=== PATIENT | female | born 1955 | race Caucasian/White ===

== ENCOUNTER 2018-01-16 14:45 | Inpatient (IN) | payer MEDICAID ==
[~2018-01-16] VITALS: Ht 165.1 cm; Wt 48.0 kg
[~2018-01-16 14:45] MED LIST: AMOX-580 PO; DIAZ10TA4 PO; DOCU100C40 PO; KEP500T PO; METH-603 PO
[2018-01-16] MEDS ORDERED: LORazepam 1 MG tablet PO ONE (15:10)
[2018-01-16] MEDS ORDERED: normal saline 1000ML IV soln IVB ONE (15:10)
[2018-01-16] MEDS ORDERED: ondansetron/PF 4mg/2ml inj IV ONE (15:10)
[2018-01-16 15:36] LABS: BASOPHILS % (AUTO) 0.1 % (0-1); EOSINOPHILS % (AUTO) 0 % (0-6); HEMATOCRIT 46.8 % (35.0-45.0); LYMPHOCYTES # (AUTO) 0.9 X10'3 (1.1-4.8); LYMPHOCYTES % (AUTO) 5.9 % (21-51); MEAN CORPUSCULAR HGB CONC 34.3 % (33.0-36.5); MEAN CORPUSCULAR VOLUME 84.5 FL (78-98); MEAN PLATELET VOLUME 8.8 FL (7.4-10.4); MONOCYTES # (AUTO) 0.5 X10'3 (0-0.9); MONOCYTES % (AUTO) 3.6 % (2-12); NEUTROPHILS # (AUTO) 13.8 X10'3 (1.8-7.7); NEUTROPHILS % (AUTO) 90.4 % (42-75); PLATELET COUNT 197 X10'3 (140-440); RED BLOOD COUNT 5.54 X10'6 (4.20-5.60); RED CELL DISTRIBUTION WIDTH 14.7 % (11.5-14.5); WHITE BLOOD COUNT 15.3 X10'3 (4.5-11.0)
[2018-01-16 15:52] LABS: ALANINE AMINOTRANSFERASE 31 U/L (12-78); ALBUMIN 3.9 G/DL (3.4-5.0); ALBUMIN/GLOBULIN RATIO 1.3 (1.1-1.5); ALKALINE PHOSPHATASE 96 IU/L (46-116); ANION GAP 14 (8-16); ASPARTATE AMINO TRANSFERASE 29 U/L (10-37); BILIRUBIN,TOTAL 0.3 MG/DL (0.1-1.0); BLOOD UREA NITROGEN 17 MG/DL (7-18); BUN/CREATININE RATIO 18.1 (6.6-38.0); CALCIUM 9.2 MG/DL (8.5-10.1); CHLORIDE 108 MMOL/L (99-107); CREATININE 0.94 MG/DL (0.40-0.90); ETHANOL < 0.010 GM/DL (0.0-0.010); MAGNESIUM 2.3 MG/DL (1.5-2.4); SODIUM 145 MMOL/L (135-145); TOTAL CARBON DIOXIDE 23.4 MMOL/L (24-32); TOTAL PROTEIN 6.8 G/DL (6.4-8.2); eGFR 61 ML/MIN
[2018-01-16 15:56] LABS: GLUCOSE 48 MG/DL (70-104)
[2018-01-16] MEDS ORDERED: proCHLORperazine 10 MG/2 ml inj IV ONE (16:15)
[2018-01-16] MEDS ORDERED: potassium Cl 20 mEq SR tablet PO ONE (16:15)
[2018-01-16 16:26] LABS: CLARITY,URINE CLEAR (Clear); COLOR,URINE YELLOW (Yellow); GLUCOSE, URINE NEGATIVE (Neg); KETONES,URINE NEGATIVE (Neg); LEUKOCYTE ESTERASE ,URINE NEGATIVE (Neg); NITRITES, URINE NEGATIVE (Neg); OCCULT BLOOD,URINE NEGATIVE (Neg); PH,URINE 5.5 (4.8-8.0); PROTEIN,URINE NEGATIVE (Neg); UROBILINOGEN,URINE 0.2 E.U/dL (0.2-1.0)
[2018-01-16 16:31] LABS: UA COLLECTION TYPE STRAIGHT CATH; URINE AMPHETAMINE SCREEN NEGATIVE (Neg); URINE BARBITUATE SCREEN NEGATIVE (Neg); URINE BENZODIAZEPINES SCREEN NEGATIVE (Neg); URINE CANNABINOID SCREEN NEGATIVE (Neg); URINE COCAINE SCREEN NEGATIVE (Neg); URINE METHADONE SCREEN NEGATIVE (Neg); URINE OPIATE SCREEN NEGATIVE (Neg); URINE PHENCYCLIDINE SCREEN NEGATIVE (Neg)
[2018-01-16] MEDS ORDERED: Dextrose 10%-water IV solution 1,000 ML IV ONE (16:48)
[2018-01-16] MEDS ORDERED: dextrose 50%-water 50ml dispensing syringe IV ONE (16:50)
[2018-01-16] MEDS ORDERED: diazepam 5mg tablet PO PRN (17:35)
[2018-01-16] MEDS ORDERED: MESSAGE TO PHARMACY PO ONE (17:40)
[2018-01-16] MEDS ORDERED: magnesium hydroxide 30ml (MOM) UD suspension PO PRN (17:40)
[2018-01-16] MEDS ORDERED: morphine 4 MG/ML inj SYRINge IV PRN (17:40)
[2018-01-16] MEDS ORDERED: insulin Lispro (HumaLOG) vial - multi-dose SQ SCH (17:40)
[2018-01-16] MEDS ORDERED: mag hydrox/Alum hydrox/simeth 30ml oral suspension PO PRN (17:40)
[2018-01-16] MEDS ORDERED: glucagon, human recombinant 1mg kit SUBCUT PRN (17:40)
[2018-01-16] MEDS ORDERED: dextrose ORAL solution 15 GM/59 ML bottle PO PRN ×2 (17:40)
[2018-01-16] MEDS ORDERED: dextrose 50%-water 50ml dispensing syringe IV PRN (17:40)
[2018-01-16] MEDS ORDERED: ondansetron/PF 4mg/2ml inj IV PRN (17:40)
[2018-01-16] MEDS ORDERED: acetaminophen 325mg tablet PO PRN (17:40)
[2018-01-16] MEDS ORDERED: ipratropium/albuterol 3ml nebule NEB PRN (18:00)
[2018-01-16 18:20] LABS: HEMOGLOBIN A1C 5.1 % (4.5-6.2)
[2018-01-16] MEDS: normal saline 1000ml 1,000 ML IV SCH ×2 (20:04→20:15)
[2018-01-16] MEDS: levetiracetam 250mg tablet PO SCH (20:04)
[2018-01-16] MEDS: dextrose 50%-water 50ml dispensing syringe IV PRN ×2 (20:13→20:14)
[2018-01-16] MEDS: insulin glargine (Lantus) pen - multi-dose SQ SCH (21:00)
[2018-01-16 21:10] VITALS: BP 142/85
[2018-01-16] MEDS: morphine 4 MG/ML inj SYRINge IV PRN (22:10)
[2018-01-17] VITALS: BP 158/83
[2018-01-17 00:57] LABS: BASOPHILS # (AUTO) 0.1 X10'3 (0-0.2); BASOPHILS % (AUTO) 0.8 % (0-1); EOSINOPHILS # (AUTO) 0.2 X10'3 (0-0.9); EOSINOPHILS % (AUTO) 1.3 % (0-6); HEMOGLOBIN 14.1 g/dl (12.0-16.0); LYMPHOCYTES # (AUTO) 1.7 X10'3 (1.1-4.8); LYMPHOCYTES % (AUTO) 13.9 % (21-51); MEAN CORPUSCULAR HEMOGLOBIN 28.7 PG (27.0-31.0); MEAN CORPUSCULAR HGB CONC 33.6 % (33.0-36.5); MEAN CORPUSCULAR VOLUME 85.5 FL (78-98); MEAN PLATELET VOLUME 8.9 FL (7.4-10.4); MONOCYTES # (AUTO) 0.6 X10'3 (0-0.9); MONOCYTES % (AUTO) 5.2 % (2-12); NEUTROPHILS # (AUTO) 9.8 X10'3 (1.8-7.7); NEUTROPHILS % (AUTO) 78.8 % (42-75); PLATELET COUNT 171 X10'3 (140-440); RED BLOOD COUNT 4.92 X10'6 (4.20-5.60); RED CELL DISTRIBUTION WIDTH 15.2 % (11.5-14.5); WHITE BLOOD COUNT 12.4 X10'3 (4.5-11.0)
[2018-01-17 01:08] LABS: ALANINE AMINOTRANSFERASE 27 U/L (12-78); ALBUMIN 3.2 G/DL (3.4-5.0); ALBUMIN/GLOBULIN RATIO 1.4 (1.1-1.5); ALKALINE PHOSPHATASE 82 IU/L (46-116); ANION GAP 10 (8-16); ASPARTATE AMINO TRANSFERASE 28 U/L (10-37); BILIRUBIN,TOTAL 0.4 MG/DL (0.1-1.0); BLOOD UREA NITROGEN 14 MG/DL (7-18); BUN/CREATININE RATIO 16.7 (6.6-38.0); CALCIUM 8.3 MG/DL (8.5-10.1); CHLORIDE 108 MMOL/L (99-107); CREATININE 0.84 MG/DL (0.40-0.90); GLUCOSE 199 MG/DL (70-104); POTASSIUM 4.1 MMOL/L (3.5-5.1); SODIUM 143 MMOL/L (135-145); TOTAL CARBON DIOXIDE 25.1 MMOL/L (24-32); TOTAL PROTEIN 5.5 G/DL (6.4-8.2); eGFR 69 ML/MIN
[2018-01-17] MEDS: morphine 4 MG/ML inj SYRINge IV PRN ×4 (02:08→18:49)
[2018-01-17] MEDS: normal saline 1000ml 1,000 ML IV SCH ×2 (06:09→23:36)
[2018-01-17] MEDS: LORazepam 2 mg/ml vial IV PRN ×2 (06:55→21:18)
[2018-01-17 07:00] VITALS: BP 99/58
[2018-01-17 08:00] VITALS: BP_SYST 135; BP_SYST 148; BP_SYST 149; BP_DIAS 93; BP_DIAS 94; BP_DIAS 97
[2018-01-17] MEDS: levetiracetam 250mg tablet PO SCH ×2 (09:21→21:19)
[2018-01-17] MEDS: docusate sod 100mg capsule PO SCH (09:21)
[2018-01-17 11:00] VITALS: BP 148/94
[2018-01-17] MEDS: enoxaparin 40mg/0.4ml syringe SQ SCH (13:54)
[2018-01-17] MEDS ORDERED: enoxaparin 30mg/0.3ml syringe SQ SCH (14:00)
[2018-01-17 20:00] VITALS: BP_SYST 138; BP_SYST 144; BP_SYST 147; BP_DIAS 89; BP_DIAS 92; BP_DIAS 93
[2018-01-17] MEDS: insulin glargine (Lantus) pen - multi-dose SQ SCH (21:00)
[2018-01-18] VITALS: BP 149/93
[2018-01-18] MEDS: morphine 4 MG/ML inj SYRINge IV PRN ×4 (03:05→23:55)
[2018-01-18 07:04] VITALS: BP 178/104
[2018-01-18 07:14] LABS: BASOPHILS % (AUTO) 0.9 % (0-1); HEMATOCRIT 36.9 % (35.0-45.0); HEMOGLOBIN 12.4 g/dl (12.0-16.0); LYMPHOCYTES # (AUTO) 1.4 X10'3 (1.1-4.8); LYMPHOCYTES % (AUTO) 30.2 % (21-51); MEAN CORPUSCULAR HGB CONC 33.5 % (33.0-36.5); MEAN CORPUSCULAR VOLUME 86.6 FL (78-98); MEAN PLATELET VOLUME 9.4 FL (7.4-10.4); MONOCYTES # (AUTO) 0.2 X10'3 (0-0.9); MONOCYTES % (AUTO) 5.2 % (2-12); NEUTROPHILS % (AUTO) 62.7 % (42-75); PLATELET COUNT 139 X10'3 (140-440); RED BLOOD COUNT 4.27 X10'6 (4.20-5.60); WHITE BLOOD COUNT 4.8 X10'3 (4.5-11.0)
[2018-01-18 07:29] LABS: ALANINE AMINOTRANSFERASE 26 U/L (12-78); ALBUMIN 3.1 G/DL (3.4-5.0); ALBUMIN/GLOBULIN RATIO 1.3 (1.1-1.5); ALKALINE PHOSPHATASE 70 IU/L (46-116); ANION GAP 9 (8-16); ASPARTATE AMINO TRANSFERASE 22 U/L (10-37); BILIRUBIN,TOTAL 0.6 MG/DL (0.1-1.0); BLOOD UREA NITROGEN 12 MG/DL (7-18); BUN/CREATININE RATIO 15.8 (6.6-38.0); CALCIUM 8.6 MG/DL (8.5-10.1); CHLORIDE 113 MMOL/L (99-107); CREATININE 0.76 MG/DL (0.40-0.90); GLUCOSE 100 MG/DL (70-104); POTASSIUM 3.9 MMOL/L (3.5-5.1); SODIUM 146 MMOL/L (135-145); TOTAL CARBON DIOXIDE 24.1 MMOL/L (24-32); TOTAL PROTEIN 5.5 G/DL (6.4-8.2); eGFR 77 ML/MIN
[2018-01-18 08:00] VITALS: BP_SYST 141; BP_SYST 142; BP_SYST 152; BP_DIAS 100; BP_DIAS 94; BP_DIAS 95
[2018-01-18] MEDS: enoxaparin 40mg/0.4ml syringe SQ SCH (08:00)
[2018-01-18] MEDS ORDERED: enoxaparin 30mg/0.3ml syringe SUBCUT SCH (08:00)
[2018-01-18] MEDS: docusate sod 100mg capsule PO SCH (08:00)
[2018-01-18] MEDS: levetiracetam 250mg tablet PO SCH (09:33)
[2018-01-18 11:00] VITALS: BP 148/103
[2018-01-18] MEDS: normal saline 1000ml 1,000 ML IV SCH ×2 (17:00→19:36)
[2018-01-18 20:00] VITALS: BP_SYST 137; BP_SYST 145; BP_SYST 153; BP_DIAS 104; BP_DIAS 88; BP_DIAS 95; BP_DIAS 96
[2018-01-18] MEDS: insulin glargine (Lantus) pen - multi-dose SQ SCH (21:00)
[2018-01-18] MEDS: LORazepam 2 mg/ml vial IV PRN (21:05)
[2018-01-19] VITALS: BP 162/98
[2018-01-19] MEDS: LORazepam 2 mg/ml vial IV PRN ×2 (03:06→13:41)
[2018-01-19 05:30] LABS: BASOPHILS # (AUTO) 0.1 X10'3 (0-0.2); BASOPHILS % (AUTO) 1.1 % (0-1); EOSINOPHILS # (AUTO) 0.1 X10'3 (0-0.9); EOSINOPHILS % (AUTO) 1.7 % (0-6); HEMATOCRIT 38.1 % (35.0-45.0); HEMOGLOBIN 13.1 g/dl (12.0-16.0); LYMPHOCYTES # (AUTO) 1.2 X10'3 (1.1-4.8); LYMPHOCYTES % (AUTO) 22.9 % (21-51); MEAN CORPUSCULAR HEMOGLOBIN 29.3 PG (27.0-31.0); MEAN CORPUSCULAR HGB CONC 34.3 % (33.0-36.5); MEAN CORPUSCULAR VOLUME 85.4 FL (78-98); MEAN PLATELET VOLUME 9.4 FL (7.4-10.4); MONOCYTES # (AUTO) 0.4 X10'3 (0-0.9); MONOCYTES % (AUTO) 7.1 % (2-12); NEUTROPHILS # (AUTO) 3.6 X10'3 (1.8-7.7); NEUTROPHILS % (AUTO) 67.2 % (42-75); PLATELET COUNT 123 X10'3 (140-440); RED BLOOD COUNT 4.46 X10'6 (4.20-5.60); RED CELL DISTRIBUTION WIDTH 15.5 % (11.5-14.5); WHITE BLOOD COUNT 5.4 X10'3 (4.5-11.0)
[2018-01-19] MEDS: normal saline 1000ml 1,000 ML IV SCH ×2 (05:36→15:36)
[2018-01-19] MEDS: morphine 4 MG/ML inj SYRINge IV PRN (05:48)
[2018-01-19 06:21] LABS: ALANINE AMINOTRANSFERASE 28 U/L (12-78); ALBUMIN 3.1 G/DL (3.4-5.0); ALBUMIN/GLOBULIN RATIO 1.3 (1.1-1.5); ALKALINE PHOSPHATASE 71 IU/L (46-116); ANION GAP 9 (8-16); ASPARTATE AMINO TRANSFERASE 23 U/L (10-37); BILIRUBIN,TOTAL 0.5 MG/DL (0.1-1.0); BLOOD UREA NITROGEN 12 MG/DL (7-18); BUN/CREATININE RATIO 15.8 (6.6-38.0); CALCIUM 8.5 MG/DL (8.5-10.1); CHLORIDE 113 MMOL/L (99-107); CREATININE 0.76 MG/DL (0.40-0.90); GLUCOSE 100 MG/DL (70-104); POTASSIUM 3.6 MMOL/L (3.5-5.1); SODIUM 147 MMOL/L (135-145); TOTAL CARBON DIOXIDE 24.6 MMOL/L (24-32); TOTAL PROTEIN 5.5 G/DL (6.4-8.2); eGFR 77 ML/MIN
[2018-01-19] MEDS: docusate sod 100mg capsule PO SCH (08:00)
[2018-01-19 08:22] VITALS: BP 161/104
[2018-01-19] MEDS ORDERED: iohexol 300mg/ml 100ml inj. ONE (09:31)
[2018-01-19] MEDS: enoxaparin 40mg/0.4ml syringe SQ SCH (11:29)
[2018-01-19 12:06] VITALS: BP 153/100
[2018-01-19 15:35] VITALS: BP_SYST 137; BP_SYST 144; BP_SYST 162; BP_DIAS 98
[2018-01-19] MEDS ORDERED: LORazepam 2 mg/ml vial IV PRN (15:50)
[2018-01-19 20:00] VITALS: BP_SYST 132; BP_SYST 134; BP_SYST 142; BP_DIAS 101; BP_DIAS 95; BP_DIAS 98
[2018-01-20] VITALS: BP 138/104
[2018-01-20 05:43] LABS: BASOPHILS # (AUTO) 0.1 X10'3 (0-0.2); EOSINOPHILS # (AUTO) 0.2 X10'3 (0-0.9); EOSINOPHILS % (AUTO) 2.5 % (0-6); HEMATOCRIT 39.5 % (35.0-45.0); HEMOGLOBIN 13.8 g/dl (12.0-16.0); LYMPHOCYTES # (AUTO) 1.3 X10'3 (1.1-4.8); LYMPHOCYTES % (AUTO) 21.1 % (21-51); MEAN CORPUSCULAR HEMOGLOBIN 29.4 PG (27.0-31.0); MEAN CORPUSCULAR VOLUME 83.9 FL (78-98); MEAN PLATELET VOLUME 9.1 FL (7.4-10.4); MONOCYTES # (AUTO) 0.4 X10'3 (0-0.9); MONOCYTES % (AUTO) 7.1 % (2-12); NEUTROPHILS # (AUTO) 4.2 X10'3 (1.8-7.7); NEUTROPHILS % (AUTO) 68.3 % (42-75); PLATELET COUNT 126 X10'3 (140-440); WHITE BLOOD COUNT 6.2 X10'3 (4.5-11.0)
[2018-01-20 05:57] LABS: ALANINE AMINOTRANSFERASE 41 U/L (12-78); ALBUMIN 3.4 G/DL (3.4-5.0); ALBUMIN/GLOBULIN RATIO 1.3 (1.1-1.5); ALKALINE PHOSPHATASE 81 IU/L (46-116); ANION GAP 10 (8-16); ASPARTATE AMINO TRANSFERASE 32 U/L (10-37); BILIRUBIN,TOTAL 0.6 MG/DL (0.1-1.0); BLOOD UREA NITROGEN 14 MG/DL (7-18); BUN/CREATININE RATIO 18.9 (6.6-38.0); CALCIUM 9.1 MG/DL (8.5-10.1); CHLORIDE 110 MMOL/L (99-107); CREATININE 0.74 MG/DL (0.40-0.90); GLUCOSE 95 MG/DL (70-104); POTASSIUM 3.9 MMOL/L (3.5-5.1); SODIUM 145 MMOL/L (135-145); TOTAL CARBON DIOXIDE 24.9 MMOL/L (24-32); eGFR 80 ML/MIN
[2018-01-20] MEDS: docusate sod 100mg capsule PO SCH (07:23)
[2018-01-20] MEDS: enoxaparin 40mg/0.4ml syringe SQ SCH (07:24)
[2018-01-20 08:00] VITALS: BP_SYST 127; BP_SYST 131; BP_SYST 134; BP_DIAS 110; BP_DIAS 89; BP_DIAS 96; BP_DIAS 98
[2018-01-20 12:36] VITALS: BP 145/95
[2018-01-20 13:28] LABS: C-PEPTIDE, SERUM 0.3 ng/mL (1.1-4.4); INSULIN 6.4 uIU/mL (2.6-24.9)
[2018-01-20] MEDS ORDERED: DIAZ10TA4 PO (16:48)
== END 2018-01-20 15:35 | DRG 53 ==
LOC: ER 14:45 → ED HOLD 17:36 → EDBEDREQ 20:16 → SUR 3N 21:00
PROVIDERS: ADMIT Family Medicine; ATTEND Internal Medicine
PROC: 4A10X4Z Monitoring of Central Nervous Electrical Activity, External Approach (ICD-10-PCS; principal; 2018-01-18)
PROC: BW211ZZ Computerized Tomography (CT Scan) of Abdomen and Pelvis using Low Osmolar Contrast (ICD-10-PCS; 2018-01-19)
DX: G40.909 Epilepsy, unspecified, not intractable, without status epilepticus (principal); F20.9 Schizophrenia, unspecified; I10 Essential (primary) hypertension; E16.2 Hypoglycemia, unspecified; E87.6 Hypokalemia; F31.9 Bipolar disorder, unspecified; M81.0 Age-related osteoporosis without current pathological fracture; B19.20 Unspecified viral hepatitis C without hepatic coma; F12.90 Cannabis use, unspecified, uncomplicated; G89.29 Other chronic pain; M54.9 Dorsalgia, unspecified; F17.210 Nicotine dependence, cigarettes, uncomplicated; Z85.118 Personal history of other malignant neoplasm of bronchus and lung; Z59.9 Problem related to housing and economic circumstances, unspecified; Z83.3 Family history of diabetes mellitus; Z68.1 Body mass index [BMI] 19.9 or less, adult; Z79.899 Other long term (current) drug therapy
CPT/HCPCS: 36415; 70551; 71046; 74018; 74177; 80053; 80305; 80320; 81003; 82948; 83036; 83525; 83605; 83735; 84681; 85025; 87040; 87070; 93005; 94760; 95816; 96374; 96375; 99285; A6258; J0780; J1650; J1815; J2060; J2270; J2405; J7030; Q9967

== ENCOUNTER 2018-01-20 15:44 | Emergency (ER) | payer MEDICAID ==
[~2018-01-20] VITALS: Ht 162.6 cm; Wt 48.0 kg
[2018-01-20] MEDS ORDERED: DIAZ10TA4 PO (16:48)
[2018-01-20] MEDS ORDERED: diazepam 5mg tablet PO PRN (17:05)
[2018-01-20 17:36] VITALS: BP 148/102
== END 2018-01-20 19:42 | disposition home or self-care (01) ==
LOC: ER 15:45
DX: G40.909 Epilepsy, unspecified, not intractable, without status epilepticus (principal); I10 Essential (primary) hypertension; G89.29 Other chronic pain; F12.90 Cannabis use, unspecified, uncomplicated; M81.0 Age-related osteoporosis without current pathological fracture; F11.10 Opioid abuse, uncomplicated; Z98.890 Other specified postprocedural states; Z56.0 Unemployment, unspecified
CPT/HCPCS: 99283

== ENCOUNTER 2018-04-16 16:21 | Emergency (ER) | payer MEDICAID ==
[~2018-04-16] VITALS: Ht 157.5 cm; Wt 60.0 kg
[~2018-04-16 16:21] MED LIST changes: -AMOX-580 PO; -DOCU100C40 PO; -KEP500T PO; -METH-603 PO; +sodium bicarbonate (8.4%) 1 mEq/ml syringe ONE
[2018-04-16] MEDS ORDERED: dextrose 50%-water 50ml dispensing syringe IV ONE ×2 (16:40→17:50)
[2018-04-16] MEDS ORDERED: dextrose 5%-normal saline 1,000 ML IV ONE (16:50)
[2018-04-16] MEDS ORDERED: normal saline 1000ML IV soln IVB ONE (17:35)
[2018-04-16] MEDS ORDERED: HYDROcodone/acetaminophen 5mg/325mg tablet PO ONE (19:15)
[2018-04-16 20:24] LABS: BASOPHILS % (AUTO) 0 % (0-1); EOSINOPHILS % (AUTO) 0.1 % (0-6); HEMOGLOBIN 14.3 g/dl (12.0-16.0); LYMPHOCYTES % (AUTO) 7.4 % (21-51); MEAN CORPUSCULAR HEMOGLOBIN 29.4 PG (27.0-31.0); MEAN CORPUSCULAR HGB CONC 34.1 % (33.0-36.5); MEAN CORPUSCULAR VOLUME 86.4 FL (78-98); MEAN PLATELET VOLUME 9.1 FL (7.4-10.4); MONOCYTES # (AUTO) 0.2 X10'3 (0-0.9); MONOCYTES % (AUTO) 1.2 % (2-12); NEUTROPHILS # (AUTO) 12.3 X10'3 (1.8-7.7); NEUTROPHILS % (AUTO) 91.3 % (42-75); PLATELET COUNT 197 X10'3 (140-440); RED BLOOD COUNT 4.86 X10'6 (4.20-5.60); RED CELL DISTRIBUTION WIDTH 14.7 % (11.5-14.5); WHITE BLOOD COUNT 13.5 X10'3 (4.5-11.0)
[2018-04-16 20:38] LABS: CLARITY,URINE CLEAR (Clear); COLOR,URINE YELLOW (Yellow); GLUCOSE, URINE 250 mg/dl (Neg); KETONES,URINE NEGATIVE (Neg); LEUKOCYTE ESTERASE ,URINE NEGATIVE (Neg); NITRITES, URINE NEGATIVE (Neg); OCCULT BLOOD,URINE NEGATIVE (Neg); PH,URINE 5.5 (4.8-8.0); PROTEIN,URINE NEGATIVE (Neg); UROBILINOGEN,URINE 0.2 E.U/dL (0.2-1.0)
[2018-04-16 20:38] LABS: ALANINE AMINOTRANSFERASE 22 U/L (12-78); ALBUMIN 3.3 G/DL (3.4-5.0); ALBUMIN/GLOBULIN RATIO 1.1 (1.1-1.5); ALKALINE PHOSPHATASE 131 IU/L (46-116); ANION GAP 9 (8-16); ASPARTATE AMINO TRANSFERASE 21 U/L (10-37); BILIRUBIN,TOTAL 0.2 MG/DL (0.1-1.0); BLOOD UREA NITROGEN 22 MG/DL (7-18); BUN/CREATININE RATIO 23.7 (6.6-38.0); CALCIUM 8.3 MG/DL (8.5-10.1); CHLORIDE 107 MMOL/L (99-107); CREATININE 0.93 MG/DL (0.40-0.90); GLUCOSE 165 MG/DL (70-104); POTASSIUM 3.7 MMOL/L (3.5-5.1); SODIUM 139 MMOL/L (135-145); TOTAL PROTEIN 6.2 G/DL (6.4-8.2); eGFR 61 ML/MIN
[2018-04-16 20:42] LABS: ETHANOL < 0.010 GM/DL (0.0-0.010); TROPONIN I < 0.04 NG/ML (0.0-0.05)
[2018-04-16 20:46] LABS: UA COLLECTION TYPE CLN CATCH MIDSTREAM
[2018-04-16 20:47] LABS: URINE AMPHETAMINE SCREEN NEGATIVE (Neg); URINE BARBITUATE SCREEN NEGATIVE (Neg); URINE BENZODIAZEPINES SCREEN NEGATIVE (Neg); URINE CANNABINOID SCREEN NEGATIVE (Neg); URINE COCAINE SCREEN NEGATIVE (Neg); URINE METHADONE SCREEN POSITIVE (Neg); URINE OPIATE SCREEN NEGATIVE (Neg); URINE PHENCYCLIDINE SCREEN NEGATIVE (Neg)
[2018-04-17] MEDS: HYDROcodone/acetaminophen 5mg/325mg tablet PO PRN ×2 (04:51→11:15)
[2018-04-17 06:20] VITALS: BP 147/99
[2018-04-17] MEDS ORDERED: KEP500T PO (10:29)
[2018-04-18 13:26] LABS: C-PEPTIDE, SERUM 1.9 ng/mL (1.1-4.4); INSULIN 12.9 uIU/mL (2.6-24.9)
== END 2018-04-17 12:45 | disposition home or self-care (01) ==
LOC: ER 16:22
DX: E16.2 Hypoglycemia, unspecified (principal); I10 Essential (primary) hypertension; G89.29 Other chronic pain; M81.0 Age-related osteoporosis without current pathological fracture; F12.90 Cannabis use, unspecified, uncomplicated; F11.90 Opioid use, unspecified, uncomplicated; Z85.118 Personal history of other malignant neoplasm of bronchus and lung; Z90.89 Acquired absence of other organs; Z56.0 Unemployment, unspecified; Z98.890 Other specified postprocedural states
CPT/HCPCS: 36415; 71045; 80053; 80305; 80320; 81003; 82948; 83525; 84443; 84484; 84681; 85025; 93005; 96374; 96376; 99285; J7030; J7042

== ENCOUNTER 2018-08-03 16:29 | Emergency (ER) | payer MEDICAID ==
[~2018-08-03] VITALS: Ht 162.6 cm; Wt 47.7 kg
[~2018-08-03 16:29] MED LIST changes: -DIAZ10TA4 PO; +KEP500T PO; -sodium bicarbonate (8.4%) 1 mEq/ml syringe ONE
[2018-08-03] MEDS ORDERED: LORazepam 2 mg/ml vial IV ONE (16:50)
[2018-08-03] MEDS ORDERED: normal saline 1000ML IV soln IVB ONE (16:50)
[2018-08-03] MEDS: magnesium 1gm/100ml D5W IVPB 100 ML IV SCH ×2 (17:54→18:43)
[2018-08-03 17:58] LABS: BASOPHILS % (AUTO) 0.7 % (0-1); EOSINOPHILS % (AUTO) 0.6 % (0-6); HEMATOCRIT 44.9 % (35.0-45.0); HEMOGLOBIN 15.1 g/dl (12.0-16.0); LYMPHOCYTES # (AUTO) 0.7 X10'3 (1.1-4.8); LYMPHOCYTES % (AUTO) 12.5 % (21-51); MEAN CORPUSCULAR HGB CONC 33.8 % (33.0-36.5); MEAN PLATELET VOLUME 9.9 FL (7.4-10.4); MONOCYTES # (AUTO) 0.2 X10'3 (0-0.9); MONOCYTES % (AUTO) 2.9 % (2-12); NEUTROPHILS # (AUTO) 4.9 X10'3 (1.8-7.7); NEUTROPHILS % (AUTO) 83.3 % (42-75); PLATELET COUNT 118 X10'3 (140-440); RED BLOOD COUNT 5.22 X10'6 (4.20-5.60); RED CELL DISTRIBUTION WIDTH 14.2 % (11.5-14.5); WHITE BLOOD COUNT 5.9 X10'3 (4.5-11.0)
[2018-08-03 18:14] LABS: ALANINE AMINOTRANSFERASE 46 U/L (12-78); ALBUMIN 3.9 G/DL (3.4-5.0); ALBUMIN/GLOBULIN RATIO 1.3 (1.1-1.5); ALKALINE PHOSPHATASE 128 IU/L (46-116); ANION GAP 9 (8-16); ASPARTATE AMINO TRANSFERASE 37 U/L (10-37); BILIRUBIN,TOTAL 0.4 MG/DL (0.1-1.0); BLOOD UREA NITROGEN 15 MG/DL (7-18); CALCIUM 9.1 MG/DL (8.5-10.1); CHLORIDE 102 MMOL/L (99-107); CREATINE KINASE 47 U/L (26-192); CREATININE 0.94 MG/DL (0.40-0.90); ETHANOL < 0.010 GM/DL (0.0-0.010); GLUCOSE 93 MG/DL (70-104); POTASSIUM 4.3 MMOL/L (3.5-5.1); SODIUM 140 MMOL/L (135-145); TOTAL CARBON DIOXIDE 28.9 MMOL/L (24-32); TOTAL PROTEIN 6.9 G/DL (6.4-8.2); eGFR 61 ML/MIN
[2018-08-03 19:20] VITALS: BP 169/103
[2018-08-03 20:01] LABS: CLARITY,URINE CLEAR (Clear); COLOR,URINE STRAW (Yellow); GLUCOSE, URINE NEGATIVE (Neg); KETONES,URINE NEGATIVE (Neg); LEUKOCYTE ESTERASE ,URINE NEGATIVE (Neg); NITRITES, URINE NEGATIVE (Neg); OCCULT BLOOD,URINE NEGATIVE (Neg); PROTEIN,URINE NEGATIVE (Neg); UROBILINOGEN,URINE 0.2 E.U/dL (0.2-1.0)
[2018-08-03 20:02] LABS: URINE AMPHETAMINE SCREEN NEGATIVE (Neg); URINE BARBITUATE SCREEN NEGATIVE (Neg); URINE BENZODIAZEPINES SCREEN NEGATIVE (Neg); URINE CANNABINOID SCREEN NEGATIVE (Neg); URINE COCAINE SCREEN NEGATIVE (Neg); URINE METHADONE SCREEN POSITIVE (Neg); URINE OPIATE SCREEN NEGATIVE (Neg); URINE PHENCYCLIDINE SCREEN NEGATIVE (Neg)
[2018-08-03 20:07] LABS: UA COLLECTION TYPE CLN CATCH MIDSTREAM
== END 2018-08-03 19:25 | disposition home or self-care (01) ==
LOC: ER 16:30
DX: G40.909 Epilepsy, unspecified, not intractable, without status epilepticus (principal); I10 Essential (primary) hypertension; G89.29 Other chronic pain; M81.0 Age-related osteoporosis without current pathological fracture; F12.90 Cannabis use, unspecified, uncomplicated; F11.90 Opioid use, unspecified, uncomplicated; Z56.0 Unemployment, unspecified; Z90.89 Acquired absence of other organs; Z98.890 Other specified postprocedural states; Z85.118 Personal history of other malignant neoplasm of bronchus and lung
CPT/HCPCS: 36415; 80053; 80305; 80320; 81003; 82550; 85025; 93005; 96365; 96366; 96375; 99285; J2060; J7030

== ENCOUNTER 2018-10-03 12:24 | Emergency (ER) | payer MEDICAID, OTHER ==
[~2018-10-03] VITALS: Ht 162.6 cm; Wt 50.0 kg
--- NOTE | 2018-10-03 13:21 | NUR ---
ASSUMED CARE OF PT FROM JAMSHID GARCIA, PT IS RESTING QUIETLY ON GURNEY, RESP EVEN AND UNLABORED
--- NOTE | 2018-10-03 13:37 | NUR ---
PT IS 63YO FEMALE C/O HEADACHE AFTER HAVING SZ, PT HAS NO PMD, NO NEUROLOGIST, "MY SON GIVES ME MY MEDS", PT IS NONCOMPLIANT WITH TAKING MEDS PRESCRIBED, PT IS GCS 15, ALERT, RESP EVEN AND UNLABORED, SKIN P/W/D, WAITING TO GO TO CT
[2018-10-03] MEDS ORDERED: ketorolac trometh. 30mg/ml inj. IM ONE (14:30)
--- NOTE | 2018-10-03 14:59 | NUR ---
PT SAID SHE CAN TAKE CAB HOME WHERE SHE LIVES WITH HER SON, HAS MONEY TO PAY FOR IT, GAVE PT SOCKS,
[2018-10-03 15:00] VITALS: BP 154/91
== END 2018-10-03 15:01 | disposition home or self-care (01) ==
LOC: ER 12:24
DX: G40.909 Epilepsy, unspecified, not intractable, without status epilepticus (principal); I10 Essential (primary) hypertension; G89.29 Other chronic pain; F11.10 Opioid abuse, uncomplicated; M81.0 Age-related osteoporosis without current pathological fracture; F12.10 Cannabis abuse, uncomplicated; Z85.118 Personal history of other malignant neoplasm of bronchus and lung; Z86.19 Personal history of other infectious and parasitic diseases; Z90.89 Acquired absence of other organs; Z79.899 Other long term (current) drug therapy; Z56.0 Unemployment, unspecified
CPT/HCPCS: 70450; 96372; 99284; J1885

== ENCOUNTER 2020-07-15 12:33 | Emergency (ER) | payer OTHER ==
[~2020-07-15] VITALS: Ht 162.6 cm; Wt 47.7 kg
--- NOTE | 2020-07-15 14:06 | NUR ---
pt out to ct via vishnu with global sales director
[2020-07-15 14:19] LABS: BASOPHILS % (AUTO) 0.4 % (0-1); EOSINOPHILS # (AUTO) 0.1 X10'3 (0-0.9); HEMATOCRIT 44.4 % (35.0-45.0); HEMOGLOBIN 14.9 g/dl (12.0-16.0); LYMPHOCYTES # (AUTO) 1.1 X10'3 (1.1-4.8); LYMPHOCYTES % (AUTO) 14.9 % (21-51); MEAN CORPUSCULAR HEMOGLOBIN 28.8 PG (27.0-31.0); MEAN CORPUSCULAR HGB CONC 33.5 g/dL (33.0-36.5); MEAN CORPUSCULAR VOLUME 86.1 FL (78-98); MEAN PLATELET VOLUME 10.1 FL (7.4-10.4); MONOCYTES # (AUTO) 0.4 X10'3 (0-0.9); MONOCYTES % (AUTO) 5.4 % (2-12); NEUTROPHILS # (AUTO) 5.8 X10'3 (1.8-7.7); NEUTROPHILS % (AUTO) 78.3 % (42-75); PLATELET COUNT 154 X10'3 (140-440); RED BLOOD COUNT 5.16 X10'6 (4.20-5.60); RED CELL DISTRIBUTION WIDTH 14.6 % (11.5-14.5); WHITE BLOOD COUNT 7.5 X10'3 (4.5-11.0)
[2020-07-15 14:31] LABS: ALANINE AMINOTRANSFERASE 30 U/L (12-78); ALBUMIN 3.9 G/DL (3.4-5.0); ALBUMIN/GLOBULIN RATIO 1.3 (1.1-1.5); ALKALINE PHOSPHATASE 84 IU/L (46-116); ANION GAP 7 (8-16); ASPARTATE AMINO TRANSFERASE 26 U/L (10-37); BILIRUBIN,TOTAL 0.7 MG/DL (0.1-1.0); BLOOD UREA NITROGEN 14 MG/DL (7-18); BUN/CREATININE RATIO 15.1 (6.6-38.0); CALCIUM 9.3 MG/DL (8.5-10.1); CHLORIDE 105 MMOL/L (99-107); CREATININE 0.93 MG/DL (0.40-0.90); GLUCOSE 101 MG/DL (70-104); POTASSIUM 4.3 MMOL/L (3.5-5.1); SODIUM 142 MMOL/L (135-145); TOTAL CARBON DIOXIDE 29.9 MMOL/L (24-32); TOTAL PROTEIN 6.9 G/DL (6.4-8.2); eGFR 61 ML/MIN
[2020-07-15] MEDS ORDERED: Levetiracetam-NS 500mg/100ml 100 ML IV ONE (15:26)
--- NOTE | 2020-07-15 15:26 | NUR ---
PT HOME PHONE NUMBER: [phone]
[2020-07-15 16:56] VITALS: BP 164/98
[2020-07-15] MEDS ORDERED: Levetiracetam-NS 500mg/100ml 100 ML IV SCH (20:00)
== END 2020-07-15 16:58 | disposition home or self-care (01) ==
LOC: ER 12:33
DX: G40.909 Epilepsy, unspecified, not intractable, without status epilepticus (principal); I12.9 Hypertensive chronic kidney disease with stage 1 through stage 4 chronic kidney disease, or unspecified chronic kidney disease; N18.9 Chronic kidney disease, unspecified; G89.29 Other chronic pain; F12.90 Cannabis use, unspecified, uncomplicated; Z86.69 Personal history of other diseases of the nervous system and sense organs; Z86.19 Personal history of other infectious and parasitic diseases; Z87.440 Personal history of urinary (tract) infections; Z86.14 Personal history of Methicillin resistant Staphylococcus aureus infection; Z85.118 Personal history of other malignant neoplasm of bronchus and lung; Z90.89 Acquired absence of other organs; Z98.890 Other specified postprocedural states; Z56.0 Unemployment, unspecified; Z79.899 Other long term (current) drug therapy
CPT/HCPCS: 36415; 70450; 80053; 82948; 85025; 96365; 99284; J1953; 96374

== ENCOUNTER 2022-01-12 00:55 | Emergency (ER) | payer MEDICAID ==
[~2022-01-12] VITALS: Ht 162.6 cm; Wt 56.4 kg
[~2022-01-12 00:55] MED LIST changes: -KEP500T PO; +NO HOME MEDS
[2022-01-12 02:20] LABS: BASOPHILS % (AUTO) 0.7 % (0-1); EOSINOPHILS % (AUTO) 0.2 % (0-6); HEMATOCRIT 38.3 % (35.0-45.0); HEMOGLOBIN 12.3 g/dl (12.0-16.0); LYMPHOCYTES # (AUTO) 0.5 X10'3 (1.1-4.8); LYMPHOCYTES % (AUTO) 6.3 % (21-51); MEAN CORPUSCULAR HEMOGLOBIN 26.1 PG (27.0-31.0); MEAN CORPUSCULAR HGB CONC 32.2 g/dL (33.0-36.5); MEAN CORPUSCULAR VOLUME 81.2 FL (78-98); MONOCYTES # (AUTO) 0.4 X10'3 (0-0.9); MONOCYTES % (AUTO) 5.8 % (2-12); NEUTROPHILS # (AUTO) 6.3 X10'3 (1.8-7.7); PLATELET COUNT 189 X10'3 (140-440); RED BLOOD COUNT 4.71 X10'6 (4.20-5.60); RED CELL DISTRIBUTION WIDTH 14.8 % (11.5-14.5); WHITE BLOOD COUNT 7.3 X10'3 (4.5-11.0)
[2022-01-12 02:34] LABS: ALANINE AMINOTRANSFERASE 42 U/L (12-78); ALBUMIN 3.1 G/DL (3.4-5.0); ALBUMIN/GLOBULIN RATIO 0.9 (1.1-1.5); ALKALINE PHOSPHATASE 129 IU/L (46-116); ANION GAP 10 (8-16); ASPARTATE AMINO TRANSFERASE 34 U/L (10-37); BILIRUBIN,TOTAL 0.4 MG/DL (0.1-1.0); BLOOD UREA NITROGEN 34 MG/DL (7-18); BUN/CREATININE RATIO 53.1 (6.6-38.0); CALCIUM 8.8 MG/DL (8.5-10.1); CHLORIDE 101 MMOL/L (99-107); CREATININE 0.64 MG/DL (0.40-0.90); GLUCOSE 114 MG/DL (70-104); POTASSIUM 4.3 MMOL/L (3.5-5.1); SODIUM 138 MMOL/L (135-145); TOTAL CARBON DIOXIDE 26.9 MMOL/L (24-32); TOTAL PROTEIN 6.7 G/DL (6.4-8.2); eGFR > 90 ML/MIN
[2022-01-12 02:44] LABS: ETHANOL < 0.010 GM/DL (0.0-0.010)
[2022-01-12 04:06] LABS: URINE AMPHETAMINE SCREEN NEGATIVE (Neg); URINE BARBITUATE SCREEN NEGATIVE (Neg); URINE BENZODIAZEPINES SCREEN NEGATIVE (Neg); URINE CANNABINOID SCREEN NEGATIVE (Neg); URINE COCAINE SCREEN NEGATIVE (Neg); URINE METHADONE SCREEN NEGATIVE (Neg); URINE OPIATE SCREEN POSITIVE (Neg); URINE PHENCYCLIDINE SCREEN NEGATIVE (Neg)
--- NOTE | 2022-01-12 05:19 | NUR ---
Received pt from main ER via wheelchair, pt cooperative and is resting.
--- NOTE | 2022-01-12 06:44 | NUR ---
Received report from RADHA John. Pt. sleeping on her right side, noted rise and fall of chest. No distress noted.
--- NOTE | 2022-01-12 07:49 | NUR ---
Pt. sleeping on her right side, noted rise and fall of chest. No distress noted.
[2022-01-12] MEDS ORDERED: LISI-643 PO (08:08)
[2022-01-12] MEDS ORDERED: PANT40TA54 PO (08:08)
[2022-01-12] MEDS ORDERED: FURO-150 PO (08:08)
[2022-01-12] MEDS ORDERED: MONT-40 PO (08:08)
[2022-01-12] MEDS ORDERED: CLON-527 PO (08:08)
--- NOTE | 2022-01-12 08:29 | NUR ---
Assisted patient to restroom, pt is legally blind and needs one person assist to guide her. Pt. eating breakfast at bedside now.
[2022-01-12] MEDS: pantoprazole 40mg Tablet.DR PO SCH (09:01)
[2022-01-12] MEDS: lisinopril 10 MG tablet PO SCH (09:01)
[2022-01-12] MEDS: montelukast 10mg tablet PO SCH (09:01)
[2022-01-12] MEDS: furosemide 20MG tablet PO SCH (09:01)
--- NOTE | 2022-01-12 09:49 | NUR ---
1:1 done at bedside. Pt. cooperative. Requesting pain medication and klonopin.
[2022-01-12] MEDS: clonazePAM 1mg tablet PO PRN ×2 (10:09→20:04)
[2022-01-12] MEDS ORDERED: ibuprofen tablet 400 MG TABLET PO ONE (10:25)
[2022-01-12] MEDS ORDERED: ibuprofen 200mg tablet PO ONE (10:30)
--- NOTE | 2022-01-12 10:45 | NUR ---
Pt. assisted to restroom. Pt. lying in bed now, noted rise and fall of chest.
--- NOTE | 2022-01-12 11:45 | NUR ---
Pt. resting in bed, rise and fall of chest noted.
--- NOTE | 2022-01-12 12:43 | NUR ---
Pt. sleeping on her back, noted rise and fall of chest.
--- NOTE | 2022-01-12 13:27 | NUR ---
Pt. sleeping on her back, noted rise and fall of her chest.
--- NOTE | 2022-01-12 14:30 | NUR ---
Pt. assisted to the restroom. No distress noted.
--- NOTE | 2022-01-12 15:24 | NUR ---
Pt. lying in bed on her back with eyes closed. Noted rise and fall of chest.
--- NOTE | 2022-01-12 16:30 | NUR ---
Pt. sleeping on her back, noted rise and fall of chest.
[2022-01-12 17:51] LABS: CLARITY,URINE CLEAR (Clear); COLOR,URINE YELLOW (Yellow); GLUCOSE, URINE NEGATIVE (Neg); KETONES,URINE TRACE mg/dl (Neg); LEUKOCYTE ESTERASE ,URINE TRACE (Neg); NITRITES, URINE NEGATIVE (Neg); OCCULT BLOOD,URINE NEGATIVE (Neg); PH,URINE 6.5 (4.8-8.0); PROTEIN,URINE NEGATIVE (Neg); UROBILINOGEN,URINE 0.2 E.U/dL (0.2-1.0)
--- NOTE | 2022-01-12 17:54 | NUR ---
Coding Director assisted pt. to the restroom then set up pt. dinner at bedside by opening packages and describing where items were located. Pt. sitting on the side of her bed eating dinner.
[2022-01-12 17:56] LABS: UA COLLECTION TYPE NON-SPECIFIED
[2022-01-12 17:57] LABS: BACTERIA,URINE FEW /HPF (Neg); MUCUS STRANDS NONE SEEN /LPF (Neg); RBC,URINE NONE SEEN /HPF (0-2); SQUAMOUS EPITHELIAL CELL,UR FEW /LPF (FEW); WBC,URINE 0-4 /HPF (0-4)
--- NOTE | 2022-01-12 18:20 | NUR ---
Pt. assisted to restroom, pt had a medium BM, report given to RADHA Perez.
--- NOTE | 2022-01-12 18:30 | NUR ---
PT up to use the restroom, voided without issue. PT ate 75% of her meal.
[2022-01-12] MEDS ORDERED: HYDR-3965 PO (20:16)
--- NOTE | 2022-01-12 20:39 | NUR ---
Pt requests PRDilcia klonopin, which is given to her
--- NOTE | 2022-01-12 20:53 | NUR ---
Pt up to use the restoroom. Pt is steady on her feet, she just needs guiding due to being legally blind.
[2022-01-12] MEDS: ibuprofen tablet 400 MG TABLET PO PRN (22:19)
--- NOTE | 2022-01-12 22:21 | NUR ---
Pt demands moreno, RN talks with pharmacy, CURES report done, no moreno could be confirmed. PT is upset and tells staff she will cut our heads off. PRN motrin order obtained for pt and given to her 400mg, Q8 hours as needed.
--- NOTE | 2022-01-12 23:16 | NUR ---
Pt up to use the restroom. PT voided. Pt states she is hungry, given turkey and cheese sandwhich.
[2022-01-13] MEDS: clonazePAM 1mg tablet PO PRN ×3 (00:24→17:37)
--- NOTE | 2022-01-13 01:30 | NUR ---
Pt given crystal kong, due to agitation. 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 That shit doesn't fly with me." "I'll cut off your fucking legs. "
--- NOTE | 2022-01-13 02:22 | NUR ---
Pt is talking to self, "I dont taste like poultry. Three packages of crackers!
[2022-01-13] MEDS ORDERED: LORazepam 1 MG tablet PO ONE (02:40)
[2022-01-13] MEDS ORDERED: OLANZapine 2.5MG tablet PO ONE (02:40)
--- NOTE | 2022-01-13 02:40 | NUR ---
Pt stands up with he cane, shakes it in the air and yells "fuck you! fuck you!" She believes she is at [facility], and refuses to believe she is in the hospital. She calls staff "bitches" and states, "I'll cut your legs off." Dr. Norwood consulted, zyprexa 5mg and ativan 1mg ordered.
--- NOTE | 2022-01-13 03:30 | NUR ---
Pt up to the restroom, voids. Pt is less agitated
--- NOTE | 2022-01-13 05:38 | NUR ---
Pt is resting quietly
--- NOTE | 2022-01-13 06:32 | NUR ---
Patient laying supine. Eyes closed but does not appear to be asleep. Continue to monitor.
[2022-01-13] MEDS: furosemide 20MG tablet PO SCH (07:44)
[2022-01-13] MEDS: lisinopril 10 MG tablet PO SCH (07:44)
[2022-01-13] MEDS: pantoprazole 40mg Tablet.DR PO SCH (07:44)
[2022-01-13] MEDS: montelukast 10mg tablet PO SCH (07:44)
[2022-01-13] MEDS: ibuprofen tablet 400 MG TABLET PO PRN (07:45)
--- NOTE | 2022-01-13 08:20 | NUR ---
Patient ate breakfast and assisted to the BR (3rd time this morning0
--- NOTE | 2022-01-13 08:47 | NUR ---
[facility], evaluating patient.
--- NOTE | 2022-01-13 08:58 | NUR ---
RN gave patient a cup of coffee. No distress observed. Continue to monitor.
--- NOTE | 2022-01-13 09:01 | NUR ---
Spoke to Marco [facility]. Patient does not meet criteria for a 5150 hold. There is paperwork in the chart with a request for Probate conservatorship signed by Dr Faustin on 12/13/21. Bee Robber Anai also has been working with patient. RN to advise Dr Brown. Continue to monitor.
--- NOTE | 2022-01-13 09:19 | NUR ---
Patient cussing at staff. RN asked patient to please refrain. Patient using the F word and called RN a bitch. Continues to mumble. Continue to monitor.
--- NOTE | 2022-01-13 10:32 | NUR ---
Security called due to patient yelling and cussing at staff. Patient to BR with cane and was assisted by Tech. Patient coming out of BR and pretended to use her can as a machine gun and pointed it at RN. Patient walked back to her bed with Security at side. Continue to monitor.
[2022-01-13] MEDS: HYDROcodone/acetaminophen 5mg/325mg tablet PO PRN (12:08)
--- NOTE | 2022-01-13 12:20 | NUR ---
Patient ambulatory to with assistance of Mian Armas. Patient out of BR and assisted by RN and Tech. Patient getting confused where to go and RN and Tech attempting to direct her. Patient is obstinate, cussing at staff and refusing help although she attempted to sit on a paper trash bin she thought was a chair. RN and Tech coaxing patient to bed and RN placed her hand under her arm to assist. Patient got angry and attempted to hit RN with cane. Tech and RN got cane away from patient and got her in the bed. RN advised patient that her lunch tray was on her bedside table. Patient started screaming that she never got breakfast which she did. Patient ate 50% of her lunch. Continue to monitor.
--- NOTE | 2022-01-13 12:47 | NUR ---
RN gave patient a Banquete for pain and to prevent withdrawal. RN noted that patient came into [facility] on 10/23/21 upstairs for Failure to Thrive. Patient was on Methadone and then removed from methadone and placed on Banquete 5/325mg Q4 Hours PRN and sometimes received Morphine. RN spoke to Dr Brown who ordered Banquete 5/325 Q 6 Hours. RN gave patient her Banquete when she went back to bed after going to . Continue to monitor.
--- NOTE | 2022-01-13 13:05 | NUR ---
Patient had come up to the nurses station with her cane and her blanket and sheet and was attempting to place it on the counter. Patient stated she is trying to cover up the hole that RN looks at her through. RN asked patient to go back to her room. Patient stated. "I'm going beat the fucking shit out of you." RN called for back up and patient had to be placed back in bed. Continue to monitor.
[2022-01-13] MEDS ORDERED: QUEtiapine 25mg tablet PO ONE (13:25)
--- NOTE | 2022-01-13 16:05 | NUR ---
Patient cussing nonstop at staff. Using perverse language at staff. Patient will not stop when asked. Continue to monitor.
[2022-01-13] MEDS ORDERED: ziprasidone IM 20mg inj **IM only IM ONE (17:05)
--- NOTE | 2022-01-13 17:05 | NUR ---
RN gave patient her can back so she could go to the BR. Patient started wacking her mattress with the cane and RN and Tech had to pry it away from her. Patient continues her nonstop tirade. RN received and order for I.MSilverio Hyde which she got upstairs. RN will place patient on a monitor. Continue to monitor.
--- NOTE | 2022-01-13 19:31 | NUR ---
Patient now lyingh in bed. Pt previously trying to get up and hit staff.
--- NOTE | 2022-01-13 20:35 | NUR ---
Patient in bed lying down quietly. Leads attached to patient w/o to much duress. P-65, R-20.
--- NOTE | 2022-01-13 22:31 | NUR ---
Patient lying on back seemingly asleep. P-67, R-25.
--- NOTE | 2022-01-14 00:31 | NUR ---
Patient appears to be sleeping. P-71, R-28
[2022-01-14] MEDS: HYDROcodone/acetaminophen 5mg/325mg tablet PO PRN (01:58)
--- NOTE | 2022-01-14 02:04 | NUR ---
Kaylyn twoke up and yelled for crackeers. Pt brought crackers and string cheese. Pt then got up and tried to walk to restroom alone, pt brought safely to restroom with the aide of tech and nurse. Patient then states she is in pain, pt brought a PRN [place]. Pt now in bed lying down quietly.
[2022-01-14] MEDS ORDERED: diphenhydrAMINE 50 mg/ml inj ONE (02:44)
[2022-01-14] MEDS ORDERED: haloperidol lactate 5mg/ml inj IM ONE ×2 (02:45)
[2022-01-14] MEDS ORDERED: diphenhydrAMINE 50 mg/ml inj IM ONE ×2 (02:45)
[2022-01-14] MEDS ORDERED: LORazepam 2 mg/ml vial IM ONE ×2 (02:45)
--- NOTE | 2022-01-14 03:19 | NUR ---
Patient attempted to get up out of bed w/o help from tech. Patient began yelling and hitting when staff ran to side pt to a sitting position. Patient attempted to take nurses thumb and twist back. Security was called to help deescalate pt and provide an opportunity for the nurse to talk to a Dr and grab medications. Nurse and security arrived on unit. 5mg Haldol, 50mg Benaryl, 2mg Ativan IM injection given to pt. Patient continues to be resistant to care.
--- NOTE | 2022-01-14 03:56 | NUR ---
Patient continues to yell profanities at staff, yelling "concaine, cocaine." Repoted from security she exposed her genitals and told security to look at her clitoris.Patients pants were pulled up and patient put back in bed. Will continue to monitor.
--- NOTE | 2022-01-14 05:56 | NUR ---
Patient is asleep. No new occurances to report.
--- NOTE | 2022-01-14 06:49 | NUR ---
Patient sleeping/snoring. Oxygen sat 93% on room air. RN covered patient with blanket. Continue to monitor.
[2022-01-14] MEDS: pantoprazole 40mg Tablet.DR PO SCH (07:30)
[2022-01-14] MEDS: furosemide 20MG tablet PO SCH (08:00)
[2022-01-14] MEDS: lisinopril 10 MG tablet PO SCH (08:00)
[2022-01-14] MEDS: montelukast 10mg tablet PO SCH (08:00)
--- NOTE | 2022-01-14 08:20 | NUR ---
Patient is still sleeping and no distress observed. Continue to monitor.
--- NOTE | 2022-01-14 08:21 | NUR ---
RN spoke to Anai, Radioactivity Technician, who stated patient is being conserved LPS though in the chart patient has application for Probate conservatorship. Anai states patient has schizophrenia and Bipolar d/o.
--- NOTE | 2022-01-14 10:25 | NUR ---
Patient continues to sleep. Skin is warm and dry. No distress observed. Continue to monitor.
--- NOTE | 2022-01-14 12:15 | NUR ---
Patient eating. Continue to monitor.
--- NOTE | 2022-01-14 12:41 | NUR ---
Patient ate some of her lunch and drank a good amount of water. No distress observed. Continue to monitor.
--- NOTE | 2022-01-14 14:33 | NUR ---
Patient up to BR and needed assistance to find the BR. Patient got agitated for a minute and after using the BR went back to bed. Continue to monitor.
--- NOTE | 2022-01-14 16:11 | NUR ---
Patient asleep supine in her bed. No distress observed. Continue to monitor.
--- NOTE | 2022-01-14 16:56 | NUR ---
Patient is sitting up in bed just know. No distress observed. Continue to monitor.
--- NOTE | 2022-01-14 18:43 | NUR ---
Assumed care of patient that is sleeping. No distress noted.
--- NOTE | 2022-01-14 21:42 | NUR ---
Patient continues to sleep in supine position. Breathing is even and unlabored. No s/sx of distress.
--- NOTE | 2022-01-14 23:29 | NUR ---
Patient sleeping on her right side. Breathing unlabored. No s/sx of distress.
--- NOTE | 2022-01-15 00:33 | NUR ---
Patient continues sleeping on her right side. Breathing unlabored. No s/sx of distress.
--- NOTE | 2022-01-15 03:55 | NUR ---
Patient appears to be sleeping. No distress noted.
--- NOTE | 2022-01-15 05:39 | NUR ---
Patient appears to be sleeping. No distress noted.
--- NOTE | 2022-01-15 06:15 | NUR ---
Patient laying on left side. No distress observed. Continue to monitor.
[2022-01-15] MEDS: furosemide 20MG tablet PO SCH (08:03)
[2022-01-15] MEDS: pantoprazole 40mg Tablet.DR PO SCH (08:03)
[2022-01-15] MEDS: montelukast 10mg tablet PO SCH (08:03)
[2022-01-15] MEDS: lisinopril 10 MG tablet PO SCH (08:04)
[2022-01-15] MEDS: HYDROcodone/acetaminophen 5mg/325mg tablet PO PRN ×2 (08:05→20:42)
--- NOTE | 2022-01-15 08:07 | NUR ---
Patient laying supine with her eyes open. RN sat patient up and patient took her medication. RN oriented patient to breakfast, buttered and jellied her toast, put cream and sugar in her coffee and put sugar in her cream of wheat. Patient eating breakfast. Continue to monitor.
--- NOTE | 2022-01-15 10:12 | NUR ---
Patient sleeping on left side. No distress observed. Continue to monitor.
--- NOTE | 2022-01-15 12:04 | NUR ---
RN awoke patient. Patient sat up on her own. RN offered to take patient to BR but patient refused. RN oriented patient to food. Patient is eating. No distress observed. Continue to monitor.
--- NOTE | 2022-01-15 13:50 | NUR ---
Patient taken to the bathroom, clothes changed and fresh linen placed on bed. Patient was calm and cooperative. Continue to monitor.
--- NOTE | 2022-01-15 14:19 | NUR ---
Patient sleeping supine. No distress observed. Continue to monitor.
--- NOTE | 2022-01-15 16:05 | NUR ---
Patient laying in bed supine. No distress observed. Continue to monitor.
--- NOTE | 2022-01-15 17:50 | NUR ---
Patient sitting up in bed. No distress observed. Continue to monitor.
--- NOTE | 2022-01-15 20:37 | NUR ---
Pt lying supine in bed with eyes closed. Awakens to voice. Denies any needs at this time. Appears in no acute distress. Bed in lowest position.
--- NOTE | 2022-01-15 22:03 | NUR ---
Pt awake and lying supine. Respirations 16. Denies any needs at this time. No acute distress noted.
--- NOTE | 2022-01-16 00:04 | NUR ---
Pt lying in bed turned right laterally with eyes closed. Respirations 15. Pt appears in no acute distress. Bed in lowest position.
--- NOTE | 2022-01-16 02:02 | NUR ---
Pt sitting up in bed with eyes open. Pt denies any needs at this time. Pt appears in no acute distress.
[2022-01-16] MEDS: HYDROcodone/acetaminophen 5mg/325mg tablet PO PRN ×2 (02:46→14:06)
--- NOTE | 2022-01-16 04:06 | NUR ---
Pt sitting up in bed with eyes open. RN assisted pt to bathroom. Respirations 16. Pt in no acute distress.
--- NOTE | 2022-01-16 06:30 | NUR ---
Assumed care of pt. Pt sleeping in supine position. No distress noted.
--- NOTE | 2022-01-16 08:22 | NUR ---
Pt sitting up for breakfast. Pt ate her meal, drank coffee and took her pills. She is currently drinking coffee sitting up. No complaints at this time.
[2022-01-16] MEDS: montelukast 10mg tablet PO SCH (09:02)
[2022-01-16] MEDS: furosemide 20MG tablet PO SCH (09:02)
[2022-01-16] MEDS: lisinopril 10 MG tablet PO SCH (09:04)
[2022-01-16] MEDS: clonazePAM 1mg tablet PO PRN ×2 (09:22→17:47)
[2022-01-16] MEDS: ibuprofen tablet 400 MG TABLET PO PRN (09:22)
[2022-01-16] MEDS: pantoprazole 40mg Tablet.DR PO SCH (09:22)
--- NOTE | 2022-01-16 09:30 | NUR ---
Pt is irritable and agitated. Pt given Motrin and Clonazepam. Pt is now resting with her eyes closed.
--- NOTE | 2022-01-16 09:55 | NUR ---
Left messages with social workers Mary [phone] and Anai [phone] regarding the need for safety planning, placement, and discharge.
--- NOTE | 2022-01-16 11:26 | NUR ---
Pt supine. RR even and unlabored. Will continue to monitor.
--- NOTE | 2022-01-16 13:06 | NUR ---
Pt resting supine with her knees bent. She ate her lunch and fell right back to sleep. Pt has been calm and cooperative on the unit today. Will continue to monitor.
--- NOTE | 2022-01-16 14:01 | NUR ---
pt got up, asked for pain medication.
--- NOTE | 2022-01-16 14:58 | NUR ---
Pt continues to sleep. She was up and was assisted to the BR. She is now resting calmly. RR even and unlabored. RR even and unlabored.
--- NOTE | 2022-01-16 16:25 | NUR ---
Pt is sitting on her bed talking to herself. Pt given a cup of coffee and smiled then said, "thank you." Will continue to monitor her.
--- NOTE | 2022-01-16 18:24 | NUR ---
Pt resting on her bed. Report off to RADHA Red
--- NOTE | 2022-01-16 19:00 | NUR ---
Assisted pt to restroom, pleasant mood. No signs of distress. Back to bed sleeping. Assessment completed and patient has no complaints at this time.
[2022-01-16] MEDS ORDERED: LORazepam 2 mg/ml vial IM STA (19:52)
[2022-01-16] MEDS ORDERED: haloperidol lactate 5mg/ml inj IM STA (19:52)
[2022-01-16] MEDS ORDERED: diphenhydrAMINE 50 mg/ml inj IM STA (19:52)
[2022-01-16] MEDS ORDERED: haloperidol lactate 5mg/ml inj ONE (20:01)
--- NOTE | 2022-01-16 20:15 | NUR ---
Pt very agitated, yelling and kicking bedside table, states she is hearing voices. Redirection failed, attempted to distract pt without success. Medication orders received from ED physician.
--- NOTE | 2022-01-16 21:02 | NUR ---
Pt asleep in bed, respirations unlabored, no s/s of distress.
--- NOTE | 2022-01-16 21:58 | NUR ---
The patient appears to be sleeping
--- NOTE | 2022-01-17 | NUR ---
The patient has been awake off and on. She is hostile and irritable at times.
--- NOTE | 2022-01-17 01:12 | NUR ---
THe patient appears to be sleeping
--- NOTE | 2022-01-17 02:38 | NUR ---
The patient appears to be sleeping
--- NOTE | 2022-01-17 03:55 | NUR ---
The patient appears to be sleeping
--- NOTE | 2022-01-17 05:01 | NUR ---
THe patient appears to be sleeping
[2022-01-17] MEDS: pantoprazole 40mg Tablet.DR PO SCH (07:30)
--- NOTE | 2022-01-17 07:35 | NUR ---
Assumed care from RADHA Red. Pt recieved IM medication last night she appears sleeping w/o distress. RR even and unlabored. Will continue to monitor.
--- NOTE | 2022-01-17 07:36 | NUR ---
Pt appears to be sleeping. RR even and unlabored. Will continue to monitor.
--- NOTE | 2022-01-17 08:00 | NUR ---
Unable to wake pt for her medicine or her meal. Will allow her to sleep until she wakes on her own. Pt recieved IM medications last night. RR even and unlabored. No distress noted.
[2022-01-17] MEDS: furosemide 20MG tablet PO SCH (09:34)
[2022-01-17] MEDS: montelukast 10mg tablet PO SCH (09:35)
[2022-01-17] MEDS: lisinopril 10 MG tablet PO SCH (09:35)
--- NOTE | 2022-01-17 09:35 | NUR ---
Pt up to BR. Pt requires assitance DT being legally thuan. Pt's sheets changed. Pt assisted back to bed and given her breakfast and medications. Pt is now sitting up at the side of the bed eating her breakfast. She is quiet and cooperative.
[2022-01-17] MEDS: HYDROcodone/acetaminophen 5mg/325mg tablet PO PRN (10:24)
[2022-01-17] MEDS: clonazePAM 1mg tablet PO PRN (10:24)
--- NOTE | 2022-01-17 10:52 | NUR ---
Pt appears to be sleeping. RR even and unlabored. Will continue to monitor.
--- NOTE | 2022-01-17 12:44 | NUR ---
Pt continues to sleep. VS completed and placed in the chart. RR 28. Will continue to monitor.
--- NOTE | 2022-01-17 14:39 | NUR ---
Pt assisted to the BR then back to her bed per her request. Pt requesting coffee. Coffe being brewed. Will continue to monitor.
--- NOTE | 2022-01-17 15:04 | NUR ---
Pt supine. RR 20 even and unlabored. Will continue to monitor.
--- NOTE | 2022-01-17 16:48 | NUR ---
Attempt made to assist pt with clean clothing and a bed bath. Pt yelled stating, "these are clean I can see better than you think." Continued to prompt and encourage pt to clean up and put on clean clothing. She just got angry. She is now resting on her side with her eyes closed. She appears to be sleeping. Will continue to monitor.
--- NOTE | 2022-01-17 18:55 | NUR ---
Pt sitting up eating her dinner. She remains confused and somewhat disoriented. Pt is quiet and does not engage in conversation with staff. Will continue to monitor.
--- NOTE | 2022-01-17 20:08 | NUR ---
Pt resting supine. She appears to be sleeping. Will continue to monitor.
--- NOTE | 2022-01-17 20:35 | NUR ---
Pt resting on her back. She appears to be sleeping. Will continue to monitor.
[2022-01-17] MEDS: OLANZapine 2.5MG tablet PO SCH (20:58)
--- NOTE | 2022-01-17 23:00 | NUR ---
Pt sleeping in bed in no apparent distress. Pt up x 1 to the bathroom. No complaints.
[2022-01-18] MEDS: clonazePAM 1mg tablet PO PRN ×2 (00:41→10:03)
--- NOTE | 2022-01-18 01:00 | NUR ---
Pt awoke requesting medicine around 1245. Pt given klonopin.
[2022-01-18] MEDS: HYDROcodone/acetaminophen 5mg/325mg tablet PO PRN ×3 (03:05→20:38)
--- NOTE | 2022-01-18 03:05 | NUR ---
Pt awoke for the bathroom and after ambulating to bathroom and back, asked for her norco for "all over body pain". Hysham given.
--- NOTE | 2022-01-18 05:00 | NUR ---
Pt fell back to sleep after receiving norco and remains asleep in no apparent distress.
--- NOTE | 2022-01-18 07:00 | NUR ---
Pt appears to be sleeping comfortably, no restless movements. Audible breath sounds, rise and fall of chest noted.
[2022-01-18] MEDS: montelukast 10mg tablet PO SCH (08:35)
[2022-01-18] MEDS: pantoprazole 40mg Tablet.DR PO SCH (08:35)
[2022-01-18] MEDS: furosemide 20MG tablet PO SCH (08:35)
[2022-01-18] MEDS: lisinopril 10 MG tablet PO SCH (08:36)
--- NOTE | 2022-01-18 09:00 | NUR ---
Pt awake eating breakfast. Pt compliant with medication and care. Pt denies all psychotic symptoms. Pt presents a little sedated. Pt able to make needs known. Pt requires some assistance as she is legally blind.
--- NOTE | 2022-01-18 10:58 | NUR ---
Pt up to the bathroom with assistance. Gait weak and unsteady.
--- NOTE | 2022-01-18 11:58 | NUR ---
in view of RN,respirations regular, we will monitor.
[2022-01-18] MEDS: lactose-reduced food (Ensure Enlive) - 237ml bottle PO SCH ×3 (12:37→18:26)
--- NOTE | 2022-01-18 13:06 | NUR ---
Patient resting comfortably, visible chest rise and fall. No distress.
--- NOTE | 2022-01-18 15:25 | NUR ---
Pt resting comfortably, visible rise and fall of chest. Respirations even and unlabored.
[2022-01-18] MEDS: gabapentin 100mg capsule PO SCH (16:15)
--- NOTE | 2022-01-18 17:04 | NUR ---
Pt resting comfortably, rise and fall of chest noted. Respirations even and unlabored.
--- NOTE | 2022-01-18 18:50 | NUR ---
Pt was assisted to the bathroom and c/o "having a kidney infection," but then said "I had one when I was younger." Recevied order from Dr. Andersen for U/A. Pt's vitals are WNL. Will continue to monitor pt.
--- NOTE | 2022-01-18 18:54 | NUR ---
Talked with Dr. Andersen about pt overall health and last diagnosis of failure to thrive.
[2022-01-18] MEDS: OLANZapine 2.5MG tablet PO SCH (20:38)
--- NOTE | 2022-01-18 20:46 | NUR ---
PASSED MEDICATIONS TO PT. ASSISTED PT IN BED TO GET MORE COMFORTABLE. PT LEFT RESTING QUITELY AND FALLING ASLEEP.
--- NOTE | 2022-01-18 22:40 | NUR ---
PT SLEEPING PEACEFULLY IN BED. CHEST RISE AND FALL VISUALIZED. NO NEEDS OR CONCERNS AT THIS TIME.
--- NOTE | 2022-01-19 00:56 | NUR ---
PT IS SLEEPING PEACEFULLY IN BED. CHEST RISE AND FALL CONFIRMED. PT PINK AND INTACT. NO CONCERNS AT THIS TIME.
[2022-01-19] MEDS: clonazePAM 1mg tablet PO PRN ×2 (01:01→22:48)
[2022-01-19] MEDS: gabapentin 100mg capsule PO SCH ×4 (01:01→23:08)
--- NOTE | 2022-01-19 02:34 | NUR ---
ASSISTED PT TO GET A DRINK OF WATER. PT VERBALIZED NEEDING NOTHING AT THIS TIME. PT PROCEEDED TO GO BACK TO SLEEP. PT PINK AND BREATHING FINE.
--- NOTE | 2022-01-19 04:49 | NUR ---
PT SLEEPING QUIETLY. CHEST RISE AND FALL OBSERVED.
--- NOTE | 2022-01-19 06:32 | NUR ---
Assumed care from [facility] nurse Ferraro. Pt sleeing in low fowlers position. Audible breath sounds noted, respirations even and unlabored.
--- NOTE | 2022-01-19 07:38 | NUR ---
Spoke with Dr. Garza regarding pt's decreased blood pressure trend. Pt had recent failure to thrive diagnosis, as she was on medical unit for two months prior to AMA then returning to hospital less then 24 hours later. Pt's current vitals are stable, pt has no complaints. Waiting pending urine sample as pt c/o "I have a kidney infection," but no other complaints.
[2022-01-19] MEDS: furosemide 20MG tablet PO SCH (08:00)
[2022-01-19] MEDS: montelukast 10mg tablet PO SCH (08:04)
[2022-01-19] MEDS: lactose-reduced food (Ensure Enlive) - 237ml bottle PO SCH ×3 (08:05→18:04)
[2022-01-19] MEDS: pantoprazole 40mg Tablet.DR PO SCH (08:05)
[2022-01-19] MEDS: lisinopril 10 MG tablet PO SCH (08:12)
--- NOTE | 2022-01-19 08:25 | NUR ---
HELD PT'S AM LASIX AND LISNIPRIL R/T BP NOT IN PERIMETERS. DOCTOR NOTIFIED.
--- NOTE | 2022-01-19 08:30 | NUR ---
Patient was compliant with medication. Pt sitting on side of bed eating breakfast. Pt requires assistance as she is legally blind. No distress noted.
--- NOTE | 2022-01-19 09:10 | NUR ---
Dr. López evaluated patient. Ordered PT consult, hold benzo and [place] for today. Pt ambulated with cane and 1PA. Ordered Tylenol 650 mg q6h for pain. Will continue to monitor fluid intake.
[2022-01-19] MEDS: ibuprofen tablet 400 MG TABLET PO PRN (09:34)
--- NOTE | 2022-01-19 09:35 | NUR ---
Administered Motrin 400mg for generalized pain. Pt took without issue.
--- NOTE | 2022-01-19 09:54 | NUR ---
Pt requested her PRN klonopin when she was told it was being held pt began "what the fuck!" "I take it for nonepileptic seizures bitch!" Pt started a tirade about going to [facility] for a surgery, when told she wasn't going pt stated "you don't know shit!"
--- NOTE | 2022-01-19 09:56 | NUR ---
Pt lying in bed talking about "they used to give me the babies." Pt swearing using profanities, but continues to lie in bed.
--- NOTE | 2022-01-19 10:00 | NUR ---
Pt attempted to get out bed and walk independently. Pt was reminded she needed assitance r/t a weak gait. Pt agreed stating "just forget about it I feel weak." Pt lying in bed talking to herself.
--- NOTE | 2022-01-19 10:34 | NUR ---
Pt appears to be resting quietly. Will continue to monitor.
--- NOTE | 2022-01-19 11:12 | NUR ---
Music Publisher came back from break and told pt continues to lay in bed cursing and yelling. Pt attempts to get out of bed without assistance, but is redirectable. Will continue to monitor for escalation.
--- NOTE | 2022-01-19 11:16 | NUR ---
Pt's benzo and Xavier held r/t to sedation.
--- NOTE | 2022-01-19 11:45 | NUR ---
Pt resting comfortably, noted rise and fall of chest.
--- NOTE | 2022-01-19 12:29 | NUR ---
Pt continues to rest comfortably, no distress noted.
--- NOTE | 2022-01-19 13:15 | NUR ---
Pt awake eating her lunch. Pt continues to perseverate asking for her Klonopin. Pt redirectable.
--- NOTE | 2022-01-19 13:30 | NUR ---
Pt ambulated to bathroom with assist. Urine sample obtained.
[2022-01-19 14:41] LABS: CLARITY,URINE CLEAR (Clear); COLOR,URINE YELLOW (Yellow); GLUCOSE, URINE NEGATIVE (Neg); KETONES,URINE TRACE mg/dl (Neg); LEUKOCYTE ESTERASE ,URINE NEGATIVE (Neg); NITRITES, URINE POSITIVE (Neg); OCCULT BLOOD,URINE NEGATIVE (Neg); PH,URINE 5.5 (4.8-8.0); PROTEIN,URINE NEGATIVE (Neg); UROBILINOGEN,URINE 0.2 E.U/dL (0.2-1.0)
[2022-01-19 14:45] LABS: UA COLLECTION TYPE CLN CATCH MIDSTREAM
[2022-01-19 14:47] LABS: BACTERIA,URINE 3+ /HPF (Neg); MUCUS STRANDS FEW /LPF (Neg); RBC,URINE 0-2 /HPF (0-2); SQUAMOUS EPITHELIAL CELL,UR FEW /LPF (FEW)
[2022-01-19] MEDS: acetaminophen 325mg tablet PO PRN (15:30)
--- NOTE | 2022-01-19 15:33 | NUR ---
Pt lying in her bed "nurse..." "I want my medicine." Pt was administered her 1600 Gabapentin, which seemed to appease her. Randomly yells "I am tired of people telling me I did something to those kids!" "I was born with negativity." Will continue to monitor.
[2022-01-19] MEDS ORDERED: divalproex 250mg tablet, delayed-release PO ONE ×2 (17:25→20:00)
[2022-01-19 17:47] LABS: BASOPHILS % (AUTO) 0.6 % (0-1); EOSINOPHILS # (AUTO) 0.1 X10'3 (0-0.9); EOSINOPHILS % (AUTO) 1.7 % (0-6); HEMATOCRIT 38.9 % (35.0-45.0); LYMPHOCYTES # (AUTO) 1.1 X10'3 (1.1-4.8); LYMPHOCYTES % (AUTO) 17.4 % (21-51); MEAN CORPUSCULAR HEMOGLOBIN 26.5 PG (27.0-31.0); MEAN CORPUSCULAR HGB CONC 33.4 g/dL (33.0-36.5); MEAN CORPUSCULAR VOLUME 79.4 FL (78-98); MONOCYTES # (AUTO) 0.7 X10'3 (0-0.9); MONOCYTES % (AUTO) 10.8 % (2-12); NEUTROPHILS # (AUTO) 4.4 X10'3 (1.8-7.7); NEUTROPHILS % (AUTO) 69.5 % (42-75); PLATELET COUNT 204 X10'3 (140-440); RED BLOOD COUNT 4.89 X10'6 (4.20-5.60); RED CELL DISTRIBUTION WIDTH 14.4 % (11.5-14.5); WHITE BLOOD COUNT 6.3 X10'3 (4.5-11.0)
[2022-01-19 17:56] LABS: ALANINE AMINOTRANSFERASE 32 U/L (12-78); ALBUMIN/GLOBULIN RATIO 0.9 (1.1-1.5); ALKALINE PHOSPHATASE 126 IU/L (46-116); ANION GAP 7 (8-16); ASPARTATE AMINO TRANSFERASE 30 U/L (10-37); BILIRUBIN,TOTAL 0.3 MG/DL (0.1-1.0); BLOOD UREA NITROGEN 44 MG/DL (7-18); BUN/CREATININE RATIO 52.4 (6.6-38.0); CALCIUM 8.5 MG/DL (8.5-10.1); CHLORIDE 104 MMOL/L (99-107); CREATININE 0.84 MG/DL (0.40-0.90); GLUCOSE 107 MG/DL (70-104); POTASSIUM 4.7 MMOL/L (3.5-5.1); SODIUM 139 MMOL/L (135-145); TOTAL CARBON DIOXIDE 27.8 MMOL/L (24-32); TOTAL PROTEIN 6.2 G/DL (6.4-8.2); eGFR 68 ML/MIN
--- NOTE | 2022-01-19 18:41 | NUR ---
Patient laying in bed with eyes closed; no apparent distress observed. Self repositioning.
[2022-01-19] MEDS ORDERED: cephalexin 250mg capsule PO ONE (20:00)
[2022-01-19] MEDS: OLANZapine 2.5MG tablet PO SCH (20:11)
[2022-01-19] MEDS: cephalexin 500mg capsule PO SCH (20:11)
[2022-01-19] MEDS: lactobacillus rhamnosus 10,000 MMU CELLS/CAPSULE PO SCH (20:11)
--- NOTE | 2022-01-19 20:39 | NUR ---
Patient appears to be sleeping; no apparent distress observed and self repositioning. She was pleasant and cooperative with medication.
--- NOTE | 2022-01-19 23:12 | NUR ---
Patient laying in bed quietly; appears restless at this time. Patient had an incontinent episode of diahrrea; cleaned up with PCT help and sweats provided. She c/o increased anxiety and PRN Clonazepam provided.
--- NOTE | 2022-01-19 23:46 | NUR ---
Patient appears agitated; doctor notified and will visit with patient. Curing Room Supervisor got back ER OF and she bvegan yelling about the school doing her child wrong and talking about [employer] mistreating her. Patient attempted to walk away from her bed, unsteady on her feet, but not allowing staff to help her.
[2022-01-19] MEDS: HYDROcodone/acetaminophen 5mg/325mg tablet PO PRN (23:55)
--- NOTE | 2022-01-20 00:32 | NUR ---
Patient continues to respond to IS; Dr. Brown has not been able to visit at bedside yet.
--- NOTE | 2022-01-20 00:42 | NUR ---
Patient threw her ring toward staff; ring placed in bag/labeld and will be placed with her belongings.
--- NOTE | 2022-01-20 01:57 | NUR ---
Patient appears to be settling down; laying in bed quietly.
--- NOTE | 2022-01-20 04:05 | NUR ---
Patient sleeping; no apparent distress observed and self repositioning.
[2022-01-20] MEDS: lactose-reduced food (Ensure Enlive) - 237ml bottle PO SCH ×3 (08:32→18:23)
[2022-01-20] MEDS: cephalexin 500mg capsule PO SCH ×2 (08:33→20:13)
[2022-01-20] MEDS: montelukast 10mg tablet PO SCH (08:33)
[2022-01-20] MEDS: gabapentin 100mg capsule PO SCH ×2 (08:33→16:07)
[2022-01-20] MEDS: furosemide 20MG tablet PO SCH (08:33)
[2022-01-20] MEDS: lactobacillus rhamnosus 10,000 MMU CELLS/CAPSULE PO SCH ×2 (08:33→20:14)
[2022-01-20] MEDS: pantoprazole 40mg Tablet.DR PO SCH (08:35)
[2022-01-20] MEDS: lisinopril 10 MG tablet PO SCH (08:37)
[2022-01-20] MEDS: HYDROcodone/acetaminophen 5mg/325mg tablet PO PRN (17:25)
--- NOTE | 2022-01-20 18:37 | NUR ---
Patient eating dinner at bedside; pleasant and cooperative. No apparent distress observed.
[2022-01-20] MEDS: OLANZapine 2.5MG tablet PO SCH (20:14)
[2022-01-20] MEDS: clonazePAM 1mg tablet PO PRN (20:14)
--- NOTE | 2022-01-20 22:00 | NUR ---
Patient sleeping; no apparent distress observed and self repositioning.
--- NOTE | 2022-01-21 01:25 | NUR ---
Patient up to the restroom with staff assist. Pleasant and cooperative; no apparent distress observed.
--- NOTE | 2022-01-21 03:25 | NUR ---
Patient sleeping; no apparent distress. Chest rise and fall observed.
--- NOTE | 2022-01-21 05:44 | NUR ---
Patient remains asleep; no apparent distress and self repositioned.
--- NOTE | 2022-01-21 06:38 | NUR ---
Patient sitting up on the side of her bed. No distress observed. Continue to monitor.
--- NOTE | 2022-01-21 08:10 | NUR ---
Patient eating breakfast. No distress observed. Continue to monitor.
[2022-01-21] MEDS: gabapentin 100mg capsule PO SCH ×3 (08:23→16:06)
[2022-01-21] MEDS: lactobacillus rhamnosus 10,000 MMU CELLS/CAPSULE PO SCH ×2 (08:23→20:34)
[2022-01-21] MEDS: montelukast 10mg tablet PO SCH (08:23)
[2022-01-21] MEDS: furosemide 20MG tablet PO SCH (08:23)
[2022-01-21] MEDS: cephalexin 500mg capsule PO SCH ×2 (08:23→20:34)
[2022-01-21] MEDS: pantoprazole 40mg Tablet.DR PO SCH (08:23)
[2022-01-21] MEDS: lisinopril 10 MG tablet PO SCH (08:24)
[2022-01-21] MEDS: lactose-reduced food (Ensure Enlive) - 237ml bottle PO SCH ×3 (08:55→18:00)
[2022-01-21] MEDS: HYDROcodone/acetaminophen 5mg/325mg tablet PO PRN ×2 (09:01→16:05)
[2022-01-21] MEDS: ibuprofen tablet 400 MG TABLET PO PRN (09:01)
--- NOTE | 2022-01-21 10:03 | NUR ---
Patient sleeping supine. No distress observed. Continue to monitor.
--- NOTE | 2022-01-21 12:03 | NUR ---
Patient eating lunch. No distress observed. Continue to monitor.
--- NOTE | 2022-01-21 14:03 | NUR ---
Patient ambulatory to with assistance of Anna Pappas. No distress observed. Continue to monitor.
--- NOTE | 2022-01-21 16:11 | NUR ---
Patient took pain medication. Patient c/o 6/ generalized pain. Continue to monitor.
[2022-01-21] MEDS: OLANZapine 2.5MG tablet PO SCH (20:34)
[2022-01-21] MEDS: clonazePAM 1mg tablet PO PRN (20:41)
--- NOTE | 2022-01-21 21:55 | NUR ---
Pt sleeping at this time. Pt had two episodes of yelling obscenities at staff, triggered by wanting her walking stick. Pt uncooperative with assessment did take all medications and requested PRN Klonipin.
[2022-01-22] MEDS: HYDROcodone/acetaminophen 5mg/325mg tablet PO PRN ×4 (00:12→21:51)
[2022-01-22] MEDS: gabapentin 100mg capsule PO SCH ×4 (00:12→20:17)
--- NOTE | 2022-01-22 00:17 | NUR ---
Pt woke up briefly up to BR with minimal assist. Took routine Neurontin and requested PRN [place] and went back to sleep.
--- NOTE | 2022-01-22 02:17 | NUR ---
Pt laying in bed quietly at this time. Was sitting up eating a snack.
--- NOTE | 2022-01-22 06:33 | NUR ---
Patient ambulatory, steady gait to BR with Mable Pappas at her side. No distress observered. Continue to monitor.
[2022-01-22] MEDS: lisinopril 10 MG tablet PO SCH (08:00)
[2022-01-22] MEDS: cephalexin 500mg capsule PO SCH ×2 (08:27→20:17)
[2022-01-22] MEDS: pantoprazole 40mg Tablet.DR PO SCH (08:27)
[2022-01-22] MEDS: montelukast 10mg tablet PO SCH (08:29)
[2022-01-22] MEDS: furosemide 20MG tablet PO SCH (08:29)
[2022-01-22] MEDS: lactobacillus rhamnosus 10,000 MMU CELLS/CAPSULE PO SCH ×2 (08:30→20:17)
[2022-01-22] MEDS: lactose-reduced food (Ensure Enlive) - 237ml bottle PO SCH ×3 (08:31→18:00)
--- NOTE | 2022-01-22 08:45 | NUR ---
Patient eating breakfast. No distress observed. Patient stated she did not need to go to BR at this time. Continue to monitor.
[2022-01-22] MEDS: clonazePAM 1mg tablet PO PRN ×2 (09:50→20:17)
--- NOTE | 2022-01-22 09:50 | NUR ---
Patient was up to the BR and now back in bed. Patient cussing and yelling. Patient wants her Clonazepam. RN got it for patient. Continue to monitor.
--- NOTE | 2022-01-22 11:10 | NUR ---
RN gave patient a snack. Patient calm and in no distress. Continue to monitor.
--- NOTE | 2022-01-22 11:40 | NUR ---
Patient screaming and wanting her [place]. RN advised patient that she got it at 0830 and cannot take another until 1430. Patient contiues to cuss and then calms down. Continue to monitor.
--- NOTE | 2022-01-22 12:19 | NUR ---
Patient eating lunch. No distress observed. continue to monitor.
--- NOTE | 2022-01-22 14:36 | NUR ---
patient assisted to the bathroom and back to bed, 1 person assist using FWW,voided.
--- NOTE | 2022-01-22 15:19 | NUR ---
Patient sleeping supine. No distress observed. Continue to monitor.
--- NOTE | 2022-01-22 17:28 | NUR ---
Patient drinking decaf and sitting at the edge of her bed. No distress observed. Continue to monitor.
--- NOTE | 2022-01-22 19:00 | NUR ---
Patient ate her dinner and was assisted up to use the bathroom with one to one help with staff. Her bed linens were changed. She is irritable and suspicious of staff. She stated the month was december and the year was 2021 and was reoriented to month and date.
[2022-01-22] MEDS: ibuprofen tablet 400 MG TABLET PO PRN (20:17)
[2022-01-22] MEDS: OLANZapine 2.5MG tablet PO SCH (20:17)
--- NOTE | 2022-01-22 20:44 | NUR ---
The patient is resting on her bed and swearing and agitatedly talking to herself. She did take all of her HS medications and was given a prn klonipin for agitation.
--- NOTE | 2022-01-22 22:21 | NUR ---
The patient is talking to people who are not there. She is agitated at times. She was redirected from yelling. She had a very small skin year on the back of her left hand and when asked about it she stated that she had a small piece of glass in her skin. Suspect patient digital media producer the back of her hand with her long finger nails. The area was cleaned and a bandaid was applied
--- NOTE | 2022-01-22 23:18 | NUR ---
The patient appears to be sleeping
--- NOTE | 2022-01-23 00:40 | NUR ---
The patient is resting on her bed but is awake
--- NOTE | 2022-01-23 02:03 | NUR ---
The patient appears to be sleeping
--- NOTE | 2022-01-23 03:09 | NUR ---
The patient has been awake and talking to people who are not there
--- NOTE | 2022-01-23 05:06 | NUR ---
The patient has been awake the majority of the night
--- NOTE | 2022-01-23 06:32 | NUR ---
Assumed care. Patient is resting in bed awake. Makes comments to staff, "Why don't you stop gossiping about me." No s/sx acute distress.
[2022-01-23] MEDS: lactobacillus rhamnosus 10,000 MMU CELLS/CAPSULE PO SCH ×2 (07:51→20:03)
[2022-01-23] MEDS: cephalexin 500mg capsule PO SCH ×2 (07:51→20:03)
[2022-01-23] MEDS: furosemide 20MG tablet PO SCH (07:51)
[2022-01-23] MEDS: pantoprazole 40mg Tablet.DR PO SCH (07:52)
[2022-01-23] MEDS: gabapentin 100mg capsule PO SCH ×3 (07:52→20:03)
[2022-01-23] MEDS: montelukast 10mg tablet PO SCH (07:52)
[2022-01-23] MEDS: lactose-reduced food (Ensure Enlive) - 237ml bottle PO SCH ×3 (07:54→18:28)
[2022-01-23] MEDS: lisinopril 10 MG tablet PO SCH (07:54)
--- NOTE | 2022-01-23 08:47 | NUR ---
Patient eats breakfast, now resting quietly in bed, appears to be sleeping
--- NOTE | 2022-01-23 12:04 | NUR ---
Rehabilitator from [facility] visiting with patient.
--- NOTE | 2022-01-23 12:13 | NUR ---
Patient has a court date for Probate Conservatorship on March 04. Then looking for placement.
--- NOTE | 2022-01-23 13:17 | NUR ---
Pt is resting.
[2022-01-23] MEDS: clonazePAM 1mg tablet PO PRN ×2 (14:02→20:03)
--- NOTE | 2022-01-23 14:44 | NUR ---
PRN Klonopin given per pt request for anxiety which appears effective, patient is resting quietly in bed
--- NOTE | 2022-01-23 17:18 | NUR ---
Patient is resting quietly in bed
--- NOTE | 2022-01-23 18:36 | NUR ---
The patient is sitting up and eating her dinner. She does not appear agitated.
[2022-01-23] MEDS: HYDROcodone/acetaminophen 5mg/325mg tablet PO PRN (18:51)
[2022-01-23] MEDS: OLANZapine 2.5MG tablet PO SCH (20:03)
--- NOTE | 2022-01-23 21:10 | NUR ---
The patient appears to be sleeping
--- NOTE | 2022-01-23 22:51 | NUR ---
The patient awake and sitting on the side of the bed after ambulating to the bathroom
--- NOTE | 2022-01-23 23:20 | NUR ---
The patient appears to be sleeping
--- NOTE | 2022-01-24 01:01 | NUR ---
The patient appears to be sleeping
--- NOTE | 2022-01-24 02:11 | NUR ---
The patient appears to be sleeping
--- NOTE | 2022-01-24 04:27 | NUR ---
The patient appears to be sleeping
--- NOTE | 2022-01-24 05:52 | NUR ---
The patient appeared to have slept well throughout the night. She was not agitated. She was polite
--- NOTE | 2022-01-24 06:31 | NUR ---
Received report from RADHA Red. Pt quietly sitting on side of bed.
[2022-01-24] MEDS: lisinopril 10 MG tablet PO SCH (08:00)
[2022-01-24] MEDS: furosemide 20MG tablet PO SCH (08:00)
[2022-01-24] MEDS: lactose-reduced food (Ensure Enlive) - 237ml bottle PO SCH ×3 (08:24→17:57)
[2022-01-24] MEDS: montelukast 10mg tablet PO SCH (08:32)
[2022-01-24] MEDS: gabapentin 100mg capsule PO SCH ×3 (08:32→19:38)
[2022-01-24] MEDS: lactobacillus rhamnosus 10,000 MMU CELLS/CAPSULE PO SCH ×2 (08:32→19:38)
[2022-01-24] MEDS: pantoprazole 40mg Tablet.DR PO SCH (08:33)
--- NOTE | 2022-01-24 08:33 | NUR ---
Pt siting up eating breakfast. Pt was compliant with care and medication. Pt seems less agiated then previous shifts. Pt has no complaints at this time and is able to make needs known. Addendum: 01/24/22 at 0919 by ANGELICA HELD LASIX AND LISINIPRIL R/T DECREASED BLOOD PRESSURE.
--- NOTE | 2022-01-24 10:30 | NUR ---
Pt lying in mid fowlers position. Respirations even and unlabored. Audible breath noted.
[2022-01-24] MEDS: clonazePAM 1mg tablet PO PRN ×2 (12:27→19:39)
--- NOTE | 2022-01-24 12:46 | NUR ---
Patient walked to the restroom, when attempting to sit on the toilet slipped caught herself on the handrail and toilet and sat on the floor, assessed patient no c/o pain assisted back up to toilet once finished then walked to patients room.
--- NOTE | 2022-01-24 12:50 | NUR ---
Pt sitting on side of bed eating her lunch. No distress noted.
--- NOTE | 2022-01-24 13:00 | NUR ---
Pt had an incontinent stool episode. Pt was cleaned and clothing and linens changed. Stool was soft, not liquid. Addendum: 01/24/22 at 1437 by ANGELICA NO SKIN IMPAIRMENT NOTED ON GLUTEAL OR COCCYX AREA
--- NOTE | 2022-01-24 15:01 | NUR ---
Pt is resting comfortably, respirations even and unlabored.
[2022-01-24] MEDS: ibuprofen tablet 400 MG TABLET PO PRN (15:33)
--- NOTE | 2022-01-24 15:36 | NUR ---
Pt woke requesting her [place]. Pt presents sedated. PRN Motrin was administered. Will continue to monitor.
--- NOTE | 2022-01-24 16:12 | NUR ---
Pt resting comfortably, respirations even and unlabored. PRN Motrin was effective.
--- NOTE | 2022-01-24 17:17 | NUR ---
Patient resting comfortably, noted rise and fall of chest. Respirations even and unlabored.
--- NOTE | 2022-01-24 18:13 | NUR ---
TECH ATTEMPTED TO TAKE VITALS ON PT, PT REFUSED AND STATED "NO I'M EATING DINNER RIGHT NOW'. TECH INFORMED ONCOMING NIGHT RN VITALS WERE NOT DONE ON PT PER PT REQUEST TO TECH THAT THEY DO NOT TAKE THEM WHILE PT EATS.
--- NOTE | 2022-01-24 19:00 | NUR ---
Patient had episode of agitation but quickly calmed down on her own.
[2022-01-24] MEDS: HYDROcodone/acetaminophen 5mg/325mg tablet PO PRN (19:38)
[2022-01-24] MEDS: OLANZapine 2.5MG tablet PO SCH (19:39)
--- NOTE | 2022-01-24 20:01 | NUR ---
The patient stated that she feels very anxious. She requested and received klonopin. She had a brief conflict with female peer which she does not seem to remember at this time. She was given an HS snack and she had her evening medications early.
--- NOTE | 2022-01-24 20:47 | NUR ---
The patient is resting on her bed and appears to be awake.
--- NOTE | 2022-01-24 21:48 | NUR ---
The patient is awake and having an evening snack
--- NOTE | 2022-01-24 23:52 | NUR ---
The patient is resting on her bed.
[2022-01-25] MEDS: HYDROcodone/acetaminophen 5mg/325mg tablet PO PRN ×4 (00:43→19:57)
--- NOTE | 2022-01-25 00:48 | NUR ---
The patient is awake and complaining of generalized pain and was given norco
--- NOTE | 2022-01-25 02:28 | NUR ---
The patient has been awake. She is demanding and rude
--- NOTE | 2022-01-25 03:35 | NUR ---
The patient appears to be sleeping
--- NOTE | 2022-01-25 05:08 | NUR ---
The patient appears to be asleep
--- NOTE | 2022-01-25 06:30 | NUR ---
Recived pt. sleeping in bed at the beginning of the shift, rr are even and unlabored. HOB is elevated
--- NOTE | 2022-01-25 07:30 | NUR ---
Pt. is awake at this time, laying in bed with eyes closed.
--- NOTE | 2022-01-25 08:00 | NUR ---
Pt. was compliant with all medications and requested PRN [place] for chronic back and leg pain as well as PRN Clonazepam for anxiety. Medications were administered with effectiveness. 1:1 was completed at bedside, pt. is A&O X2 ( to name and month). She states, "I have no idea where I'm at or why I'm here." Pt. denies any S/I, H/I, A/V/CORLEY, and no delusional statements were made. Pt. becomes irritable at times which appears to be related to her inability to see, but she is able to be assisted with ADLs and redirected. No agitated outbursts were exhibited.
[2022-01-25] MEDS: montelukast 10mg tablet PO SCH (08:01)
[2022-01-25] MEDS: lactobacillus rhamnosus 10,000 MMU CELLS/CAPSULE PO SCH ×2 (08:01→19:54)
[2022-01-25] MEDS: clonazePAM 1mg tablet PO PRN ×2 (08:01→16:43)
[2022-01-25] MEDS: gabapentin 100mg capsule PO SCH ×3 (08:01→19:53)
[2022-01-25] MEDS: pantoprazole 40mg Tablet.DR PO SCH (08:02)
[2022-01-25] MEDS: lisinopril 10 MG tablet PO SCH (08:02)
[2022-01-25] MEDS: furosemide 20MG tablet PO SCH (08:02)
[2022-01-25] MEDS: lactose-reduced food (Ensure Enlive) - 237ml bottle PO SCH ×3 (08:06→18:21)
--- NOTE | 2022-01-25 08:31 | NUR ---
Pt. sitting on the edge of the bed eating breakfast at this time. She requires some direction and encouragement.
--- NOTE | 2022-01-25 09:30 | NUR ---
Pt. sleeping in bed at this time, HOB elevated, rr are even and unlabored. Physical therapy came by to work with pt., however she was sleeping after having anxiolytic and pain medication.
--- NOTE | 2022-01-25 10:39 | NUR ---
Pt. continues to sleep at this time with HOB elevated, rise and fall of chest noted.
--- NOTE | 2022-01-25 10:48 | NUR ---
Pt. up to use that bathroom at this time, she is able to ambulate independently with guidance r/t poor eyesight. Pt. is encouraged to use her walker, however is currently refusing stating, "I use a cane."
--- NOTE | 2022-01-25 11:40 | NUR ---
Pt. continues to sleep at this time with HOB elevated, rr are even and unlabored.
--- NOTE | 2022-01-25 11:41 | NUR ---
Migdalia cardona in [facility] - 01/25/22 at 1141 by JOSE ANGEL Pt. sitting up in bed at this time, appears to be resting comfortably.
[2022-01-25] MEDS: ibuprofen tablet 400 MG TABLET PO PRN (12:19)
--- NOTE | 2022-01-25 12:28 | NUR ---
Pt. continues to c/o chronic back and bilateral leg pain and exhibits pain when ambulating. PRN Motrin administered and will continue to monitor.
--- NOTE | 2022-01-25 13:10 | NUR ---
Pt. sat up in bed and became agitated, she yelled out at staff, "I'm going to hit you with a pole!" When approached by staff and asked what was wrong, pt. c/o her lunch which she did not feel was adequate and ongoing pain, PRN Motrin was ineffective. Staff provided active listening to pt. and clear boudaries regarding her behaviors. She remained agitated, however then claimed she had not threatened to hit staff, but was talking about a previous incident that occured to her. Pt. was provided with PRN [place], and lay back down. She sat up a few minutes later demanding her walking stick and continues to refuse to use her FWW. Pt. stated in a delusional manner, "Someone snuck in last night and stole it!" She was able to be redirected
--- NOTE | 2022-01-25 14:56 | NUR ---
Pt. is sleeping at this time, HOB elevated and rr are even and unlabored.
--- NOTE | 2022-01-25 16:09 | NUR ---
Pt. up to use the BR, again requiring assistance from staff r/t generalized weakness. She continuies to use FWW despite encouragement. Fall precautions are in place.
--- NOTE | 2022-01-25 16:47 | NUR ---
Pt. up ambulating at this time without a direction and appeared anxious. She was reoriented by the Tech who asked pt. casually where she was going? Pt. became agitated and stated, "Don't talk to me like that, I'm 66 years old!" She postured towards staff. Pt. was able to be redirected back to bed and PRN Clonazepam was administered.
--- NOTE | 2022-01-25 18:03 | NUR ---
Pt. laying in bed sleeping at this time, rr are even and unlabored.
--- NOTE | 2022-01-25 18:52 | NUR ---
Pt is sitting up in bed eating chips. Pt denies any needs at this time.
--- NOTE | 2022-01-25 19:00 | NUR ---
Pt eats 75% of dinner tray
[2022-01-25] MEDS: OLANZapine 2.5MG tablet PO SCH (19:54)
--- NOTE | 2022-01-25 20:24 | NUR ---
Pt takes HS medicatyion without issue. PT utilizes prn norco for chronic pain.
[2022-01-25] MEDS: acetaminophen 325mg tablet PO PRN (21:46)
--- NOTE | 2022-01-25 22:07 | NUR ---
Pt states she is still in pain and requests tylenol, tylenol given to pt.
--- NOTE | 2022-01-26 00:30 | NUR ---
PT UP TO USE THE RESTROOM, STAFF ENCOURAGES HER TO USE HER WALKER, SHE CURSES AT STAFF AND REFUSES TO USE THE WALKER.
[2022-01-26] MEDS: HYDROcodone/acetaminophen 5mg/325mg tablet PO PRN ×4 (01:51→20:57)
--- NOTE | 2022-01-26 02:13 | NUR ---
PT REQUESTS PRN NORCO FOR PAIN WHICH IS GIVEN TO HER.
[2022-01-26] MEDS: pantoprazole 40mg Tablet.DR PO SCH (07:30)
[2022-01-26] MEDS: furosemide 20MG tablet PO SCH (08:00)
[2022-01-26] MEDS: lisinopril 10 MG tablet PO SCH (08:00)
[2022-01-26] MEDS ORDERED: ALPRAZolam 0.5mg tablet PO ONE (08:00)
[2022-01-26] MEDS: lactobacillus rhamnosus 10,000 MMU CELLS/CAPSULE PO SCH ×2 (08:06→20:21)
[2022-01-26] MEDS: gabapentin 100mg capsule PO SCH ×3 (08:07→20:21)
[2022-01-26] MEDS: montelukast 10mg tablet PO SCH (08:07)
[2022-01-26] MEDS: lactose-reduced food (Ensure Enlive) - 237ml bottle PO SCH ×3 (08:23→18:13)
[2022-01-26] MEDS: clonazePAM 1mg tablet PO PRN ×2 (12:43→20:27)
--- NOTE | 2022-01-26 19:27 | NUR ---
The patient has been quietly resting on her bed. She ate her dinner.
[2022-01-26] MEDS: OLANZapine 2.5MG tablet PO SCH (20:22)
--- NOTE | 2022-01-26 21:10 | NUR ---
The patient appears to be sleeping
--- NOTE | 2022-01-26 23:08 | NUR ---
The patient appears to be sleeping
--- NOTE | 2022-01-27 00:46 | NUR ---
The patient appears to be sleeping
--- NOTE | 2022-01-27 02:19 | NUR ---
The patient appears to be sleeping
--- NOTE | 2022-01-27 04:54 | NUR ---
The patient appears to be sleeping
[2022-01-27] MEDS: HYDROcodone/acetaminophen 5mg/325mg tablet PO PRN ×2 (05:05→18:49)
--- NOTE | 2022-01-27 06:28 | NUR ---
The patient appears to be sleeping
--- NOTE | 2022-01-27 07:23 | NUR ---
The patient appears to be sleeping
[2022-01-27] MEDS: furosemide 20MG tablet PO SCH (08:07)
[2022-01-27] MEDS: montelukast 10mg tablet PO SCH (08:07)
[2022-01-27] MEDS: pantoprazole 40mg Tablet.DR PO SCH (08:07)
[2022-01-27] MEDS: lactobacillus rhamnosus 10,000 MMU CELLS/CAPSULE PO SCH ×2 (08:07→20:20)
[2022-01-27] MEDS: lactose-reduced food (Ensure Enlive) - 237ml bottle PO SCH ×3 (08:07→17:58)
[2022-01-27] MEDS: gabapentin 100mg capsule PO SCH ×3 (08:07→20:20)
[2022-01-27] MEDS: lisinopril 10 MG tablet PO SCH (08:07)
--- NOTE | 2022-01-27 08:33 | NUR ---
The patient is sitting up and eating breakfast
[2022-01-27] MEDS: clonazePAM 1mg tablet PO PRN ×2 (08:51→18:49)
--- NOTE | 2022-01-27 10:51 | NUR ---
THe patient being agitated by female peer and screaming for her to shut up. She did accept redirection.
--- NOTE | 2022-01-27 11:54 | NUR ---
The patient appears to be sleeping
--- NOTE | 2022-01-27 12:27 | NUR ---
The patient is sitting up by her bed and eating her dinner
--- NOTE | 2022-01-27 13:34 | NUR ---
The patient appears to be sleeping
--- NOTE | 2022-01-27 14:28 | NUR ---
The patient appears to be sleeping
--- NOTE | 2022-01-27 15:16 | NUR ---
The patient appears to be napping
--- NOTE | 2022-01-27 17:12 | NUR ---
Thepatient appears to be sleeping
--- NOTE | 2022-01-27 19:03 | NUR ---
Patient up to the BR assisted by staff.
--- NOTE | 2022-01-27 19:03 | NUR ---
The patient appears to be sleeping
[2022-01-27] MEDS: OLANZapine 2.5MG tablet PO SCH (20:21)
--- NOTE | 2022-01-27 22:12 | NUR ---
Patient is asleep in supine position. RR even and unlabored. No s/sx of distress.
--- NOTE | 2022-01-28 00:46 | NUR ---
The patient appears to be asleep on her bed.
[2022-01-28] MEDS: HYDROcodone/acetaminophen 5mg/325mg tablet PO PRN ×2 (02:27→19:13)
--- NOTE | 2022-01-28 04:11 | NUR ---
Patient asleep supine in her bed. No distress observed. Continue to monitor.
--- NOTE | 2022-01-28 07:00 | NUR ---
Pt continues to rest comfortably, respirations even and unlabored.
[2022-01-28] MEDS: lactobacillus rhamnosus 10,000 MMU CELLS/CAPSULE PO SCH ×2 (08:34→19:58)
[2022-01-28] MEDS: gabapentin 100mg capsule PO SCH ×3 (08:35→20:27)
[2022-01-28] MEDS: pantoprazole 40mg Tablet.DR PO SCH (08:35)
[2022-01-28] MEDS: lisinopril 10 MG tablet PO SCH (08:35)
[2022-01-28] MEDS: montelukast 10mg tablet PO SCH (08:35)
[2022-01-28] MEDS: furosemide 20MG tablet PO SCH (08:35)
[2022-01-28] MEDS: lactose-reduced food (Ensure Enlive) - 237ml bottle PO SCH ×3 (08:38→18:04)
--- NOTE | 2022-01-28 09:04 | NUR ---
Pt up to the bathroom with assist. Pt ate 100% of her breakfast.
[2022-01-28] MEDS: ibuprofen tablet 400 MG TABLET PO PRN (09:26)
--- NOTE | 2022-01-28 09:28 | NUR ---
Patient requested pain medication for generalized pain 03/31. Motrin 400mg administered. Will continue to monitor
[2022-01-28] MEDS: clonazePAM 1mg tablet PO PRN ×2 (09:39→21:25)
--- NOTE | 2022-01-28 11:03 | NUR ---
Patient resting comfortaly, respirations even and unlabored.
--- NOTE | 2022-01-28 13:03 | NUR ---
Pt awake sitting on side of bed eating her lunch.
--- NOTE | 2022-01-28 15:05 | NUR ---
Pt yelled from her bed "I need a cigarette!" When promotion writer explained policy, pt mumbled under her breath "bitch."
--- NOTE | 2022-01-28 17:15 | NUR ---
Pt resting comfortably, respirations even and unlabored.
[2022-01-28] MEDS ORDERED: haloperidol lactate 5mg/ml inj ONE (19:29)
[2022-01-28] MEDS ORDERED: haloperidol lactate 5mg/ml inj IM ONE (19:30)
[2022-01-28] MEDS ORDERED: LORazepam 2 mg/ml vial IM ONE (19:30)
[2022-01-28] MEDS ORDERED: diphenhydrAMINE 50 mg/ml inj IM ONE (19:30)
--- NOTE | 2022-01-28 19:38 | NUR ---
Pt sitting up in bed. Agitated and restless. RASS +3. Screaming "fuck you". Neighboring patient screamed "in Reinier name, please be quiet" to which this patient started becoming more agitated.
--- NOTE | 2022-01-28 19:59 | NUR ---
Pt threw water pitcher at RN as RN was walking away. Pt positioned back in bed, bed side table removed from room. Floor cleaned up with towels.
[2022-01-28] MEDS: OLANZapine 2.5MG tablet PO SCH (20:27)
--- NOTE | 2022-01-28 21:01 | NUR ---
Pt lying supine in bed with eyes closed. Bed in lowest position. Respirations 15.
--- NOTE | 2022-01-28 23:07 | NUR ---
Pt lying supine in bed with eyes closed. Respirations 17. Bed in lowest position.
--- NOTE | 2022-01-29 01:03 | NUR ---
Pt lying supine in bed with eyes closed. Respirations 16, pt noted to be snoring. Bed in lowest position.
--- NOTE | 2022-01-29 03:01 | NUR ---
Patient turned to left lateral side with eyes closed, appears to be sleeping. Respirations 14. No distress noted. Bed in lowest position.
--- NOTE | 2022-01-29 05:03 | NUR ---
Pt lying supine in bed and awake, requesting something to drink. RN provided 120ml of orange juice. Pt in no acute distress.
[2022-01-29] MEDS: HYDROcodone/acetaminophen 5mg/325mg tablet PO PRN ×2 (05:38→16:22)
--- NOTE | 2022-01-29 06:45 | NUR ---
pt appears to be sleeping on her back. no s/s acute distress noted. respirations equal and unlabored
[2022-01-29] MEDS: gabapentin 100mg capsule PO SCH ×3 (08:43→20:12)
[2022-01-29] MEDS: montelukast 10mg tablet PO SCH (08:43)
[2022-01-29] MEDS: lactobacillus rhamnosus 10,000 MMU CELLS/CAPSULE PO SCH ×2 (08:43→20:12)
[2022-01-29] MEDS: lisinopril 10 MG tablet PO SCH (08:43)
[2022-01-29] MEDS: furosemide 20MG tablet PO SCH (08:43)
[2022-01-29] MEDS: pantoprazole 40mg Tablet.DR PO SCH (08:43)
[2022-01-29] MEDS: lactose-reduced food (Ensure Enlive) - 237ml bottle PO SCH ×3 (08:44→18:00)
[2022-01-29] MEDS: clonazePAM 1mg tablet PO PRN ×2 (08:47→22:26)
--- NOTE | 2022-01-29 08:51 | NUR ---
pt sitting up in bed eating breakfast. pt took morning medications and requested her klonopin for anxiety. pt calm, cooperative and pleasant during morning assessment. pt continues to await placement due to dementia. pt eating breakfast with minimal assistance and denies any other concerns at this time
--- NOTE | 2022-01-29 16:38 | NUR ---
assisted pt to bathroom and back. large, solid bm noted. pt now sitting on edge of bed eating chips
--- NOTE | 2022-01-29 18:27 | NUR ---
Pt sitting up in bed eating dinner. Denies needs at this time.
[2022-01-29] MEDS: OLANZapine 2.5MG tablet PO SCH (20:12)
--- NOTE | 2022-01-29 20:20 | NUR ---
RN administered patient's PM medications, patient in sitting position and denies further needs. Bed in lowest position.
--- NOTE | 2022-01-29 22:05 | NUR ---
Pt sitting up in bed eating chips. Denies needs at this time. Bed in lowest position.
[2022-01-30] MEDS: HYDROcodone/acetaminophen 5mg/325mg tablet PO PRN (00:07)
--- NOTE | 2022-01-30 00:47 | NUR ---
Pt lying in semi-pate's position in bed with eyes closed, appears to be sleeping. Respirations 15. Bed in lowest position.
--- NOTE | 2022-01-30 02:38 | NUR ---
Pt lying semi-pate's position in bed with eyes closed, appears to be sleeping. Respirations 14. Noted to be snoring. Bed in lowest position.
--- NOTE | 2022-01-30 04:11 | NUR ---
Pt lying in semi-pate's position, appears to be sleeping. Respirations 15.
[2022-01-30] MEDS: pantoprazole 40mg Tablet.DR PO SCH (07:30)
[2022-01-30] MEDS: lisinopril 10 MG tablet PO SCH (08:00)
[2022-01-30] MEDS: furosemide 20MG tablet PO SCH (08:00)
[2022-01-30] MEDS: montelukast 10mg tablet PO SCH (08:44)
[2022-01-30] MEDS: lactose-reduced food (Ensure Enlive) - 237ml bottle PO SCH ×3 (08:44→18:00)
[2022-01-30] MEDS: gabapentin 100mg capsule PO SCH ×3 (08:44→19:12)
[2022-01-30] MEDS: lactobacillus rhamnosus 10,000 MMU CELLS/CAPSULE PO SCH ×2 (08:44→19:12)
[2022-01-30] MEDS: clonazePAM 1mg tablet PO PRN ×2 (08:49→18:45)
[2022-01-30] MEDS: ibuprofen tablet 400 MG TABLET PO PRN (08:49)
[2022-01-30] MEDS: OLANZapine 2.5MG tablet PO SCH (19:13)
--- NOTE | 2022-01-30 19:26 | NUR ---
Pt cooperative, ate 100% of dinner. Assisted pt to the BR, pt took HS medications without any issues. Pt requested Klonopin with evening meds.
--- NOTE | 2022-01-30 21:17 | NUR ---
Assisted pt to the BR, pt yelled "I need my klonopin, you didnt give it to me!" When explained that I had given it to her 2 hours ago she yelled, "no you didnt."
--- NOTE | 2022-01-30 22:02 | NUR ---
Pt lying on her back awake, no distress noted. Requested juice.
[2022-01-30] MEDS ORDERED: OLANZapine 5mg rapidly disint. tablet PO ONE (22:45)
--- NOTE | 2022-01-30 23:04 | NUR ---
Pt yelling "I want a cigarette" when re oriented pt states "I am not at the hospital" Provider ordered 5MG zyprexa.
--- NOTE | 2022-01-31 00:07 | NUR ---
Pt lying on her back resting, no needs at this time.
[2022-01-31] MEDS: HYDROcodone/acetaminophen 5mg/325mg tablet PO PRN ×3 (00:24→18:45)
--- NOTE | 2022-01-31 00:27 | NUR ---
pt calling out "nurse, nurse I need a norco." pt states 07/01 pain generalized.
--- NOTE | 2022-01-31 02:08 | NUR ---
Pt restless this evening with periods of calling out for the nurse with small requests.
--- NOTE | 2022-01-31 04:39 | NUR ---
Assisted pt to the BR, pt is mumbling, self talking non-sensical. Pt is lying down resting on her bed.
--- NOTE | 2022-01-31 07:13 | NUR ---
PT SLEEPING IN BED COMFORTABLE ,RR WNL.
--- NOTE | 2022-01-31 07:56 | NUR ---
PT UP TO USE RESTROOM,ASSISTED BY JOSE EDEN.
--- NOTE | 2022-01-31 08:19 | NUR ---
sitting up at the bedside eating her breakfast.
[2022-01-31] MEDS: lactose-reduced food (Ensure Enlive) - 237ml bottle PO SCH ×3 (08:28→18:16)
[2022-01-31] MEDS: furosemide 20MG tablet PO SCH (08:40)
[2022-01-31] MEDS: pantoprazole 40mg Tablet.DR PO SCH (08:40)
[2022-01-31] MEDS: montelukast 10mg tablet PO SCH (08:40)
[2022-01-31] MEDS: lisinopril 10 MG tablet PO SCH (08:41)
[2022-01-31] MEDS: gabapentin 100mg capsule PO SCH ×3 (08:41→18:46)
[2022-01-31] MEDS: clonazePAM 1mg tablet PO PRN ×2 (08:43→18:45)
--- NOTE | 2022-01-31 09:25 | NUR ---
SLEEPING IN BED QUITELY ,NO SIGN OF DISTRESS NOTED.
--- NOTE | 2022-01-31 10:01 | NUR ---
RESTING IN BED QUIETLY .
--- NOTE | 2022-01-31 13:37 | NUR ---
pt resting in bed quietly no distress noted.
[2022-01-31] MEDS: ibuprofen tablet 400 MG TABLET PO PRN (15:22)
--- NOTE | 2022-01-31 15:47 | NUR ---
pt got agitated as she didn't recive any norco and clonezepam again .informed that it's not time .motrin given instead and pt started cursing the headline writer .pt then stated "already i will take whatever the fuck yo have".motrin tab given for pain .pt took it without any difficulty.
--- NOTE | 2022-01-31 16:00 | NUR ---
pt is cursing and laughing .
--- NOTE | 2022-01-31 16:58 | NUR ---
pt resting in bed quietly.no distress noted.
--- NOTE | 2022-01-31 17:49 | NUR ---
pt resting in bed quietly .vitals done by [employer].
[2022-01-31] MEDS ORDERED: OLANZapine 5mg rapidly disint. tablet PO STA (18:40)
--- NOTE | 2022-01-31 18:45 | NUR ---
The patient is very agitated and is responding to people that are not there. She is screaming, "shut the fuck up" followed by extremely graphic sexual comments about children being molested. Peers are becoming agitated by her and she is screaming back at them "I'm going to fucking strangle you!" She is agitated with verbal redirection and threatens staff. Dr. Curry made aware and orders received. Security called as back up but the patient took her medications with no difficulties.
--- NOTE | 2022-01-31 19:22 | NUR ---
The patient is resting quietly on her bed.
[2022-01-31] MEDS: OLANZapine 2.5MG tablet PO SCH (20:51)
[2022-01-31] MEDS ORDERED: OLANZapine 5mg rapidly disint. tablet PO PRN (21:00)
--- NOTE | 2022-01-31 21:23 | NUR ---
The patient is more appropriate. She is awake and requested an evening snack which was provided for her. She took her HS zypexa with no difficulty
--- NOTE | 2022-01-31 23:03 | NUR ---
The patient appears to be sleeping
--- NOTE | 2022-01-31 23:43 | NUR ---
The patient is awake and calling out from her bed.
--- NOTE | 2022-02-01 01:01 | NUR ---
The patient appears to be sleeping
--- NOTE | 2022-02-01 02:09 | NUR ---
The patient appears to be sleeping
--- NOTE | 2022-02-01 03:32 | NUR ---
The patient is awake and sitting on the side of her bed
--- NOTE | 2022-02-01 03:48 | NUR ---
The patient is agitated with a female peer and making threatening comments to slap her in the face
[2022-02-01] MEDS: HYDROcodone/acetaminophen 5mg/325mg tablet PO PRN ×3 (04:08→20:24)
--- NOTE | 2022-02-01 04:22 | NUR ---
THe patient is mumbling to herself and occasionally yelling out "Shut the fuck up!" even though no one is talking. SHe seems to be responding to internal stimuli. She has been needing frequent medicatin interventions. She does not respond to staff's verbal interventions. She is agitating other peers. Dr. Norwood was made aware of patient's behaviors.
--- NOTE | 2022-02-01 04:55 | NUR ---
THe patient is walking around the unit. She is very irritable
--- NOTE | 2022-02-01 07:00 | NUR ---
Received pt asleep in bed in no apparent distress.
[2022-02-01] MEDS: lactose-reduced food (Ensure Enlive) - 237ml bottle PO SCH ×3 (08:00→18:00)
--- NOTE | 2022-02-01 09:00 | NUR ---
Pt awoke just before breakfast. Pt calm and cooperative so far. Pt eating breakfast.
[2022-02-01] MEDS: clonazePAM 1mg tablet PO PRN ×2 (09:02→18:36)
[2022-02-01] MEDS: gabapentin 100mg capsule PO SCH ×3 (09:02→20:24)
[2022-02-01] MEDS: lisinopril 10 MG tablet PO SCH (09:02)
[2022-02-01] MEDS: pantoprazole 40mg Tablet.DR PO SCH (09:02)
[2022-02-01] MEDS: furosemide 20MG tablet PO SCH (09:02)
[2022-02-01] MEDS: montelukast 10mg tablet PO SCH (09:03)
--- NOTE | 2022-02-01 09:15 | NUR ---
Pt given am meds including klonopin per pt request. Pt cooperative.
--- NOTE | 2022-02-01 11:00 | NUR ---
Pt c/o pain and received norco per MD order. Pt has since fallen asleep.
--- NOTE | 2022-02-01 13:00 | NUR ---
Pt awoke for lunch and after eating has fallen back to sleep.
--- NOTE | 2022-02-01 14:11 | NUR ---
Pt laying on left side, eyes are closed, respirations are even and unlabored. Pt in no acute distress.
--- NOTE | 2022-02-01 15:00 | NUR ---
Pt lying asleep in bed without signs of distress.
--- NOTE | 2022-02-01 17:00 | NUR ---
Pt asleep in bed without signs of distress.
--- NOTE | 2022-02-01 19:00 | NUR ---
Pt utilizes prn klonopin for anxiety
--- NOTE | 2022-02-01 19:45 | NUR ---
PT up to use the restroom, bedding and sheets changed.
[2022-02-01] MEDS: olanzapine 10mg tablet PO SCH (20:23)
--- NOTE | 2022-02-01 20:34 | NUR ---
Pt takes HS medications without issue and utilizes prn norco for body pain.
[2022-02-01] MEDS: ibuprofen tablet 400 MG TABLET PO PRN (21:29)
--- NOTE | 2022-02-02 00:10 | NUR ---
Pt up to use the restroom, requests a sandwhich which she eats.
--- NOTE | 2022-02-02 02:00 | NUR ---
Pt up to use the bathroom, had grahm crackers afterward
--- NOTE | 2022-02-02 05:34 | NUR ---
Pt asleep on L side RR WNL
--- NOTE | 2022-02-02 07:00 | NUR ---
Received Pt in bed sleeping w/o distress.
[2022-02-02] MEDS: lisinopril 10 MG tablet PO SCH (08:00)
[2022-02-02] MEDS: montelukast 10mg tablet PO SCH (08:47)
[2022-02-02] MEDS: lactose-reduced food (Ensure Enlive) - 237ml bottle PO SCH ×3 (08:47→18:00)
[2022-02-02] MEDS: pantoprazole 40mg Tablet.DR PO SCH (08:47)
[2022-02-02] MEDS: furosemide 20MG tablet PO SCH (08:48)
[2022-02-02] MEDS: gabapentin 100mg capsule PO SCH ×3 (08:48→20:02)
--- NOTE | 2022-02-02 09:00 | NUR ---
Pt woke and ate breakfast. Pt ambulated to bathroom with assist and returned. She took AM meds w/o issue and received prn norco and klonopin with good effect. Pt pleasant and appreciative of assistance.
[2022-02-02] MEDS: HYDROcodone/acetaminophen 5mg/325mg tablet PO PRN ×3 (09:07→20:03)
--- NOTE | 2022-02-02 09:13 | NUR ---
Received Pt in bed sleeping w/o distress.
[2022-02-02] MEDS: clonazePAM 1mg tablet PO PRN ×2 (09:32→21:04)
--- NOTE | 2022-02-02 11:00 | NUR ---
Pt in bed sleeping w/o distress at this time.
--- NOTE | 2022-02-02 13:00 | NUR ---
Pt awake and eating lunch.
--- NOTE | 2022-02-02 16:14 | NUR ---
Pt up to bathroom with assist. Pleasant and returned to bed.
--- NOTE | 2022-02-02 17:50 | NUR ---
Pt woke and is eating dinner in bed w/o complaint.
[2022-02-02] MEDS: olanzapine 10mg tablet PO SCH (20:02)
[2022-02-02] MEDS: OLANZapine 5mg rapidly disint. tablet PO PRN (21:04)
--- NOTE | 2022-02-02 21:12 | NUR ---
Pt sleeping at start of shift. Given Bryan with HS meds for back pain. "I broke my back ten times." Unable to explain how it happened. Later Pt up on floor yelling at internal stimuli. Given PRN Klonipin and Zyprexa. Pt is lying quietly in bed at this time.
--- NOTE | 2022-02-03 00:15 | NUR ---
Pt sleeping at this time.
--- NOTE | 2022-02-03 01:42 | NUR ---
Pt sleeping has been restless given snack.
--- NOTE | 2022-02-03 03:37 | NUR ---
Pt up to BR with assist. Back to Bed pt did not say a word even when spoken to.
--- NOTE | 2022-02-03 06:01 | NUR ---
Pt awakened for VS . Pt cooperative with taking K+ dose from last night. Pt verbalized anger at being here mutiple angry complaints about care. Went back to sleep immediately.
--- NOTE | 2022-02-03 06:08 | NUR ---
Pt up several times to BR with assist. Goes right back to sleep asleep at this time.
--- NOTE | 2022-02-03 08:23 | NUR ---
pt sitting up in bed eating breakfast. reports she slept "fine"
[2022-02-03] MEDS: furosemide 20MG tablet PO SCH (08:36)
[2022-02-03] MEDS: gabapentin 100mg capsule PO SCH ×3 (08:36→20:09)
[2022-02-03] MEDS: lisinopril 10 MG tablet PO SCH (08:36)
[2022-02-03] MEDS: montelukast 10mg tablet PO SCH (08:37)
[2022-02-03] MEDS: clonazePAM 1mg tablet PO PRN ×2 (08:37→20:09)
[2022-02-03] MEDS: pantoprazole 40mg Tablet.DR PO SCH (08:38)
[2022-02-03] MEDS: lactose-reduced food (Ensure Enlive) - 237ml bottle PO SCH ×3 (08:39→18:08)
--- NOTE | 2022-02-03 09:00 | NUR ---
pt up to bathroom, yelling at staff and saying "move bitch. i dont need your fucking help. I have freedom of speech. back the fuck off."pt assisted back to bed and continues cursing to herself and at staff while laying in bed.
[2022-02-03] MEDS: HYDROcodone/acetaminophen 5mg/325mg tablet PO PRN ×2 (09:18→21:04)
--- NOTE | 2022-02-03 10:30 | NUR ---
Pt sitting on side of bed drinking coffee. No distress noted.
--- NOTE | 2022-02-03 12:30 | NUR ---
Pt up eating lunch.
--- NOTE | 2022-02-03 12:55 | NUR ---
Assisted patient to the bathroom.
--- NOTE | 2022-02-03 14:31 | NUR ---
Pt resting comfortably, respirations even and unlabored. Visible rise and fall of chest noted.
--- NOTE | 2022-02-03 16:33 | NUR ---
Pt sitting up on side of bed, requested something to drink. A juice was provided.
--- NOTE | 2022-02-03 17:49 | NUR ---
Pt c/o "kidney pain" during end of shift vitals. Pt yells "I have a big tear in my kidney from the age of 13." Pt has a history of kidney ds and frequent UTI'.s Received order for urine sample. Addendum: 02/03/22 at 1820 by ANGELICA No other symptoms reported.
--- NOTE | 2022-02-03 19:10 | NUR ---
Patient sits at bedside finishing her dinner. She complains of bilateral flank pain which is ongoing for at least the past year. Some dementia is present, the patient is oriented to person and place, not to time and total situation. She request medications for anxiety and pain. Her Rx meds will be given early at 1999 as allowed.
[2022-02-03 20:05] LABS: CLARITY,URINE CLEAR (Clear); COLOR,URINE YELLOW (Yellow); GLUCOSE, URINE NEGATIVE (Neg); KETONES,URINE TRACE mg/dl (Neg); LEUKOCYTE ESTERASE ,URINE TRACE (Neg); NITRITES, URINE NEGATIVE (Neg); OCCULT BLOOD,URINE NEGATIVE (Neg); PROTEIN,URINE NEGATIVE (Neg); UA COLLECTION TYPE CLN CATCH MIDSTREAM; UROBILINOGEN,URINE 0.2 E.U/dL (0.2-1.0)
[2022-02-03] MEDS: olanzapine 10mg tablet PO SCH (20:08)
[2022-02-03] MEDS: ibuprofen tablet 400 MG TABLET PO PRN (20:10)
[2022-02-03 20:19] LABS: RBC,URINE 0-2 /HPF (0-2)
[2022-02-03 20:20] LABS: BACTERIA,URINE 2+ /HPF (Neg); MUCUS STRANDS NONE SEEN /LPF (Neg); SQUAMOUS EPITHELIAL CELL,UR FEW /LPF (FEW)
--- NOTE | 2022-02-03 20:27 | NUR ---
Patient is resting quietly. She was compliant with her dinner meal and night medications.
[2022-02-03] MEDS: OLANZapine 5mg rapidly disint. tablet PO PRN (21:04)
--- NOTE | 2022-02-03 21:07 | NUR ---
Patient states bilateral flank pain is still bothering her. Patient exhibits anxiety.
--- NOTE | 2022-02-03 22:16 | NUR ---
Patient just awoke. She is eating potato chips. In direct view from the nurses station.
--- NOTE | 2022-02-04 01:53 | NUR ---
Patient is sleeping in low fowlera position. Knees flexed, in view from nurses station.
--- NOTE | 2022-02-04 05:00 | NUR ---
Patient sleeping in a supine position.
--- NOTE | 2022-02-04 07:01 | NUR ---
Pt resting comfortably, respirations even and unlabored.
[2022-02-04] MEDS: lactose-reduced food (Ensure Enlive) - 237ml bottle PO SCH ×3 (07:58→17:56)
[2022-02-04] MEDS: furosemide 20MG tablet PO SCH (08:21)
[2022-02-04] MEDS: montelukast 10mg tablet PO SCH (08:21)
[2022-02-04] MEDS: pantoprazole 40mg Tablet.DR PO SCH (08:21)
[2022-02-04] MEDS: gabapentin 100mg capsule PO SCH ×3 (08:21→20:57)
[2022-02-04] MEDS: lisinopril 10 MG tablet PO SCH (08:21)
[2022-02-04] MEDS: clonazePAM 1mg tablet PO PRN ×2 (08:35→21:00)
[2022-02-04] MEDS: ibuprofen tablet 400 MG TABLET PO PRN (08:49)
--- NOTE | 2022-02-04 09:00 | NUR ---
Pt sitting on side of bed. Pt was compliant with medication.
--- NOTE | 2022-02-04 09:30 | NUR ---
Pt assisted to bathroom.
[2022-02-04] MEDS: HYDROcodone/acetaminophen 5mg/325mg tablet PO PRN ×2 (09:55→20:57)
--- NOTE | 2022-02-04 11:00 | NUR ---
Pt resting comfortably, respirations even and unlabored.
--- NOTE | 2022-02-04 12:28 | NUR ---
SPOKE WITH DR LO REGARDING PT'S U/A. NO ADDITIONAL ORDERS. ENCOURAGE FLUIDS.
--- NOTE | 2022-02-04 12:58 | NUR ---
Pt sitting up in bed eating lunch.
--- NOTE | 2022-02-04 15:03 | NUR ---
Pt resting quietly, respirations even and unlabored.
[2022-02-04] MEDS: acetaminophen 325mg tablet PO PRN (15:32)
--- NOTE | 2022-02-04 15:33 | NUR ---
Pt reports headache 07/01. Tylenol administered. will continue to monitor.
--- NOTE | 2022-02-04 17:05 | NUR ---
Pt resting comfortably, respirations even and unlabored.
--- NOTE | 2022-02-04 18:26 | NUR ---
Pt sitting on the edge of the bed, eating dinner. No acute distress.
--- NOTE | 2022-02-04 19:27 | NUR ---
pt laying in bed, eyes closed. Pt called out requesting her night time medications. Informed her that her medications are not due at this time.
--- NOTE | 2022-02-04 20:25 | NUR ---
pt laying supine, head of bed elevated. Eyes are closed, pt is in no acute distress.
[2022-02-04] MEDS: olanzapine 10mg tablet PO SCH (20:56)
--- NOTE | 2022-02-04 21:25 | NUR ---
Pt standing and walking around room, denies any requests at this time except states " I could use a beer." Pt compliant with taking all night time medication. Pt reports 8/10 low back pain, pt given her prn [place].
--- NOTE | 2022-02-04 21:34 | NUR ---
Pt now claiming that she did not receive her [place]. Reassured the pt that she did infact receive this medication approximately 30 minutes ago. Pt states "No I didn't, all you fuckers lie!" Pt laying supine in bed at this time.
--- NOTE | 2022-02-04 22:43 | NUR ---
Pt laying supine, head of bed elevated. Eyes are closed, respirations are even and unlabored. Pt is in no apprent distress.
--- NOTE | 2022-02-05 00:18 | NUR ---
Pt laying supine, eyes closed, respirations are even and unlabored. Pt is in no acute distress.
--- NOTE | 2022-02-05 01:16 | NUR ---
Pt ambulated to the restroom with assistance. Pt is now sitting quietly on the edge of the bed.
--- NOTE | 2022-02-05 02:00 | NUR ---
Pt finished eating a sandwhich and is now laying on her left lateral side. Pt in no acute distress.
[2022-02-05] MEDS: acetaminophen 325mg tablet PO PRN (02:27)
--- NOTE | 2022-02-05 02:32 | NUR ---
Pt complaining of 8/10 low back pain. Pt given prn dose of acetaminophen. Pt currently laying supine in bed.
--- NOTE | 2022-02-05 04:11 | NUR ---
Pt sitting on the edge of her bed eating crackers. Pt ambulated to the restroom with stand by assistance.
--- NOTE | 2022-02-05 05:13 | NUR ---
Pt laying in bed quietly.
--- NOTE | 2022-02-05 06:35 | NUR ---
Patient ambulatory, steady gait to BR with assistance of RN. No distress observed. Continue to monitor.
[2022-02-05] MEDS: lactose-reduced food (Ensure Enlive) - 237ml bottle PO SCH ×3 (08:00→18:00)
[2022-02-05] MEDS: pantoprazole 40mg Tablet.DR PO SCH (08:54)
[2022-02-05] MEDS: montelukast 10mg tablet PO SCH (08:54)
[2022-02-05] MEDS: furosemide 20MG tablet PO SCH (08:54)
[2022-02-05] MEDS: gabapentin 100mg capsule PO SCH ×3 (08:54→19:38)
[2022-02-05] MEDS: lisinopril 10 MG tablet PO SCH (08:54)
--- NOTE | 2022-02-05 09:00 | NUR ---
Pt up for breakfast and took medications and then returned to sleep.
[2022-02-05] MEDS: HYDROcodone/acetaminophen 5mg/325mg tablet PO PRN ×2 (10:12→19:38)
[2022-02-05] MEDS: clonazePAM 1mg tablet PO PRN ×2 (10:46→19:38)
--- NOTE | 2022-02-05 11:00 | NUR ---
Pt awoke and requested klonopin for anxiety which was given. Pt then sitting quietly at bedside without any complaints. Pt assisted to the bathroom and now is back sitting on edge of her bed.
--- NOTE | 2022-02-05 13:00 | NUR ---
Pt up to eat lunch. No complaints. Ambulated to bathroom with standby assist.
--- NOTE | 2022-02-05 15:00 | NUR ---
Pt up to the bathroom x 1 and currently is back sleeping.
--- NOTE | 2022-02-05 17:00 | NUR ---
Pt up x 1 to the bathroom, otherwise, she has been sleeping without complaints.
--- NOTE | 2022-02-05 17:00 | NUR ---
Pt restless and talking and crying to herself. What she verbalizes is basically psychotic giberish. Pt up multiple times to the bathroom. Addendum: 02/05/22 at 1712 by FARHAT wrong pt.
[2022-02-05] MEDS: olanzapine 10mg tablet PO SCH (19:38)
--- NOTE | 2022-02-05 19:49 | NUR ---
Pt sitting up eating dinner at change of shift. Up to the BR with assistance. Pt took all HS medications.
--- NOTE | 2022-02-05 20:46 | NUR ---
Pt appears to be sleeping.
--- NOTE | 2022-02-05 23:09 | NUR ---
Pt appears to be sleeping.
--- NOTE | 2022-02-06 03:09 | NUR ---
pt appears to be sleeping.
--- NOTE | 2022-02-06 06:31 | NUR ---
Patient sitting up on the side of the bed. No distress observed. Continue to monitor.
[2022-02-06] MEDS: furosemide 20MG tablet PO SCH (07:39)
[2022-02-06] MEDS: gabapentin 100mg capsule PO SCH ×3 (07:40→20:23)
[2022-02-06] MEDS: montelukast 10mg tablet PO SCH (07:40)
[2022-02-06] MEDS: lisinopril 10 MG tablet PO SCH (07:40)
[2022-02-06] MEDS: pantoprazole 40mg Tablet.DR PO SCH (07:40)
--- NOTE | 2022-02-06 08:16 | NUR ---
Patient sitting up and eating breakfast. No distress observed. Continue to monitor.
[2022-02-06] MEDS: lactose-reduced food (Ensure Enlive) - 237ml bottle PO SCH ×3 (08:23→17:56)
--- NOTE | 2022-02-06 08:44 | NUR ---
Spoke with Dr. Ross regarding patient sensitivity report resulting positive for E.coli. Dr. Ross stated that patient needs to be on kelfex, Stated that he would place order for antibiotic. Larissa GARCIA aware of new order.
--- NOTE | 2022-02-06 09:10 | NUR ---
Patient walking back to her bed from restroom with the assistance of [employer] Narinder. No distress observed. Continue to monitor.
--- NOTE | 2022-02-06 11:07 | NUR ---
Patient sleeping supine. No distress observed. Continue to monitor.
[2022-02-06] MEDS: clonazePAM 1mg tablet PO PRN ×2 (11:19→20:41)
[2022-02-06] MEDS: HYDROcodone/acetaminophen 5mg/325mg tablet PO PRN ×2 (11:19→20:41)
--- NOTE | 2022-02-06 12:12 | NUR ---
Patient sitting up and eating. No disstress observed. Continue to monitor.
[2022-02-06] MEDS ORDERED: cephalexin 500mg capsule PO ONE (13:00)
--- NOTE | 2022-02-06 14:14 | NUR ---
Patient sleeping on her left side. No distress observed. Continue to monitor.
--- NOTE | 2022-02-06 16:07 | NUR ---
Patient sleeping. No distress observed. Continue to monitor.
--- NOTE | 2022-02-06 19:00 | NUR ---
Pt lying in bed, eyes closed, no complaints, no distress.
[2022-02-06] MEDS: olanzapine 10mg tablet PO SCH (20:24)
--- NOTE | 2022-02-06 21:00 | NUR ---
Pt sat up and ate her dinner. Pt took hs meds without issue and requested norco and klonopin which was given. Pt up to bathroom with assistance and is now back in bed.
--- NOTE | 2022-02-06 22:49 | NUR ---
The patient observed wondering in front of her bed and stated that she was going to go outside. She was made aware of the time and went back to rest on her bed.
--- NOTE | 2022-02-07 01:22 | NUR ---
The patient appears to be sleeping
--- NOTE | 2022-02-07 04:06 | NUR ---
The patient up to use the bathroom and back to sleep
--- NOTE | 2022-02-07 05:16 | NUR ---
The patient is quietly sitting at the bedside awake
--- NOTE | 2022-02-07 06:42 | NUR ---
Patient awake and reclining in bed. No distress observed. Continue to monitor.
[2022-02-07] MEDS: lisinopril 10 MG tablet PO SCH (08:00)
[2022-02-07] MEDS: montelukast 10mg tablet PO SCH (08:03)
[2022-02-07] MEDS: furosemide 20MG tablet PO SCH (08:03)
[2022-02-07] MEDS: pantoprazole 40mg Tablet.DR PO SCH (08:05)
[2022-02-07] MEDS: gabapentin 100mg capsule PO SCH ×3 (08:05→19:52)
--- NOTE | 2022-02-07 08:12 | NUR ---
Patient eating breakfast. No distress observed. Continue to monitor.
[2022-02-07] MEDS: HYDROcodone/acetaminophen 5mg/325mg tablet PO PRN ×2 (08:15→19:52)
[2022-02-07] MEDS: lactose-reduced food (Ensure Enlive) - 237ml bottle PO SCH ×3 (08:15→18:20)
--- NOTE | 2022-02-07 10:09 | NUR ---
Patient sleeping reclining in bed. No distress observed. Continue to monitor.
--- NOTE | 2022-02-07 12:10 | NUR ---
Patient eating lunch. No distress observed. Continue to monitor.
--- NOTE | 2022-02-07 14:07 | NUR ---
Patient laying in bed. No distress observed. Continue to monitor.
--- NOTE | 2022-02-07 16:01 | NUR ---
Patient walking with tech in hallway for exercise. No distress observed. Continue to monitor.
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
--- NOTE | 2022-02-07 17:32 | NUR ---
Patient awake and reclining in bed. No distress observed. Continue to monitor.
[2022-02-07] MEDS: clonazePAM 1mg tablet PO PRN (19:52)
[2022-02-07] MEDS: olanzapine 10mg tablet PO SCH (19:53)
--- NOTE | 2022-02-07 20:36 | NUR ---
The patient has been fairly quiet and resting on her bed. She was given a snack. She requested her medications early.
--- NOTE | 2022-02-07 22:56 | NUR ---
The patient currently appears to be sleeping
--- NOTE | 2022-02-07 23:40 | NUR ---
THe patient is quietly sitting up on the side of her bed eating a snack
--- NOTE | 2022-02-08 00:50 | NUR ---
THe patient is resting on her bed but awake
--- NOTE | 2022-02-08 02:09 | NUR ---
The patient is cursing and talking to people who are not there
--- NOTE | 2022-02-08 03:26 | NUR ---
The patient appears to be sleeping
--- NOTE | 2022-02-08 05:02 | NUR ---
The patient is resting on her bed but awake
--- NOTE | 2022-02-08 06:34 | NUR ---
Received pt. sitting up in bed at the beginning of the shift, she was noted to be talking aloud to herself possibly responding to internal stimuli. Will continue to monitor closely.
[2022-02-08] MEDS: montelukast 10mg tablet PO SCH (06:53)
[2022-02-08] MEDS: clonazePAM 1mg tablet PO PRN ×2 (06:54→20:15)
[2022-02-08] MEDS: lisinopril 10 MG tablet PO SCH (06:54)
[2022-02-08] MEDS: furosemide 20MG tablet PO SCH (06:54)
[2022-02-08] MEDS: gabapentin 100mg capsule PO SCH ×3 (06:54→20:14)
[2022-02-08] MEDS: pantoprazole 40mg Tablet.DR PO SCH (06:54)
[2022-02-08] MEDS: HYDROcodone/acetaminophen 5mg/325mg tablet PO PRN ×3 (06:58→20:14)
--- NOTE | 2022-02-08 07:03 | NUR ---
Pt. presents with agitation and what appear to be paranoid delusions that others have stolen from her. She continues to appear to be responding to internal stimuli as well. PRN Clonazepam was administered along with [place] for c/o generalized pain. Pt. laying in bed at this time, will continue to monitor.
[2022-02-08] MEDS: lactose-reduced food (Ensure Enlive) - 237ml bottle PO SCH ×3 (08:22→18:27)
--- NOTE | 2022-02-08 08:27 | NUR ---
Pt. sleeping at this time with HOB elevated, rr even and unlabored.
--- NOTE | 2022-02-08 10:29 | NUR ---
Pt. at breakfast and afterwards lay back down to sleep. She is sleeping on her right side at this time, rr are even and unlabored.
--- NOTE | 2022-02-08 12:30 | NUR ---
Pt. is sitting up eating lunch at this time.
--- NOTE | 2022-02-08 14:30 | NUR ---
Awoke pt. to remind her of her lunch, she refused, but did drink all of her Ensure before returning back to sleep.
--- NOTE | 2022-02-08 16:22 | NUR ---
Pt. continues to sleep at this time, HOB elevated and rise and fall of chest noted.
--- NOTE | 2022-02-08 17:52 | NUR ---
Pt. continues to sleep at this time, laying on her left side, rr even and unlabored.
[2022-02-08] MEDS: acetaminophen 325mg tablet PO PRN (18:57)
[2022-02-08] MEDS: OLANZapine 5mg rapidly disint. tablet PO PRN (18:57)
--- NOTE | 2022-02-08 19:04 | NUR ---
Tylenol given for pain, Zyprexa given for patients anxiety.
--- NOTE | 2022-02-08 20:11 | NUR ---
Patient medicated for her continuing pain. She is medication compliant.
[2022-02-08] MEDS: olanzapine 10mg tablet PO SCH (20:14)
--- NOTE | 2022-02-08 21:44 | NUR ---
Patient is up to bathroom with assist. Patient is cooperative and less anxious.
--- NOTE | 2022-02-08 23:05 | NUR ---
Patient is sitting up at bedside eating potato chips.
--- NOTE | 2022-02-09 00:48 | NUR ---
Patient sleeps in a low fowlers position.
--- NOTE | 2022-02-09 04:01 | NUR ---
Patient is sleeping in a low fowlers position, no distress.
--- NOTE | 2022-02-09 05:32 | NUR ---
Patient is sleeping in a low fowlers position on her left side.
[2022-02-09] MEDS: HYDROcodone/acetaminophen 5mg/325mg tablet PO PRN ×3 (07:49→17:42)
[2022-02-09] MEDS: lisinopril 10 MG tablet PO SCH (07:50)
[2022-02-09] MEDS: furosemide 20MG tablet PO SCH (07:50)
[2022-02-09] MEDS: gabapentin 100mg capsule PO SCH ×3 (07:50→20:26)
[2022-02-09] MEDS: pantoprazole 40mg Tablet.DR PO SCH (07:50)
[2022-02-09] MEDS: montelukast 10mg tablet PO SCH (07:50)
--- NOTE | 2022-02-09 08:30 | NUR ---
Pt. awake and sitting at bedside eating breakfast. Pt.took all medications. Pt. requested PRN for pain and received [place] 5/325
[2022-02-09] MEDS: lactose-reduced food (Ensure Enlive) - 237ml bottle PO SCH ×3 (08:49→18:17)
[2022-02-09] MEDS: ibuprofen tablet 400 MG TABLET PO PRN ×2 (10:10→20:26)
--- NOTE | 2022-02-09 10:30 | NUR ---
Pt. awake and resting in supine position in bed.
--- NOTE | 2022-02-09 12:30 | NUR ---
Pt. awake and eating lunch in bed. Pt. requires assistance opening items due to visual impairment but can feed herself.
--- NOTE | 2022-02-09 14:30 | NUR ---
Pt. asleep in bed on left side. Normal R&R of respirations observed.
--- NOTE | 2022-02-09 16:30 | NUR ---
Pt. awake and resting in bed. Pt. in no apparent distress.
--- NOTE | 2022-02-09 17:42 | NUR ---
Pt. c/o of 05/01 generalized pain and received [place] 5/325 po.
--- NOTE | 2022-02-09 19:25 | NUR ---
The patient is sitting quietly with her bed. She is oriented to year and month. She was made aware that she was in the ER and she stated that she was not aware of that. She is assisted with going to the bathroom.
[2022-02-09] MEDS: clonazePAM 1mg tablet PO PRN (20:26)
[2022-02-09] MEDS: olanzapine 10mg tablet PO SCH (20:26)
--- NOTE | 2022-02-09 20:32 | NUR ---
The patient has been pleasant when approached. She is attempting to go to sleep for the night.
--- NOTE | 2022-02-09 21:37 | NUR ---
The patient appears to be sleeping
--- NOTE | 2022-02-09 23:47 | NUR ---
The patient is awake and requesting food and was given a snack
--- NOTE | 2022-02-10 01:01 | NUR ---
The patient appears to be sleeping
[2022-02-10] MEDS: HYDROcodone/acetaminophen 5mg/325mg tablet PO PRN ×3 (02:08→18:11)
--- NOTE | 2022-02-10 02:28 | NUR ---
The patient awake and sitting up at the bedside. Complain of pain 6/10 and norco given
--- NOTE | 2022-02-10 03:27 | NUR ---
The patient appears to be sleeping
--- NOTE | 2022-02-10 05:08 | NUR ---
The patient appears to be sleeping
--- NOTE | 2022-02-10 06:30 | NUR ---
Assumed care of patient. Pt sleeping, respirations even and unlabored.
--- NOTE | 2022-02-10 07:05 | NUR ---
Pt up to the bathroom.
[2022-02-10] MEDS: lactose-reduced food (Ensure Enlive) - 237ml bottle PO SCH ×3 (08:23→18:00)
[2022-02-10] MEDS: furosemide 20MG tablet PO SCH (08:43)
[2022-02-10] MEDS: pantoprazole 40mg Tablet.DR PO SCH (08:43)
[2022-02-10] MEDS: montelukast 10mg tablet PO SCH (08:43)
[2022-02-10] MEDS: gabapentin 100mg capsule PO SCH ×3 (08:43→19:56)
[2022-02-10] MEDS: lisinopril 10 MG tablet PO SCH (08:48)
--- NOTE | 2022-02-10 09:00 | NUR ---
Pt sitting on side of bed eating breakfast. Pt was compliant with medication.
[2022-02-10] MEDS: clonazePAM 1mg tablet PO PRN ×2 (09:19→18:11)
[2022-02-10] MEDS: ibuprofen tablet 400 MG TABLET PO PRN ×2 (09:25→21:50)
--- NOTE | 2022-02-10 11:02 | NUR ---
Pt resting comfortably, no distress noted. Respirations even and unlabored.
--- NOTE | 2022-02-10 11:27 | NUR ---
Pt walked herself to bathroom when journalists and other writers attempted to help her with her direction pt aburuptly said "I can do it myself!" "I don't need no fucking help!" Printing Machine Operator stood by and continued to direct her. Pt toileted herself and reacted the same way on her way back to her bed. Pt continued with a short rant ending with calling journalists and other writers a "f clare."
--- NOTE | 2022-02-10 11:39 | NUR ---
While consumer loan underwriter was pulling pt's pain medication, she got out of bed and was walking towards an exit. Pt yelling at tech. Pill Maker verbally assisted pt back to her bed and administered her [place] 5mg/325. Pt c/o generalized pain 05/01.
--- NOTE | 2022-02-10 12:05 | NUR ---
Pt declined a warm bed bath.
--- NOTE | 2022-02-10 13:04 | NUR ---
Pt resting comfortably, respirations even and unlabored.
--- NOTE | 2022-02-10 15:05 | NUR ---
Pt sleeping restfully, respirations even and labored.
--- NOTE | 2022-02-10 17:02 | NUR ---
Pt sitting on side of bed having a snack. No distress noted.
[2022-02-10] MEDS: OLANZapine 5mg rapidly disint. tablet PO PRN (18:10)
--- NOTE | 2022-02-10 18:15 | NUR ---
The patient is agitated and appears to be responding to internal stimuli. Yelling out, "Shut the fuck up!!" when no one is talking. Zyprexa, klonoin given as well as norco for complaints of generalized pain 03/01
--- NOTE | 2022-02-10 19:21 | NUR ---
The patient presesnts as less agitated and is resting on his bed
[2022-02-10] MEDS: olanzapine 10mg tablet PO SCH (19:56)
--- NOTE | 2022-02-10 20:47 | NUR ---
The patient appears to be sleeping
--- NOTE | 2022-02-10 21:32 | NUR ---
THe patient up to use the bathroom
--- NOTE | 2022-02-10 23:30 | NUR ---
The patient appears to be sleeping
--- NOTE | 2022-02-11 01:37 | NUR ---
The patient is on her bed having conversations with people who are not there
[2022-02-11] MEDS: HYDROcodone/acetaminophen 5mg/325mg tablet PO PRN ×3 (02:02→17:53)
--- NOTE | 2022-02-11 02:16 | NUR ---
The patient awake and talking to people who are not there. She also complains of pain in her legs and [place] was given
--- NOTE | 2022-02-11 03:29 | NUR ---
The patient is sitting up at the bedside and occasionally is talking to people who are not there.
--- NOTE | 2022-02-11 05:10 | NUR ---
The patient appears to be sleeping
--- NOTE | 2022-02-11 06:28 | NUR ---
Received patient awake sitting on side of bed. PCT assisted pt to the bathroom.
--- NOTE | 2022-02-11 06:54 | NUR ---
Pt sitting on side of bed talking talking to people who aren't there.
[2022-02-11] MEDS: gabapentin 100mg capsule PO SCH ×3 (07:12→20:38)
[2022-02-11] MEDS: montelukast 10mg tablet PO SCH (07:12)
[2022-02-11] MEDS: lisinopril 10 MG tablet PO SCH (07:13)
[2022-02-11] MEDS: furosemide 20MG tablet PO SCH (07:13)
[2022-02-11] MEDS: pantoprazole 40mg Tablet.DR PO SCH (07:14)
[2022-02-11] MEDS: clonazePAM 1mg tablet PO PRN ×2 (07:24→20:42)
--- NOTE | 2022-02-11 07:27 | NUR ---
Pt is very restless this morning, pt is very vocal, loud and using profanities; talking to people who aren't there. Pt was administered her morning medication, c/o of pain 8/10 in lower back. Pt presents in pain, gait is a little more shuffled and slow. PRN [place] was also administered.
[2022-02-11] MEDS: lactose-reduced food (Ensure Enlive) - 237ml bottle PO SCH ×3 (08:04→18:04)
--- NOTE | 2022-02-11 08:30 | NUR ---
Pt finishing her breakfast.
--- NOTE | 2022-02-11 10:31 | NUR ---
Pt resting comfortably, respirations even and unlabored.
--- NOTE | 2022-02-11 12:30 | NUR ---
Pt sitting on side of bed eating lunch.
--- NOTE | 2022-02-11 14:20 | NUR ---
Administered pt's 1300 medication. It was delayed as pt was sleeping r/t to little sleep logged last night.
--- NOTE | 2022-02-11 15:01 | NUR ---
Pt resting comfortably, no restless movements. Respirations even and unlabored.
--- NOTE | 2022-02-11 16:00 | NUR ---
Pt want' able to get to bathroom on time, incontinent of stool. Tech cleaned patient and clean scrubs given.
--- NOTE | 2022-02-11 16:35 | NUR ---
Pt sitting on side of bed eating a snack. Encouraged pt to hydrate with water.
[2022-02-11] MEDS: ibuprofen tablet 400 MG TABLET PO PRN (17:52)
--- NOTE | 2022-02-11 18:57 | NUR ---
The patient is currently resting on her bed after eating most of her dinner. She ambulates to the bathroom with some quidance 2nd to her poor insight. She appears very poorly groomed and has been refusing assistance with getting a shower. She is irritable with more that a few brief interactions. She currently does not seem to be responding to internal stimuli. She is complaining of pain and was given norco and motrin at dinner time.
[2022-02-11] MEDS: olanzapine 10mg tablet PO SCH (20:38)
--- NOTE | 2022-02-11 20:48 | NUR ---
The patient assisted up to the bathroom. She is very malodorous
--- NOTE | 2022-02-11 21:31 | NUR ---
The patient is quietly sitting on her bed eating a snack
--- NOTE | 2022-02-11 23:24 | NUR ---
The patient up to use the bathroom
--- NOTE | 2022-02-12 00:44 | NUR ---
The patient assisted up to the bathroom
--- NOTE | 2022-02-12 02:20 | NUR ---
The patient appears to be sleeping
--- NOTE | 2022-02-12 03:24 | NUR ---
The patient appears to be sleeping
[2022-02-12] MEDS: HYDROcodone/acetaminophen 5mg/325mg tablet PO PRN ×2 (04:49→19:19)
--- NOTE | 2022-02-12 05:20 | NUR ---
THe patient currently appears to be sleeping after requesting/receiving prn norco
--- NOTE | 2022-02-12 06:57 | NUR ---
Pt resting comfortably, resipirations even and unlabored.
[2022-02-12] MEDS: montelukast 10mg tablet PO SCH (08:09)
[2022-02-12] MEDS: clonazePAM 1mg tablet PO PRN ×2 (08:09→19:19)
[2022-02-12] MEDS: gabapentin 100mg capsule PO SCH ×3 (08:09→21:24)
[2022-02-12] MEDS: furosemide 20MG tablet PO SCH (08:09)
[2022-02-12] MEDS: lisinopril 10 MG tablet PO SCH (08:10)
[2022-02-12] MEDS: pantoprazole 40mg Tablet.DR PO SCH (08:10)
[2022-02-12] MEDS: lactose-reduced food (Ensure Enlive) - 237ml bottle PO SCH ×3 (08:12→18:02)
--- NOTE | 2022-02-12 09:00 | NUR ---
Pt sleeping restfully, respirations even and unlabored.
--- NOTE | 2022-02-12 09:30 | NUR ---
Dr. Rowland assessed patient, field underwriter asked about labs r/t her daily Lasix. ordered repeat CBC/Chem. Will also renew her medications.
--- NOTE | 2022-02-12 11:06 | NUR ---
Phlebtomist at bedside, pt interacting appropriately.
[2022-02-12 11:14] LABS: EOSINOPHILS # (AUTO) 0.1 X10'3 (0-0.9); EOSINOPHILS % (AUTO) 2.2 % (0-6); HEMATOCRIT 34.1 % (35.0-45.0); LYMPHOCYTES # (AUTO) 0.6 X10'3 (1.1-4.8); MONOCYTES # (AUTO) 0.5 X10'3 (0-0.9); PLATELET COUNT 141 X10'3 (140-440); WHITE BLOOD COUNT 4.5 X10'3 (4.5-11.0)
[2022-02-12 11:16] LABS: BASOPHILS % (AUTO) 0.5 % (0-1); LYMPHOCYTES % (AUTO) 13.8 % (21-51); MEAN CORPUSCULAR HEMOGLOBIN 25.9 PG (27.0-31.0); MEAN CORPUSCULAR HGB CONC 32.4 g/dL (33.0-36.5); MEAN CORPUSCULAR VOLUME 80.1 FL (78-98); MEAN PLATELET VOLUME 9.2 FL (7.4-10.4); MONOCYTES % (AUTO) 11.9 % (2-12); NEUTROPHILS # (AUTO) 3.2 X10'3 (1.8-7.7); NEUTROPHILS % (AUTO) 71.6 % (42-75); RED BLOOD COUNT 4.26 X10'6 (4.20-5.60); RED CELL DISTRIBUTION WIDTH 15.7 % (11.5-14.5)
--- NOTE | 2022-02-12 12:55 | NUR ---
Pt sitting on side of bed eating lunch.
--- NOTE | 2022-02-12 14:05 | NUR ---
Pt up to the bathroom.
[2022-02-12 14:18] LABS: ALANINE AMINOTRANSFERASE 55 U/L (12-78); ALBUMIN 2.8 G/DL (3.4-5.0); ALBUMIN/GLOBULIN RATIO 0.9 (1.1-1.5); ALKALINE PHOSPHATASE 119 IU/L (46-116); ANION GAP 9 (8-16); ASPARTATE AMINO TRANSFERASE 41 U/L (10-37); BILIRUBIN,TOTAL 0.2 MG/DL (0.1-1.0); BLOOD UREA NITROGEN 47 MG/DL (7-18); BUN/CREATININE RATIO 64.4 (6.6-38.0); CALCIUM 8.7 MG/DL (8.5-10.1); CHLORIDE 101 MMOL/L (99-107); CREATININE 0.73 MG/DL (0.40-0.90); GLUCOSE 98 MG/DL (70-104); POTASSIUM 4.6 MMOL/L (3.5-5.1); SODIUM 137 MMOL/L (135-145); eGFR 80 ML/MIN
--- NOTE | 2022-02-12 15:00 | NUR ---
Pt resting comfortably, respirations even and unlabored.
--- NOTE | 2022-02-12 15:14 | NUR ---
Labs were reviewed by DAPHNIE Melendez. Continue to encourage patient to drink fluids. Addendum: 02/12/22 at 1722 by ANGELICA COLLABERATED WITH DR. DIXON: 2000mL of N/S were ordered.
--- NOTE | 2022-02-12 17:00 | NUR ---
Pt sleeping restfully, respirations even and unlabored.
[2022-02-12] MEDS ORDERED: normal saline 1000ML IV soln IV ONE (17:05)
--- NOTE | 2022-02-12 18:00 | NUR ---
Started bolus of normal saline.
--- NOTE | 2022-02-12 19:00 | NUR ---
Patient is sitting at bedside finishing dinner. No distress.
[2022-02-12] MEDS: ibuprofen tablet 400 MG TABLET PO PRN (19:19)
[2022-02-12] MEDS: OLANZapine 5mg rapidly disint. tablet PO PRN (19:19)
--- NOTE | 2022-02-12 19:32 | NUR ---
Patient up to bathroom. She ambulates with assistance as she is nearly blind. Upon returing to bed her second litre of NaCl is started.
--- NOTE | 2022-02-12 20:32 | NUR ---
Patient is medication compliant. No distress. She rests quietly.
[2022-02-12] MEDS: olanzapine 10mg tablet PO SCH (21:24)
--- NOTE | 2022-02-12 21:53 | NUR ---
Patient is awake, requesting and given liquids. No distress.
--- NOTE | 2022-02-12 23:34 | NUR ---
Patient continues to present with needy behavior. Her IV was DC'd with the cath intact. Two litres of NaCl infused. Patient urged to sleep.
--- NOTE | 2022-02-13 02:09 | NUR ---
Patient is up with assist to void. She then returns to bed. Patient states she "can't sleep, because I slept all day."
[2022-02-13] MEDS ORDERED: LORazepam 1 MG tablet PO ONE (03:00)
--- NOTE | 2022-02-13 03:06 | NUR ---
Patient continues to exhibit aggitation. She requests Ativan. This teletypewriter operator consulted with Dr. Norwood. An order was received for Ativan 2 mg PO. This was given.
--- NOTE | 2022-02-13 03:59 | NUR ---
Patient to bathroom to void. She returns to bed with assistance. No distress. Calmer now.
--- NOTE | 2022-02-13 04:19 | NUR ---
BREAKING PRIMARY RN, PT TALKING TO HERSELF "DON'T TALK TO ME, YOU'RE ACTING LIKE IDIOTS"
--- NOTE | 2022-02-13 05:46 | NUR ---
Patient out of bed for a short ambulation with assistance. Back to bed. No long periods of sleep for this patient during the night.
--- NOTE | 2022-02-13 06:26 | NUR ---
Patient awake in bed reclining and asking for her [place] and Clonazepam. Continue to monitor.
[2022-02-13] MEDS: clonazePAM 1mg tablet PO PRN ×2 (06:34→20:00)
[2022-02-13] MEDS: pantoprazole 40mg Tablet.DR PO SCH (06:34)
[2022-02-13] MEDS: HYDROcodone/acetaminophen 5mg/325mg tablet PO PRN ×3 (06:34→20:03)
--- NOTE | 2022-02-13 07:17 | NUR ---
Patient talking loud with an occasional yell at someone. Patient would quiet down when asked. Continue to monitor.
--- NOTE | 2022-02-13 08:11 | NUR ---
Patient eating breakfast. No distress observed. Continue to monitor.
[2022-02-13] MEDS: montelukast 10mg tablet PO SCH (08:35)
--- NOTE | 2022-02-13 08:35 | NUR ---
Patient ambulatory to BR with RN. No distress observed. Continue to monitor.
[2022-02-13] MEDS: furosemide 20MG tablet PO SCH (08:36)
[2022-02-13] MEDS: gabapentin 100mg capsule PO SCH ×3 (08:36→20:00)
[2022-02-13] MEDS: lisinopril 10 MG tablet PO SCH (08:36)
[2022-02-13] MEDS: lactose-reduced food (Ensure Enlive) - 237ml bottle PO SCH ×3 (08:37→18:58)
--- NOTE | 2022-02-13 10:26 | NUR ---
Patient sleeping. No distress observed. Continue to monitor.
--- NOTE | 2022-02-13 12:09 | NUR ---
Patient eating lunch. No distress observed. Continue to monitor.
--- NOTE | 2022-02-13 14:07 | NUR ---
Patient ambulatory to BR steady gait with Tech. RN cleaned the floor and tray table by patient's bed. It was sticky. RN and Tech will change bedding next time she goest to the BR. Patient calm and in no distress. Continue to monitor.
--- NOTE | 2022-02-13 16:05 | NUR ---
Note brendan in ED - 02/13/22 at 1607 by YASMIN Patient's at bed side. Patient getting up to walk with . No distress observed. Continue to monitor.
--- NOTE | 2022-02-13 16:08 | NUR ---
Patient sleeping/reclining in bed. No distress observed. Continue to monitor.
--- NOTE | 2022-02-13 17:28 | NUR ---
Patient is awake and reclining in bed. No distress observed. Continue to monitor.
[2022-02-13] MEDS: olanzapine 10mg tablet PO SCH (20:00)
[2022-02-13] MEDS: ibuprofen tablet 400 MG TABLET PO PRN (20:01)
--- NOTE | 2022-02-13 23:00 | NUR ---
Patient is sleeping quietly, her knees flexed.
--- NOTE | 2022-02-14 02:18 | NUR ---
Patient is sleeping quietly. She is supine in bed.
--- NOTE | 2022-02-14 03:12 | NUR ---
Patient is sleeping quietly on her left side.
--- NOTE | 2022-02-14 05:05 | NUR ---
Patient sleeping on her left side. No distress.
--- NOTE | 2022-02-14 05:09 | NUR ---
Patient sleeping. No distress.
[2022-02-14] MEDS: HYDROcodone/acetaminophen 5mg/325mg tablet PO PRN ×3 (05:31→19:14)
--- NOTE | 2022-02-14 08:30 | NUR ---
Pt. awake and eating breakfast at bedside. Pt. took all AM medication. Pt. c/o pain and given [place] 5/325 with AM medications.
[2022-02-14] MEDS: pantoprazole 40mg Tablet.DR PO SCH (08:47)
[2022-02-14] MEDS: gabapentin 100mg capsule PO SCH ×3 (08:47→20:29)
[2022-02-14] MEDS: furosemide 20MG tablet PO SCH (08:47)
[2022-02-14] MEDS: lisinopril 10 MG tablet PO SCH (08:48)
[2022-02-14] MEDS: montelukast 10mg tablet PO SCH (08:48)
[2022-02-14] MEDS: lactose-reduced food (Ensure Enlive) - 237ml bottle PO SCH ×3 (08:55→18:00)
--- NOTE | 2022-02-14 10:30 | NUR ---
Pt. asleep in bed in supine position. normal rate and rhythm of respirations observed.
[2022-02-14] MEDS: ibuprofen tablet 400 MG TABLET PO PRN ×2 (10:57→19:14)
[2022-02-14] MEDS: clonazePAM 1mg tablet PO PRN ×2 (10:57→20:29)
--- NOTE | 2022-02-14 10:57 | NUR ---
Pt. c/o of anxiety and received Klonopin 1mg and Motrin 400mg for generalized pain rated 6/10
--- NOTE | 2022-02-14 12:30 | NUR ---
Pt. awake and resting in bed. Normal rate and rhythm of respirations noted.
--- NOTE | 2022-02-14 13:26 | NUR ---
Patient awoke for 1300 hour medication and then returned to sleep.
--- NOTE | 2022-02-14 15:10 | NUR ---
Patient sleeping, no signs of any distress.
--- NOTE | 2022-02-14 15:12 | NUR ---
Patient sleeping on her left side. No signs of any distress.
--- NOTE | 2022-02-14 17:43 | NUR ---
Patient is up to void with assist to bathroom.
--- NOTE | 2022-02-14 19:23 | NUR ---
Patient given Rx med's for generalized pain.
[2022-02-14] MEDS: olanzapine 10mg tablet PO SCH (20:29)
--- NOTE | 2022-02-14 21:37 | NUR ---
Patient sleeping with her knees flexed.
--- NOTE | 2022-02-14 23:23 | NUR ---
Patient sleeping quietly, low fowlers position.
--- NOTE | 2022-02-15 00:19 | NUR ---
Patient is awake, sitting quietly at bedside.
[2022-02-15] MEDS: olanzapine 10mg tablet PO SCH ×2 (03:15→21:00)
[2022-02-15] MEDS: HYDROcodone/acetaminophen 5mg/325mg tablet PO PRN ×3 (04:15→23:54)
--- NOTE | 2022-02-15 05:48 | NUR ---
Patient sleeping quietly.
--- NOTE | 2022-02-15 07:00 | NUR ---
Received pt sleeping peacefully without distress.
[2022-02-15] MEDS: lactose-reduced food (Ensure Enlive) - 237ml bottle PO SCH ×3 (08:00→18:00)
--- NOTE | 2022-02-15 09:00 | NUR ---
Pt awoke for breakfast and was asssited to the bathroom. Pt requested klonopin for anxiety.
[2022-02-15] MEDS: furosemide 20MG tablet PO SCH (09:09)
[2022-02-15] MEDS: gabapentin 100mg capsule PO SCH ×3 (09:09→21:49)
[2022-02-15] MEDS: lisinopril 10 MG tablet PO SCH (09:10)
[2022-02-15] MEDS: montelukast 10mg tablet PO SCH (09:10)
[2022-02-15] MEDS: pantoprazole 40mg Tablet.DR PO SCH (09:10)
[2022-02-15] MEDS: clonazePAM 1mg tablet PO PRN ×2 (09:17→18:29)
--- NOTE | 2022-02-15 11:00 | NUR ---
Pt requested norco for pain. It was time yet initially and pt remained calm. Pt given norco when due. Pt polite and cooperative.
--- NOTE | 2022-02-15 13:00 | NUR ---
Pt up for lunch and another assisted trip to the bathroom.
--- NOTE | 2022-02-15 15:00 | NUR ---
Pt lying in bed, sleeping without complaints.
--- NOTE | 2022-02-15 17:00 | NUR ---
Pt requesting her nighttime medications and thought she had just had dinner. Pt reoriented to time of day.
[2022-02-15] MEDS: OLANZapine 5mg rapidly disint. tablet PO PRN (18:29)
[2022-02-15] MEDS: ibuprofen tablet 400 MG TABLET PO PRN (18:30)
--- NOTE | 2022-02-15 20:21 | NUR ---
Patient sitting at bedside. She requested pain and anxiety med's. She is cooperative. Klonopin and Motrin given. Patient is in view from nurses station.
--- NOTE | 2022-02-15 20:22 | NUR ---
Patient is sleeping quietly in a mid fowlers position at this time. In view from nurses station.
--- NOTE | 2022-02-15 21:03 | NUR ---
Patient is up to bathroom with assist. Patient voided. She was assisted to the sink and handwashing was completed. Patient guided back to bed.
--- NOTE | 2022-02-15 21:51 | NUR ---
Patient is sleeping quietly. Low fowlers position.
--- NOTE | 2022-02-15 23:57 | NUR ---
Patient awoke with her chronic pain. She was repositioned in bed and given a [place].
--- NOTE | 2022-02-16 00:48 | NUR ---
Patient awoke, ate a sandwich, she returned to bed and sleep.
--- NOTE | 2022-02-16 02:07 | NUR ---
Patient assisted to bathroom to void. She now sits up at bedside. No complaints.
--- NOTE | 2022-02-16 03:01 | NUR ---
Patient requested an ensure. It was noted that patients scrub bottoms were off her and on the bed. When the patient was requested to put the scrub bottoms back on she replied no. "I'm not walking around naked, I have a blanket covering me."
--- NOTE | 2022-02-16 03:18 | NUR ---
Patients Zyprexa was administered as patient requested. She expressed anxiety and inability to sleep. See adm note on NOV.
--- NOTE | 2022-02-16 06:55 | NUR ---
Pt presents slightly irritated. Pt is wanting her morning medications. Pt was given a cup of coffee and told her AM medications will be administered shortly.
[2022-02-16] MEDS: pantoprazole 40mg Tablet.DR PO SCH (07:11)
[2022-02-16] MEDS: montelukast 10mg tablet PO SCH (07:11)
[2022-02-16] MEDS: ibuprofen tablet 400 MG TABLET PO PRN ×2 (07:11→15:51)
[2022-02-16] MEDS: clonazePAM 1mg tablet PO PRN ×2 (07:11→20:46)
[2022-02-16] MEDS: gabapentin 100mg capsule PO SCH ×3 (07:11→20:46)
[2022-02-16] MEDS: furosemide 20MG tablet PO SCH (07:11)
[2022-02-16] MEDS: lisinopril 10 MG tablet PO SCH (07:17)
--- NOTE | 2022-02-16 07:24 | NUR ---
Pt seems to be in a better mood. Pt is sitting on side of bed when AM medications were given. Addendum: 02/16/22 at 0900 by ANGELICA Administered PRN Motrin 400mg for reported back pain 03/01.
[2022-02-16] MEDS: lactose-reduced food (Ensure Enlive) - 237ml bottle PO SCH ×3 (08:43→18:23)
--- NOTE | 2022-02-16 08:56 | NUR ---
Pt sitting on side of bed, requested "something for pain." Pt reports 9/10 pain "its my whole spine, damnit." Administered pt's PRN [place], as 0700 Motrin 400mg was not effective.
[2022-02-16] MEDS: HYDROcodone/acetaminophen 5mg/325mg tablet PO PRN ×2 (08:59→16:49)
--- NOTE | 2022-02-16 11:02 | NUR ---
Pt resting comfortably, respirations even and unlabored.
--- NOTE | 2022-02-16 13:00 | NUR ---
Pt sitting up eating her lunch. No distress noted.
--- NOTE | 2022-02-16 15:05 | NUR ---
Pt sleeping comfortably, respirations even and unlabored.
--- NOTE | 2022-02-16 16:03 | NUR ---
Pt up to the bathroom, with assist.
--- NOTE | 2022-02-16 18:54 | NUR ---
Patient up to bathroom with assist. Loose BM, patient had defecated in her scrubs and socks. Patient cleaned and given fresh clothing. Patient continues to exhibit lack of caring about her condition.
[2022-02-16] MEDS: olanzapine 10mg tablet PO SCH (20:45)
--- NOTE | 2022-02-16 21:03 | NUR ---
Patient is medication compliant. Up to restroom with assist. No distress. Patient is cooperative at this time.
--- NOTE | 2022-02-16 21:19 | NUR ---
Patient exhibits a labile delusional outburst. The patient then walks away from bed and was directed back.
[2022-02-16] MEDS ORDERED: Melatonin 3mg tablet PO ONE (22:26)
[2022-02-16] MEDS: OLANZapine 5mg rapidly disint. tablet PO PRN (22:26)
--- NOTE | 2022-02-16 22:38 | NUR ---
Melatonin 3 mg given for sleep.
--- NOTE | 2022-02-16 23:43 | NUR ---
Patient will be given Benadryl 50 mg PO for her insomnia.
[2022-02-16] MEDS ORDERED: diphenhydrAMINE 25mg capsule PO ONE (23:45)
--- NOTE | 2022-02-17 01:22 | NUR ---
Patient is awake but less labile and vocal.
--- NOTE | 2022-02-17 01:31 | NUR ---
Patient is up to the bathroom with assist to void.
[2022-02-17] MEDS: HYDROcodone/acetaminophen 5mg/325mg tablet PO PRN ×3 (02:46→12:49)
--- NOTE | 2022-02-17 02:54 | NUR ---
Patient is awake, using profanity. She is resistant to sleep. Haldol 5 mg will be given PO.
[2022-02-17] MEDS ORDERED: haloperidol 5mg tablet PO ONE (02:55)
--- NOTE | 2022-02-17 03:49 | NUR ---
Patient is finally sleeping!
--- NOTE | 2022-02-17 05:16 | NUR ---
Patient is sleeping well in a supine position. Good color. No distress.
--- NOTE | 2022-02-17 06:45 | NUR ---
Patient sleeping supine. No distress observed. Continue to monitor.
--- NOTE | 2022-02-17 08:20 | NUR ---
Patient eating breakfast. No distress observed. Continue to monitor.
[2022-02-17] MEDS: pantoprazole 40mg Tablet.DR PO SCH (08:30)
[2022-02-17] MEDS: gabapentin 100mg capsule PO SCH ×3 (08:30→20:50)
[2022-02-17] MEDS: montelukast 10mg tablet PO SCH (08:30)
[2022-02-17] MEDS: furosemide 20MG tablet PO SCH (08:30)
[2022-02-17] MEDS: lisinopril 10 MG tablet PO SCH (08:31)
[2022-02-17] MEDS: lactose-reduced food (Ensure Enlive) - 237ml bottle PO SCH ×3 (08:31→18:10)
[2022-02-17] MEDS: clonazePAM 1mg tablet PO PRN (08:35)
--- NOTE | 2022-02-17 10:11 | NUR ---
Patient sleeping on left side. No distress observed. Continue to monitor.
--- NOTE | 2022-02-17 11:22 | NUR ---
Patient ambulatory to BR with Tech at side, steady gait. No distress observed. Continue to monitor.
--- NOTE | 2022-02-17 12:17 | NUR ---
RN gave patient her lunch. Patient attempted to eat but stated she was having problems swallowing. RN asked if she wanted RN to change her diet to "Pureed". Patient stated no, she doesn't want pureed. RN gave her a Ensure drink that was unopened in the fridge. Patient drank that. Continue to monitor.
--- NOTE | 2022-02-17 14:09 | NUR ---
Patient sleeping supine. No distress observed. Continue to monitor.
--- NOTE | 2022-02-17 16:18 | NUR ---
Patient sleeping on right side. No distress observed. Continue to monitor.
--- NOTE | 2022-02-17 16:32 | NUR ---
Patient was ambulatory to with Tech. ThenMian and RN changed bad. Patient ambulatory back to bed with Tech. No distress observed.
--- NOTE | 2022-02-17 17:26 | NUR ---
Patient sleeping with some snoring respirations. No distress observed. Continue to monitor.
--- NOTE | 2022-02-17 19:00 | NUR ---
Pt in bed and appears to be sleeping.
[2022-02-17] MEDS: OLANZAPINE 5 MG TABLET PO SCH (20:50)
--- NOTE | 2022-02-17 20:58 | NUR ---
Patient took evening medications W/O complications, Zyprexa increased from 10mg to 15mg.
--- NOTE | 2022-02-17 22:19 | NUR ---
Patient called nurse over and asked for a traqualizer, after explaining to the patient that she did not have a tranqualizer prescribed the patient yelled obscenities and started mumbling to herself in bed.
--- NOTE | 2022-02-17 23:04 | NUR ---
Patient appears to be sleeping at this time.
[2022-02-18] MEDS: HYDROcodone/acetaminophen 5mg/325mg tablet PO PRN ×2 (00:25→08:56)
--- NOTE | 2022-02-18 00:28 | NUR ---
Patient called out, "nurse." Patient reported pain 10/10 leg pain. pt given 5/325 [place]
--- NOTE | 2022-02-18 01:28 | NUR ---
Patient appears to be sleeping
--- NOTE | 2022-02-18 03:18 | NUR ---
The patient woke up to use the bathroom, now in bed laying down quietly.
--- NOTE | 2022-02-18 05:23 | NUR ---
The patient appears to be sleeping
--- NOTE | 2022-02-18 07:00 | NUR ---
Pt resting comfortably in low pate's position, respirations even and unlabored.
[2022-02-18] MEDS: lactose-reduced food (Ensure Enlive) - 237ml bottle PO SCH ×3 (07:53→18:07)
[2022-02-18] MEDS: clonazePAM 1mg tablet PO PRN (08:10)
[2022-02-18] MEDS: lisinopril 10 MG tablet PO SCH (08:10)
[2022-02-18] MEDS: furosemide 20MG tablet PO SCH (08:11)
[2022-02-18] MEDS: gabapentin 100mg capsule PO SCH ×3 (08:11→20:05)
[2022-02-18] MEDS: pantoprazole 40mg Tablet.DR PO SCH (08:11)
[2022-02-18] MEDS: montelukast 10mg tablet PO SCH (08:11)
--- NOTE | 2022-02-18 08:55 | NUR ---
Migdalia cardona in [facility] - 02/18/22 at 0904 by ANGELICA [facility] at bedside.
--- NOTE | 2022-02-18 09:03 | NUR ---
Pt received PRN [place] from break nurse and is now resting comfortably, respirations even and unlabored.
--- NOTE | 2022-02-18 11:05 | NUR ---
Pt sitting on side of bed drinking coffe and eating her muffin from breakfast.
--- NOTE | 2022-02-18 13:02 | NUR ---
Pt back to sleep after eating 100% of lunch, respirations even and unlabored.
--- NOTE | 2022-02-18 15:00 | NUR ---
Pt resting comfortably, respirations even and unlabored.
--- NOTE | 2022-02-18 17:08 | NUR ---
Pt resting comfortably with sheet pulled over her, respirations even and unlabored.
--- NOTE | 2022-02-18 19:50 | NUR ---
Assisted to and fro bathroom and back in bed. No acute distress, no behaviors at this time, will cont to monitor.
[2022-02-18] MEDS: OLANZAPINE 5 MG TABLET PO SCH (20:04)
--- NOTE | 2022-02-19 00:46 | NUR ---
PT PROVIDED SANDWICH
[2022-02-19] MEDS: HYDROcodone/acetaminophen 5mg/325mg tablet PO PRN ×4 (02:13→22:01)
[2022-02-19] MEDS: OLANZapine 5mg rapidly disint. tablet PO PRN ×2 (02:13→23:05)
--- NOTE | 2022-02-19 03:00 | NUR ---
PT GIVEN PRN ZYPREXA AND HYDROCODONE FOR LEG PAIN AND AGITATION
--- NOTE | 2022-02-19 06:46 | NUR ---
PT LAYING IN BED AWAKE. NO REQUESTS AT THIS TIME.
[2022-02-19] MEDS: gabapentin 100mg capsule PO SCH ×3 (07:49→20:24)
[2022-02-19] MEDS: clonazePAM 1mg tablet PO PRN ×2 (07:49→15:55)
[2022-02-19] MEDS: pantoprazole 40mg Tablet.DR PO SCH (07:49)
[2022-02-19] MEDS: furosemide 20MG tablet PO SCH (07:49)
[2022-02-19] MEDS: montelukast 10mg tablet PO SCH (07:49)
[2022-02-19] MEDS: lisinopril 10 MG tablet PO SCH (07:50)
[2022-02-19] MEDS: lactose-reduced food (Ensure Enlive) - 237ml bottle PO SCH ×3 (07:57→18:47)
--- NOTE | 2022-02-19 10:34 | NUR ---
PT LYING IN BED AWAKE. NO DISTRESS NOTED. WILL CONTINUE TO MONITOR.
--- NOTE | 2022-02-19 12:25 | NUR ---
PT EATING LUNCH. NO DISTRESS
--- NOTE | 2022-02-19 14:46 | NUR ---
pt resting in bed with eyes closed. no distress noted.
--- NOTE | 2022-02-19 17:16 | NUR ---
pt lying in bed resting. had prn meds. no distress noted.
--- NOTE | 2022-02-19 20:05 | NUR ---
pt is sitting up in bed eating. no distress at this time. will continue to monitor.
[2022-02-19] MEDS: OLANZAPINE 5 MG TABLET PO SCH (20:24)
--- NOTE | 2022-02-19 22:03 | NUR ---
raquel pulled and wasted. new one time order for ativan instead.
[2022-02-19] MEDS ORDERED: LORazepam 1 MG tablet PO ONE (22:05)
--- NOTE | 2022-02-20 06:15 | NUR ---
Received report from RADHA Overton. Pt. asleep in bed. Noted rise and fall of chest.
--- NOTE | 2022-02-20 06:44 | NUR ---
Pt. assissted to bathroom, pt. legs feeling weak. Wheelchair utilized.
--- NOTE | 2022-02-20 07:31 | NUR ---
Pt. complaining of chest pain, states it is sharp in nature and located below her heart. EKG obtained resulting in normal sinus rhythm. MD notified and reviewed EKG. No new orders at this time. HR 60, RR 16.
[2022-02-20] MEDS: pantoprazole 40mg Tablet.DR PO SCH (08:09)
[2022-02-20] MEDS: furosemide 20MG tablet PO SCH (08:10)
[2022-02-20] MEDS: gabapentin 100mg capsule PO SCH ×3 (08:10→20:26)
[2022-02-20] MEDS: montelukast 10mg tablet PO SCH (08:11)
[2022-02-20] MEDS: lisinopril 10 MG tablet PO SCH (08:12)
[2022-02-20] MEDS: lactose-reduced food (Ensure Enlive) - 237ml bottle PO SCH ×3 (08:14→17:56)
[2022-02-20] MEDS: HYDROcodone/acetaminophen 5mg/325mg tablet PO PRN ×2 (08:31→20:24)
--- NOTE | 2022-02-20 08:46 | NUR ---
Medications administered, PRN norco as well for c/o back pain. No c/o chest pain. Breakfast ate at bedside with set-up assistance from nurse.
--- NOTE | 2022-02-20 09:20 | NUR ---
Pt. sleeping on back, breath sounds heard.
--- NOTE | 2022-02-20 10:31 | NUR ---
Pt. asleep on her right side, noted breath sounds heard.
--- NOTE | 2022-02-20 12:17 | NUR ---
Pt. lunch set up at bedside. Pt eating at this time.
--- NOTE | 2022-02-20 12:43 | NUR ---
WOC assessment for toe nail trim Pt is asleep upon arrival to unit but wakes to agree to have her nails trimmed. She declined to move to have her skin assessment done. Feet are dry, nails are thick and partially over grown the nail beds are very dry. Nails trimmed to both feet, feet cleansed then placed lotion to them both. She tolerated well. Report to primary nurse. Pt will not be followed by WOC unless need arises at which time nursing to generate wound consult.
--- NOTE | 2022-02-20 14:00 | NUR ---
Pt. supine resting with eyes closed. Noted rise and fall of chest.
--- NOTE | 2022-02-20 15:00 | NUR ---
Patient sleeping, noted breath sounds heard.
--- NOTE | 2022-02-20 15:44 | NUR ---
Pt utilizing bathroom. One person stand by assist.
--- NOTE | 2022-02-20 17:16 | NUR ---
Pt. asleep on left side, noted rise and fall of chest.
[2022-02-20] MEDS: clonazePAM 1mg tablet PO PRN (20:24)
[2022-02-20] MEDS: OLANZAPINE 5 MG TABLET PO SCH (20:26)
--- NOTE | 2022-02-20 20:37 | NUR ---
Patient was received at 1825. Patient was found sleeping in bed. Nurse was told in report that patient had been complaining of chest pain earlier in the day. Nurse got blood pressure and pulse on patient at beginning of shift. bp 86/60, p74. Patient woke up and was assisted to restroom before returning to bed. Patient woke up again an hour later and again had to be guided to rest room. Patient started yelling for pain medication. Patient was given all night medications including prn norco and klonopin. Patient took all medications without issue and returned to sleep.
--- NOTE | 2022-02-20 22:30 | NUR ---
Patient currently resting quietly. Patient was assisted to restroom and then back to bed.
--- NOTE | 2022-02-21 00:30 | NUR ---
Patient observed sleeping, breaths are even and unlabored
--- NOTE | 2022-02-21 02:16 | NUR ---
Patient has awaken asking for another norco. Patient has 20 mins until she can have another one.
[2022-02-21] MEDS: HYDROcodone/acetaminophen 5mg/325mg tablet PO PRN ×3 (02:26→18:34)
--- NOTE | 2022-02-21 04:30 | NUR ---
Patient continues to ask for prn medication after it has already been give. Patient has been redirected with snacks until she has fallen back asleep.
--- NOTE | 2022-02-21 07:00 | NUR ---
Pt resting on her bed. She appears to be asleep.
--- NOTE | 2022-02-21 08:30 | NUR ---
Pt up to the restroom. Linens were changed and bedside cleaned by EVS. Pt ate her breakfast took her medications. She requested PRN [place] and Klonopin. Both administered.
[2022-02-21] MEDS: gabapentin 100mg capsule PO SCH ×3 (08:40→21:05)
[2022-02-21] MEDS: montelukast 10mg tablet PO SCH (08:40)
[2022-02-21] MEDS: furosemide 20MG tablet PO SCH (08:40)
[2022-02-21] MEDS: pantoprazole 40mg Tablet.DR PO SCH (08:40)
[2022-02-21] MEDS: lactose-reduced food (Ensure Enlive) - 237ml bottle PO SCH ×3 (08:42→18:35)
[2022-02-21] MEDS: lisinopril 10 MG tablet PO SCH (08:42)
[2022-02-21] MEDS: clonazePAM 1mg tablet PO PRN ×2 (08:49→18:35)
--- NOTE | 2022-02-21 09:03 | NUR ---
Pt is now resting and calm.
--- NOTE | 2022-02-21 10:44 | NUR ---
Pt observed on her bed on her right side with her eyes closed. Pt appears to be asleep. RR even and unlabored.
--- NOTE | 2022-02-21 12:35 | NUR ---
Pt up eating her lunch. She is calm and cooperative with staff and others.
--- NOTE | 2022-02-21 14:22 | NUR ---
Pt observed resting with her eyes closed. She appears to be asleep. RR even and unlabored.
--- NOTE | 2022-02-21 16:40 | NUR ---
Pt continues to appear asleep. RR even and unlabored.
--- NOTE | 2022-02-21 17:54 | NUR ---
Staff assisted pt to the BR and back to her bed. Dinner served. She is calm and cooperative with staff. Thanked staff for "helping me."
--- NOTE | 2022-02-21 18:30 | NUR ---
Assumed patient care. Patient is awake and cooperative.
--- NOTE | 2022-02-21 20:00 | NUR ---
Patient is awake, sitting up in bed. No distress.
[2022-02-21] MEDS: OLANZAPINE 5 MG TABLET PO SCH (21:05)
--- NOTE | 2022-02-21 22:41 | NUR ---
Patient is sitting up in bed. No distress. In view from nurses station.
--- NOTE | 2022-02-21 23:51 | NUR ---
Patient is out of bed. States she is stretching her legs. Patient returns to bed without problem.
--- NOTE | 2022-02-22 01:55 | NUR ---
Patient remains awake, sitting at bedside.
[2022-02-22] MEDS ORDERED: haloperidol 5mg tablet PO ONE (02:00)
[2022-02-22] MEDS ORDERED: diphenhydrAMINE 25mg capsule PO ONE (02:00)
--- NOTE | 2022-02-22 02:22 | NUR ---
PO Benadryl 50 mg and PO Haldol 5 mg given to assist patient who is requesting sleep medication and who is resistant to sleep. This Rx was given after consult with MD and a previous recent history of requiring this combination. Patient is medication compiant.
--- NOTE | 2022-02-22 03:34 | NUR ---
Patient is now sleeping in a low fowlers position with her knees flexed.
[2022-02-22] MEDS: OLANZapine 5mg rapidly disint. tablet PO PRN (04:57)
[2022-02-22] MEDS: ibuprofen tablet 400 MG TABLET PO PRN ×3 (04:57→23:42)
[2022-02-22] MEDS: HYDROcodone/acetaminophen 5mg/325mg tablet PO PRN ×3 (04:58→19:48)
--- NOTE | 2022-02-22 04:58 | NUR ---
Patient given [place], Motrin, and Zyprexa Zydis for her pain and labile outbursts. Patient is compliant with taking medications.
--- NOTE | 2022-02-22 06:05 | NUR ---
Patient is sitting up in bed, feet on the floor. She has calmed, no outbursts now. She still looks defiant to sleep.
[2022-02-22] MEDS: lactose-reduced food (Ensure Enlive) - 237ml bottle PO SCH ×3 (08:15→18:00)
[2022-02-22] MEDS: gabapentin 100mg capsule PO SCH ×3 (08:15→19:47)
[2022-02-22] MEDS: furosemide 20MG tablet PO SCH (08:16)
[2022-02-22] MEDS: pantoprazole 40mg Tablet.DR PO SCH (08:16)
[2022-02-22] MEDS: montelukast 10mg tablet PO SCH (08:16)
[2022-02-22] MEDS: lisinopril 10 MG tablet PO SCH (08:18)
--- NOTE | 2022-02-22 18:38 | NUR ---
Pt up to use the bathroom
[2022-02-22] MEDS: clonazePAM 1mg tablet PO PRN (19:47)
[2022-02-22] MEDS: OLANZAPINE 5 MG TABLET PO SCH (19:47)
--- NOTE | 2022-02-22 22:56 | NUR ---
Pt up to use the restoom
--- NOTE | 2022-02-22 23:48 | NUR ---
PT request pain medication for ankles, motrin PRN given
--- NOTE | 2022-02-23 01:00 | NUR ---
Pt is up to the bathroom, then has a sandwhich for snack
[2022-02-23] MEDS: acetaminophen 325mg tablet PO PRN ×2 (02:05→16:26)
--- NOTE | 2022-02-23 03:00 | NUR ---
Pt stands up to stretch her legs stating "my legs are sore, I had an x-ray and they are broken in 6 places, and everytime I move they brake more."
--- NOTE | 2022-02-23 05:30 | NUR ---
Pt sitting up in bed eating a fruit cup
--- NOTE | 2022-02-23 07:07 | NUR ---
Received pt. sleeping at the beginnig of the shift, rr are even and unlabored.
[2022-02-23] MEDS: gabapentin 100mg capsule PO SCH ×2 (07:57→12:36)
[2022-02-23] MEDS: pantoprazole 40mg Tablet.DR PO SCH (07:57)
[2022-02-23] MEDS: montelukast 10mg tablet PO SCH (07:58)
[2022-02-23] MEDS: furosemide 20MG tablet PO SCH (08:01)
[2022-02-23] MEDS: lisinopril 10 MG tablet PO SCH (08:01)
[2022-02-23] MEDS: lactose-reduced food (Ensure Enlive) - 237ml bottle PO SCH ×4 (08:02→18:03)
[2022-02-23] MEDS: clonazePAM 1mg tablet PO PRN ×2 (08:04→19:59)
[2022-02-23] MEDS: HYDROcodone/acetaminophen 5mg/325mg tablet PO PRN ×2 (08:04→23:18)
--- NOTE | 2022-02-23 08:11 | NUR ---
Pt. is sitting up eating breakfast at this time, set up help was provided by staff. PRN [place] and Clonazepam was administered per report of generalized pain and anxiety.
--- NOTE | 2022-02-23 10:10 | NUR ---
Pt. sat up to eat breakfast and afterwards returned back to sleep. She appears to be resting comfortably, no s/s of distress noted.
--- NOTE | 2022-02-23 11:02 | NUR ---
Pt. up to use the bathroom at this time, she ambulates with one-person assistance r/t generalized weakness and chronic difficulty with vision.
--- NOTE | 2022-02-23 12:08 | NUR ---
Pt. is sleeping in bed at this time on her left side, rr are even and unlabored.
--- NOTE | 2022-02-23 13:54 | NUR ---
Pt. is laying in bed sleeping at this time, laying on her right side.
--- NOTE | 2022-02-23 15:56 | NUR ---
Pt. is sitting up on the side of her bed at this time.
[2022-02-23] MEDS: ibuprofen tablet 400 MG TABLET PO PRN (16:26)
--- NOTE | 2022-02-23 17:55 | NUR ---
Pt. is laying on her back sleeping with HOB elevated, rr are even and unlabored.
[2022-02-23] MEDS: OLANZAPINE 5 MG TABLET PO SCH (21:09)
[2022-02-24] MEDS: ibuprofen tablet 400 MG TABLET PO PRN (02:20)
[2022-02-24] MEDS: HYDROcodone/acetaminophen 5mg/325mg tablet PO PRN ×3 (05:26→17:43)
[2022-02-24] MEDS: pantoprazole 40mg Tablet.DR PO SCH (07:51)
[2022-02-24] MEDS: furosemide 20MG tablet PO SCH (07:52)
[2022-02-24] MEDS: montelukast 10mg tablet PO SCH (07:52)
[2022-02-24] MEDS: clonazePAM 1mg tablet PO PRN ×2 (07:52→20:39)
[2022-02-24] MEDS: lisinopril 10 MG tablet PO SCH (07:55)
[2022-02-24] MEDS: lactose-reduced food (Ensure Enlive) - 237ml bottle PO SCH ×3 (08:46→18:35)
[2022-02-24] MEDS: OLANZapine 5mg rapidly disint. tablet PO PRN (16:34)
--- NOTE | 2022-02-24 18:40 | NUR ---
Received pt in main ER bed 13, pt sleeping food tray at the bedside.
[2022-02-24] MEDS: OLANZAPINE 5 MG TABLET PO SCH (20:39)
--- NOTE | 2022-02-24 21:40 | NUR ---
Pt up to bedside commode and is currently sitting up in bed drinking her ensure.
[2022-02-24] MEDS ORDERED: LORazepam 1 MG tablet PO ONE (22:40)
--- NOTE | 2022-02-24 23:01 | NUR ---
Pt up to the bedside commode, requesting sleep aid. Provider ordered 2MG ativan, administered. Pt currently lying in bed talking to herself.
--- NOTE | 2022-02-25 01:41 | NUR ---
Pt has been awake, currently eating yogurt.
--- NOTE | 2022-02-25 02:30 | NUR ---
Pt had small bowel movement, went back to bed and appears to be sleeping.
--- NOTE | 2022-02-25 04:11 | NUR ---
Pt awake lying in bed talking to herself.
--- NOTE | 2022-02-25 06:45 | NUR ---
PT RESTING WITH EYES CLOSED, EFFORTLESS RESPIRATIONS OBSERVED.
[2022-02-25] MEDS: lactose-reduced food (Ensure Enlive) - 237ml bottle PO SCH ×3 (08:15→18:48)
--- NOTE | 2022-02-25 08:45 | NUR ---
PT INCONT OF URINE. PTS BED LINEN CHANGED AND PT ASSISTED WITH CLEANING UP BY SITTER AND NOW IN CLEAN DRY SCRUB BOTTOMS AND GOWN.
[2022-02-25] MEDS: furosemide 20MG tablet PO SCH (09:40)
[2022-02-25] MEDS: ibuprofen tablet 400 MG TABLET PO PRN (09:40)
[2022-02-25] MEDS: lisinopril 10 MG tablet PO SCH (09:40)
[2022-02-25] MEDS: montelukast 10mg tablet PO SCH (09:40)
[2022-02-25] MEDS: pantoprazole 40mg Tablet.DR PO SCH (09:40)
[2022-02-25] MEDS: clonazePAM 1mg tablet PO PRN ×2 (09:40→20:22)
[2022-02-25] MEDS: HYDROcodone/acetaminophen 5mg/325mg tablet PO PRN ×2 (09:41→18:43)
--- NOTE | 2022-02-25 10:00 | NUR ---
PT REMAINS CALM AND COOPERATIVE.
--- NOTE | 2022-02-25 19:23 | NUR ---
The patient is yelling "get out!" and noise but the unit is quiet. She appears to be responding to internal stimuli
[2022-02-25] MEDS: OLANZAPINE 5 MG TABLET PO SCH (20:22)
--- NOTE | 2022-02-25 20:49 | NUR ---
The patient appears to be sleeping
--- NOTE | 2022-02-25 23:19 | NUR ---
The patient up to use the bathroom with assistance.
[2022-02-26] MEDS: HYDROcodone/acetaminophen 5mg/325mg tablet PO PRN ×3 (00:23→18:58)
[2022-02-26] MEDS: OLANZapine 5mg rapidly disint. tablet PO PRN (00:23)
--- NOTE | 2022-02-26 00:26 | NUR ---
The patient is very irritable and is talking angerily to people who are not there.
[2022-02-26] MEDS: ibuprofen tablet 400 MG TABLET PO PRN (01:11)
[2022-02-26] MEDS: acetaminophen 325mg tablet PO PRN (01:11)
--- NOTE | 2022-02-26 01:12 | NUR ---
The patient is awake and asking for tylenol and aspirin for unrelieved generalized pain and tylenol and motrin given.
--- NOTE | 2022-02-26 02:05 | NUR ---
The patient appears to be sleeping
--- NOTE | 2022-02-26 03:43 | NUR ---
The patient appears to be sleeping
--- NOTE | 2022-02-26 05:03 | NUR ---
The patient appears to be sleeping
[2022-02-26] MEDS: lisinopril 10 MG tablet PO SCH (07:36)
[2022-02-26] MEDS: furosemide 20MG tablet PO SCH (07:36)
[2022-02-26] MEDS: lactose-reduced food (Ensure Enlive) - 237ml bottle PO SCH ×3 (07:40→17:55)
[2022-02-26] MEDS: pantoprazole 40mg Tablet.DR PO SCH (07:40)
[2022-02-26] MEDS: montelukast 10mg tablet PO SCH (07:40)
--- NOTE | 2022-02-26 08:45 | NUR ---
The patient is sitting quietly at the bedside eating her breakfast.
--- NOTE | 2022-02-26 11:23 | NUR ---
The patient appears to be sleeping
--- NOTE | 2022-02-26 13:08 | NUR ---
The patient has been sleepy today. She did get up and use the bathroom several times and she did sit on the side of her bed and ate her lunch. She has not been observed responding to voices.
--- NOTE | 2022-02-26 14:24 | NUR ---
resting comfortably on right side, respirations equal and nonlabored.
--- NOTE | 2022-02-26 14:32 | NUR ---
The patient up to use the bathroom
--- NOTE | 2022-02-26 16:33 | NUR ---
The patient is awake and drinking decaff coffee
[2022-02-26] MEDS: clonazePAM 1mg tablet PO PRN (18:58)
[2022-02-26] MEDS: OLANZAPINE 5 MG TABLET PO SCH (18:58)
--- NOTE | 2022-02-26 19:09 | NUR ---
Patient is lying down on her bed attempting to fall asleep.
--- NOTE | 2022-02-26 20:46 | NUR ---
Patient is up using the bathroom.
--- NOTE | 2022-02-26 21:01 | NUR ---
Patient asked for and was provided a cup of coffee.
--- NOTE | 2022-02-26 22:11 | NUR ---
Patient up to the bathroom again.
--- NOTE | 2022-02-26 23:17 | NUR ---
Patient appears to be asleep.
--- NOTE | 2022-02-27 00:46 | NUR ---
Patient in her room yelling for dinner, which was hours ago.
--- NOTE | 2022-02-27 04:55 | NUR ---
Patient is asleep in supine position. RR even and unlabored. No s/sx of distress.
[2022-02-27] MEDS: pantoprazole 40mg Tablet.DR PO SCH (07:32)
[2022-02-27] MEDS: montelukast 10mg tablet PO SCH (08:03)
[2022-02-27] MEDS: lisinopril 10 MG tablet PO SCH (08:04)
[2022-02-27] MEDS: furosemide 20MG tablet PO SCH (08:04)
[2022-02-27] MEDS: lactose-reduced food (Ensure Enlive) - 237ml bottle PO SCH ×3 (08:23→18:06)
[2022-02-27] MEDS: HYDROcodone/acetaminophen 5mg/325mg tablet PO PRN ×2 (08:27→14:54)
--- NOTE | 2022-02-27 14:01 | NUR ---
Pt laying on her right lateral side, respirations are even and unlabored. Pt's eyes are closed. Pt is in no acute distress.
[2022-02-27] MEDS: ibuprofen tablet 400 MG TABLET PO PRN (14:54)
[2022-02-27] MEDS ORDERED: HYDROcodone/acetaminophen 5mg/325mg tablet PO ONE (18:25)
--- NOTE | 2022-02-27 18:25 | NUR ---
The patient is reporting pain unrelieved by motrin and norco given earlier and MD made aware and orders received.
--- NOTE | 2022-02-27 19:44 | NUR ---
The patient is resting on the side of her bed. She ate approximately 50% of her dinner.
[2022-02-27] MEDS: clonazePAM 1mg tablet PO PRN (20:02)
[2022-02-27] MEDS: OLANZAPINE 5 MG TABLET PO SCH (20:02)
[2022-02-27] MEDS: acetaminophen 325mg tablet PO PRN (20:02)
--- NOTE | 2022-02-27 21:49 | NUR ---
The patient appears to be sleeping
--- NOTE | 2022-02-27 23:08 | NUR ---
The patient appears to be sleeping
--- NOTE | 2022-02-28 00:13 | NUR ---
The patient appears to be sleeping
[2022-02-28] MEDS: HYDROcodone/acetaminophen 5mg/325mg tablet PO PRN ×3 (01:23→18:31)
--- NOTE | 2022-02-28 01:24 | NUR ---
The patient awake and complained of genralized pain and norco given
--- NOTE | 2022-02-28 03:03 | NUR ---
The patient appears to be sleeping
--- NOTE | 2022-02-28 04:54 | NUR ---
The patient appears to be sleeping
[2022-02-28] MEDS: lisinopril 10 MG tablet PO SCH (08:00)
[2022-02-28] MEDS: ibuprofen tablet 400 MG TABLET PO PRN ×2 (08:16→18:30)
[2022-02-28] MEDS: furosemide 20MG tablet PO SCH (08:17)
[2022-02-28] MEDS: pantoprazole 40mg Tablet.DR PO SCH (08:17)
[2022-02-28] MEDS: lactose-reduced food (Ensure Enlive) - 237ml bottle PO SCH ×3 (08:17→18:28)
[2022-02-28] MEDS: montelukast 10mg tablet PO SCH (08:17)
--- NOTE | 2022-02-28 10:57 | NUR ---
Agricultural Equipment Salesperson here to see pt regarding her conservatorship
--- NOTE | 2022-02-28 19:23 | NUR ---
The patient has been resting on her bed. She sat up and ate her dinner and she was encouraged to drink all of her ensure. She appeared depressed and when asked about it she stated, "I'm just a little sad about somethings going on" She is upset about not being able to go home. She stated she has a court date on the and "I just want to go home"
--- NOTE | 2022-02-28 19:42 | NUR ---
Patient up to the bathroom and linens changed on her bed.
[2022-02-28] MEDS: clonazePAM 1mg tablet PO PRN (19:48)
[2022-02-28] MEDS: OLANZAPINE 5 MG TABLET PO SCH (19:49)
--- NOTE | 2022-02-28 20:40 | NUR ---
The patient appears to be sleeping
--- NOTE | 2022-02-28 22:05 | NUR ---
The patient up to use the bathroom
--- NOTE | 2022-02-28 23:40 | NUR ---
The patient appears to be sleeping
--- NOTE | 2022-03-01 01:33 | NUR ---
The patient is resting on her bed but awake
[2022-03-01] MEDS: HYDROcodone/acetaminophen 5mg/325mg tablet PO PRN ×4 (02:05→18:45)
--- NOTE | 2022-03-01 05:22 | NUR ---
The patient has been awake off and on throughout the night. She currently is up to use the bathroom
[2022-03-01] MEDS: furosemide 20MG tablet PO SCH (07:32)
[2022-03-01] MEDS: pantoprazole 40mg Tablet.DR PO SCH (07:32)
[2022-03-01] MEDS: lactose-reduced food (Ensure Enlive) - 237ml bottle PO SCH ×3 (07:32→18:01)
[2022-03-01] MEDS: montelukast 10mg tablet PO SCH (07:34)
[2022-03-01] MEDS: lisinopril 10 MG tablet PO SCH (08:00)
--- NOTE | 2022-03-01 08:40 | NUR ---
The patient is resting quietly on her bed. She is quiet and withdrawn. Her personal hygiene is poor.
--- NOTE | 2022-03-01 09:15 | NUR ---
Migdalia cardona in [facility] - 03/01/22 at 0915 by SARA The a
--- NOTE | 2022-03-01 09:15 | NUR ---
The patient up to use the bathroom
--- NOTE | 2022-03-01 10:13 | NUR ---
The patient is resting on her bed.
--- NOTE | 2022-03-01 11:05 | NUR ---
The patient is resting on her bed.
--- NOTE | 2022-03-01 11:31 | NUR ---
The patient is resting on her bed.
[2022-03-01] MEDS: ibuprofen tablet 400 MG TABLET PO PRN ×2 (12:16→20:52)
--- NOTE | 2022-03-01 12:16 | NUR ---
400mg of motrin accidently dropped on the floor, medication disposed of in medication waste bin. Pharmacy reordered 400mg of motrin which was administered.
--- NOTE | 2022-03-01 12:29 | NUR ---
Pt sitting up at the side of the bed eating lunch. Pt complains of 10/10 back pain. Pt medicated with [place] and Motrin. She denies any other complaints at this time.
[2022-03-01] MEDS: clonazePAM 1mg tablet PO PRN ×2 (12:46→20:52)
[2022-03-01] MEDS ORDERED: ibuprofen tablet 400 MG TABLET PO ONE (13:35)
--- NOTE | 2022-03-01 14:07 | NUR ---
Pt is laying on left lateral side, eyes are closed, respirations are even and unlabored.
--- NOTE | 2022-03-01 16:28 | NUR ---
Pt laying supine, eyes closed, respirations are even and unlabored.
--- NOTE | 2022-03-01 17:37 | NUR ---
Pt up to the restroom. Pt now sitting at the edge of bed eating snacks. Pt in no acute distress at this time.
--- NOTE | 2022-03-01 18:12 | NUR ---
Pt sitting up at the edge of the bed eating dinner.
[2022-03-01] MEDS: OLANZAPINE 5 MG TABLET PO SCH (20:51)
--- NOTE | 2022-03-01 23:15 | NUR ---
Patient keeps requesting snacks and was assisted to the commod. Patient currently resting quietly
[2022-03-02] MEDS: HYDROcodone/acetaminophen 5mg/325mg tablet PO PRN ×2 (00:53→20:11)
--- NOTE | 2022-03-02 01:35 | NUR ---
Patient woke up requesting pain medication. Patient was given prn norco at 0048. Patient continues to get up yelling and cursing at staff stating she has not gotten her pain medication. Patient will not believe nurse gave her the norco and instead keeps getting louder and louder. Patient keeps getting up out of bed threating to fall if we dont give her another pain medication.
--- NOTE | 2022-03-02 03:41 | NUR ---
Patient continues to get up asking for pain medication and sedatives. Patient argues with staff when they tell her she has already had everthing she can take. Nuse is looking for alternatives.
[2022-03-02] MEDS: ibuprofen tablet 400 MG TABLET PO PRN (05:24)
--- NOTE | 2022-03-02 05:46 | NUR ---
Patient continues to ask for medications. Patient was given prn ibuprofen 400mg. Patient becomes very upset when she can not have medications when she wants them. Patient began screaming and cursing at tech and nurses. Patient has also been observed responding to internal stimuli. Patient keeps cursing at the voices. Patient is now sleeping.
--- NOTE | 2022-03-02 07:00 | NUR ---
Received Pt in bed sleeping w/o distress.
[2022-03-02] MEDS: lactose-reduced food (Ensure Enlive) - 237ml bottle PO SCH ×3 (08:00→18:00)
--- NOTE | 2022-03-02 09:00 | NUR ---
Pt brought from main ER to EROF and placed in bed 25. Pt ate breakfast well and was cooperative with care and assistance.
[2022-03-02] MEDS: pantoprazole 40mg Tablet.DR PO SCH (09:57)
[2022-03-02] MEDS: montelukast 10mg tablet PO SCH (09:57)
[2022-03-02] MEDS: furosemide 20MG tablet PO SCH (09:57)
[2022-03-02] MEDS: lisinopril 10 MG tablet PO SCH (09:58)
--- NOTE | 2022-03-02 10:00 | NUR ---
Pt took AM meds w/o issue and returned to sleeping.
--- NOTE | 2022-03-02 13:00 | NUR ---
Pt up to walk and stretch. Pt ate lunch and is lying in bed resting.
--- NOTE | 2022-03-02 15:30 | NUR ---
Pt in bed resting. Pt got irritated with staff for telling her she was in the wrong bed.
[2022-03-02] MEDS: clonazePAM 1mg tablet PO PRN (16:53)
--- NOTE | 2022-03-02 17:15 | NUR ---
Pt requested klonopin for anxiety and was given to her. Pt in bed trying to be calm and rest.
--- NOTE | 2022-03-02 19:33 | NUR ---
The patient is quietly sitting on the side of her bed after eating her dinner
[2022-03-02] MEDS: OLANZAPINE 5 MG TABLET PO SCH (20:10)
--- NOTE | 2022-03-02 21:59 | NUR ---
The patient up to use the bathroom with assist
--- NOTE | 2022-03-03 01:11 | NUR ---
The patient appears to be sleeping
[2022-03-03] MEDS: HYDROcodone/acetaminophen 5mg/325mg tablet PO PRN ×3 (03:01→17:31)
[2022-03-03] MEDS: clonazePAM 1mg tablet PO PRN ×2 (03:01→23:18)
--- NOTE | 2022-03-03 03:56 | NUR ---
The patient appears to be sleeping
--- NOTE | 2022-03-03 05:25 | NUR ---
The patient is resting on her bed. She has been awake most of the night.
--- NOTE | 2022-03-03 06:30 | NUR ---
Received pt. sleeping at the beginning of the shift, rr are even and unlabored.
--- NOTE | 2022-03-03 08:30 | NUR ---
Pt. was awoken to eat her breakfast and encouraged to drink her Ensure however refused. She c/o generalized pain and PRN [place] was administered with effectiveness. Pt. continues to require minimal assistance from staff to ambulate to the bathroom r/t decreased eyesight.
[2022-03-03] MEDS: furosemide 20MG tablet PO SCH (08:50)
[2022-03-03] MEDS: montelukast 10mg tablet PO SCH (08:50)
[2022-03-03] MEDS: pantoprazole 40mg Tablet.DR PO SCH (08:50)
[2022-03-03] MEDS: lisinopril 10 MG tablet PO SCH (08:51)
[2022-03-03] MEDS: lactose-reduced food (Ensure Enlive) - 237ml bottle PO SCH ×4 (08:52→19:00)
--- NOTE | 2022-03-03 10:27 | NUR ---
Pt. is sleeping on her left side at this time, rr are even and unlabored.
--- NOTE | 2022-03-03 12:33 | NUR ---
Pt. was awoken by staff for lunch and assisted to the BR, she had an incontinent episode and her pants were changed with assistance from staff. She returned to bed and is eating lunch at this time.
--- NOTE | 2022-03-03 14:29 | NUR ---
Pt. continues to sleep at this time, laying on her back, rise and fall of chest noted.
--- NOTE | 2022-03-03 16:05 | NUR ---
Pt. up to use the BR and staff changed her bed and attempted to provide her with a bed bath, pt. became irritable and admantly refused stating, "I'm not taking a bath until the day before court!" Staff provided education to pt. that a bath may not be available at that time, and encouraged pt to allow staff to help her clean up. Pt. continued to be irritable and refused. She did allow her hair to be combed out, but refused to have her nails trimmed which are very long and dirty, will continue to provide encouragement.
--- NOTE | 2022-03-03 17:53 | NUR ---
Pt. is sitting up eating dinner at this time, she c/o chronic generalized pain and PRN [place] was administered. Will continue to monitor.
--- NOTE | 2022-03-03 19:00 | NUR ---
Patient is sleeping quietly, no distress.
--- NOTE | 2022-03-03 21:21 | NUR ---
This patient continues to sleep on her left side. Medications will be given when patient awakens.
[2022-03-03] MEDS: ibuprofen tablet 400 MG TABLET PO PRN (23:18)
[2022-03-03] MEDS: OLANZAPINE 5 MG TABLET PO SCH (23:18)
--- NOTE | 2022-03-04 01:06 | NUR ---
Patient is awake, exhibiting her nightime demands, coffee, etc. Patient is redirected to return to sleep.
--- NOTE | 2022-03-04 02:04 | NUR ---
Patient was up to the bathroom with guidance from Tech. The patient made profane comments that were unprovoked to the Tech. After voiding the patient was redirected back to bed.
--- NOTE | 2022-03-04 03:07 | NUR ---
Patient is awake, labile at times. Redirection is difficult.
[2022-03-04] MEDS: OLANZapine 5mg rapidly disint. tablet PO PRN (03:52)
[2022-03-04] MEDS: HYDROcodone/acetaminophen 5mg/325mg tablet PO PRN ×3 (03:53→20:32)
--- NOTE | 2022-03-04 04:02 | NUR ---
Patient complains of generalized pain, she remains labile, she request meds for anxiety. Rx meds (PRN's) given.
--- NOTE | 2022-03-04 05:10 | NUR ---
Patient is finally sleeping. No distress.
--- NOTE | 2022-03-04 05:30 | NUR ---
Patient awoke for vital signs then returned to sleep.
--- NOTE | 2022-03-04 06:05 | NUR ---
Patient transfered to bed 10 in the main ER.
[2022-03-04] MEDS: furosemide 20MG tablet PO SCH (08:14)
[2022-03-04] MEDS: pantoprazole 40mg Tablet.DR PO SCH (08:14)
[2022-03-04] MEDS: montelukast 10mg tablet PO SCH (08:14)
[2022-03-04] MEDS: clonazePAM 1mg tablet PO PRN ×2 (08:29→20:31)
[2022-03-04] MEDS: lisinopril 10 MG tablet PO SCH (08:30)
[2022-03-04] MEDS: lactose-reduced food (Ensure Enlive) - 237ml bottle PO SCH ×2 (13:27→18:00)
[2022-03-04 16:09] LABS: BASOPHILS % (AUTO) 0.5 % (0-1); EOSINOPHILS # (AUTO) 0.1 X10'3 (0-0.9); EOSINOPHILS % (AUTO) 1.6 % (0-6); HEMATOCRIT 38.3 % (35.0-45.0); HEMOGLOBIN 12.8 g/dl (12.0-16.0); MEAN CORPUSCULAR HEMOGLOBIN 26.4 PG (27.0-31.0); MEAN CORPUSCULAR HGB CONC 33.4 g/dL (33.0-36.5); MEAN CORPUSCULAR VOLUME 79.1 FL (78-98); MEAN PLATELET VOLUME 8.9 FL (7.4-10.4); MONOCYTES # (AUTO) 0.6 X10'3 (0-0.9); MONOCYTES % (AUTO) 10.8 % (2-12); NEUTROPHILS # (AUTO) 3.7 X10'3 (1.8-7.7); NEUTROPHILS % (AUTO) 69.1 % (42-75); PLATELET COUNT 170 X10'3 (140-440); RED BLOOD COUNT 4.85 X10'6 (4.20-5.60); RED CELL DISTRIBUTION WIDTH 16.9 % (11.5-14.5); WHITE BLOOD COUNT 5.4 X10'3 (4.5-11.0)
--- NOTE | 2022-03-04 16:45 | NUR ---
PPD skin test planted by [facility] [employer]. paper placed inside of pt binder.
[2022-03-04] MEDS ORDERED: tuberculin, purif. prot. deriv. 5 units/0.1ml ID ONE (16:50)
--- NOTE | 2022-03-04 18:25 | NUR ---
report to oleg hughes
--- NOTE | 2022-03-04 19:03 | NUR ---
Received patient in main ED, transferred to ED overflow with no problems. Patient resting comfortably in bed at this moment.
[2022-03-04] MEDS: OLANZAPINE 5 MG TABLET PO SCH (20:24)
--- NOTE | 2022-03-04 20:48 | NUR ---
The patient got up to use thye restroom, lead to restroom by staff. The patient then took evening meds and requested pain medications and kolonopin. Meds given w/o complications. Patient appears to be sleeping at this time.
--- NOTE | 2022-03-05 00:20 | NUR ---
The patient appears to be sleeping at this time.
[2022-03-05] MEDS: HYDROcodone/acetaminophen 5mg/325mg tablet PO PRN ×3 (01:43→19:16)
--- NOTE | 2022-03-05 02:24 | NUR ---
Patient got up to use bathroom, went back to bed. Lying down quietly at this time.
--- NOTE | 2022-03-05 04:27 | NUR ---
The pt appears to be sleeping at this time.
--- NOTE | 2022-03-05 05:08 | NUR ---
Patient got up to use restroom, pt taken back to bed after void.
--- NOTE | 2022-03-05 06:15 | NUR ---
Patient ambulatory to BR and directed to BR as patient was walking toward the nurses station. No distress observed. Continue to monitor.
--- NOTE | 2022-03-05 07:20 | NUR ---
Patient ambulatory to with Mable Pappas assisting. No distress observed. Continue to monitor.
[2022-03-05] MEDS: clonazePAM 1mg tablet PO PRN ×2 (07:59→19:17)
[2022-03-05] MEDS: lisinopril 10 MG tablet PO SCH (08:00)
[2022-03-05] MEDS: furosemide 20MG tablet PO SCH (08:00)
[2022-03-05] MEDS: lactose-reduced food (Ensure Enlive) - 237ml bottle PO SCH ×3 (08:02→18:03)
[2022-03-05] MEDS: montelukast 10mg tablet PO SCH (08:02)
[2022-03-05] MEDS: pantoprazole 40mg Tablet.DR PO SCH (08:02)
--- NOTE | 2022-03-05 08:14 | NUR ---
Patient eating breakfast. Patient oriented to tray with light on. No distress observed. Continue to monitor.
--- NOTE | 2022-03-05 10:11 | NUR ---
Patient sleeping supine. No distress observed. Continue to monitor.
--- NOTE | 2022-03-05 12:18 | NUR ---
Patient eating lunch. No distress observed. Continue to monitor.
--- NOTE | 2022-03-05 14:19 | NUR ---
Patient sleeping supine. No distress observed. Continue to monitor.
--- NOTE | 2022-03-05 15:27 | NUR ---
Patient has scheduled transportation with [facility] for 03/07/22 at 0800 to [facility] [address] [place] [address]
--- NOTE | 2022-03-05 16:12 | NUR ---
Patient sleeping. No distress observed. Continue to monitor.
--- NOTE | 2022-03-05 16:17 | NUR ---
Patient ambulatory to BR with RADHA Villafana assisting. No distress observed. Continue to monitor.
--- NOTE | 2022-03-05 18:02 | NUR ---
Patient eating dinner slowly. No distress observed. Continue to monitor.
--- NOTE | 2022-03-05 18:43 | NUR ---
Pt was sitting in bed getting her hair washed at change of shift, Pt complains "It was just washed a few days ago!" Pt requested assistance to the bathroom and was assisted. Pt is currently sitting on the side of her bed drinking juice.
[2022-03-05] MEDS: OLANZAPINE 5 MG TABLET PO SCH (20:00)
--- NOTE | 2022-03-05 22:42 | NUR ---
Pt is asleep appears to be resting comfortably rr even and unlabored
--- NOTE | 2022-03-06 00:11 | NUR ---
PT IS LAYING IN BED AWAKE, RR 16
--- NOTE | 2022-03-06 01:22 | NUR ---
PT UP TO USE THE RESTROOM AND RETURNED TO BED.
[2022-03-06] MEDS: OLANZapine 5mg rapidly disint. tablet PO PRN (03:41)
[2022-03-06] MEDS: acetaminophen 325mg tablet PO PRN (03:42)
--- NOTE | 2022-03-06 03:43 | NUR ---
PT AWAKE RESTLESS AND AGITATED GETTING IN AND OUT OF BED MULTIPLE TIMES AND WANDERING. PT YELLS OUT "I GOT A DAMN HEADACHE!" PT WAS GIVEN PRN TYLENOL AND ZYPREXA AND ASSISTED WITH POSITIONING HER PILLOW FOR HER IN BED.
--- NOTE | 2022-03-06 06:03 | NUR ---
PT LAYING IN BED EYES CLOSED RR EVEN AND UNLABORED
[2022-03-06] MEDS: pantoprazole 40mg Tablet.DR PO SCH (07:46)
[2022-03-06] MEDS: HYDROcodone/acetaminophen 5mg/325mg tablet PO PRN ×2 (07:46→18:11)
[2022-03-06] MEDS: montelukast 10mg tablet PO SCH (07:46)
[2022-03-06] MEDS: lisinopril 10 MG tablet PO SCH (07:47)
[2022-03-06] MEDS: furosemide 20MG tablet PO SCH (07:47)
--- NOTE | 2022-03-06 08:00 | NUR ---
Pt. awake and eating breakfast at bedside. Pt. took all medications. Pt. reuqested pain medication for generalized body aches rated 7/10. Pt. received [place] with good effect
[2022-03-06] MEDS: lactose-reduced food (Ensure Enlive) - 237ml bottle PO SCH ×3 (08:16→18:10)
--- NOTE | 2022-03-06 10:00 | NUR ---
Pt. asleep in supine position. Normal R&R of respirations observed, count of 16.
--- NOTE | 2022-03-06 12:00 | NUR ---
Pt. was incontinent of urine. Pt. showered in [facility]. Pt. now sitting at bedside eating lunch.
--- NOTE | 2022-03-06 14:00 | NUR ---
Pt. asleep on left side. Normal R&R of respirations observed at 16 per minute
--- NOTE | 2022-03-06 17:00 | NUR ---
PPD read and is negative. Form signed and is in chart.
--- NOTE | 2022-03-06 17:30 | NUR ---
PRN Bude 5/325mg tablet given at 1730 for c/o generalized pain. [facility] on downtime.
--- NOTE | 2022-03-06 18:12 | NUR ---
per [facility], Pt.'s discharge date pushed back to 03/08. pt. needs a COVID (Nasopharyngeal) test done on 03/07 @ Noon.
--- NOTE | 2022-03-06 19:06 | NUR ---
The patient is resting quietly on her bed after eating most of her dinner. She is calm and pleasant when approached for the evening assessment
[2022-03-06] MEDS: OLANZAPINE 5 MG TABLET PO SCH (20:18)
[2022-03-06] MEDS: clonazePAM 1mg tablet PO PRN (20:19)
[2022-03-06] MEDS: ibuprofen tablet 400 MG TABLET PO PRN (20:19)
--- NOTE | 2022-03-06 20:24 | NUR ---
The patient up to use the bathroom and now having a snack with her evening medications
--- NOTE | 2022-03-06 22:07 | NUR ---
The patient is resting on her bed but awake
--- NOTE | 2022-03-06 23:29 | NUR ---
The patient appears to be sleeping
--- NOTE | 2022-03-07 00:57 | NUR ---
The patient is awake and sitting up at the bedside
--- NOTE | 2022-03-07 02:17 | NUR ---
The patient appears to be sleeping
--- NOTE | 2022-03-07 03:58 | NUR ---
The patient is resting on her bed but has been awake
[2022-03-07] MEDS: HYDROcodone/acetaminophen 5mg/325mg tablet PO PRN ×3 (04:06→20:22)
--- NOTE | 2022-03-07 04:57 | NUR ---
The patient has been awake for the majority of the night but during the day slept approximatey 10 hours.
--- NOTE | 2022-03-07 06:45 | NUR ---
Pt appears to be sleeping. RR even and unlabored.
[2022-03-07] MEDS: lisinopril 10 MG tablet PO SCH (08:41)
[2022-03-07] MEDS: montelukast 10mg tablet PO SCH (08:41)
[2022-03-07] MEDS: furosemide 20MG tablet PO SCH (08:41)
[2022-03-07] MEDS: lactose-reduced food (Ensure Enlive) - 237ml bottle PO SCH ×3 (08:42→18:00)
[2022-03-07] MEDS: clonazePAM 1mg tablet PO PRN ×2 (08:52→20:21)
[2022-03-07] MEDS: pantoprazole 40mg Tablet.DR PO SCH (08:52)
--- NOTE | 2022-03-07 09:00 | NUR ---
Pt resting with her eyes closed. Appears to be sleeping. Observed RR even and unlabored.
--- NOTE | 2022-03-07 10:51 | NUR ---
Pt snoring. RR even and unlabored.
--- NOTE | 2022-03-07 12:25 | NUR ---
Pt continues to eat lunch. Ambulates to BR with assistance. Pt is legally blind.
--- NOTE | 2022-03-07 13:50 | NUR ---
Pt will be transferred tomorrow to the facility listed in psych social notes. Transfer packet which includes face sheet, TMS, neg COVID, neg PPD results, 602 completed form and transportation certification form given to Cuca on ER overflow. I also advised her that pt will need a nava catheter placed prior to her last picker at 1000 and report needs to be called to number listed on packet. She says she will pass all this info on to the RN. Told her to have them call me with any questions. Continue to monitor.
--- NOTE | 2022-03-07 13:57 | NUR ---
Pt appears to be sleeping. RR even and unlabored.
--- NOTE | 2022-03-07 15:30 | NUR ---
Pt up to BR. She is calm and cooperative and pleasant with staff. Assisted to BR and back to her bed.
--- NOTE | 2022-03-07 17:02 | NUR ---
Pt appears to be sleeping. Observed chest rise and fall.
--- NOTE | 2022-03-07 17:39 | NUR ---
Pt resting; appears to be sleeping. RR even and unlabored.
--- NOTE | 2022-03-07 19:00 | NUR ---
The patient is quietly sitting at the bedside.
[2022-03-07] MEDS: OLANZAPINE 5 MG TABLET PO SCH (20:21)
--- NOTE | 2022-03-07 20:35 | NUR ---
The patient assisted as needed up to the bathroom. Complains of generalized pain and medications given.
--- NOTE | 2022-03-07 21:32 | NUR ---
The patient appears to be sleeping
--- NOTE | 2022-03-07 22:12 | NUR ---
The patient appears to be sleeping
--- NOTE | 2022-03-07 23:23 | NUR ---
The patient is awake and asking for her HS medications and it was explained to here that she already had them and she became agitated and swearing at staff stating that she did not get them
--- NOTE | 2022-03-08 00:05 | NUR ---
THe patient is awake and sitting on the side of her bed
--- NOTE | 2022-03-08 01:12 | NUR ---
The patient appears to be sleeping
--- NOTE | 2022-03-08 03:14 | NUR ---
The patient up to use the bathroom
--- NOTE | 2022-03-08 05:11 | NUR ---
The patient is resting on her bed
[2022-03-08] MEDS: HYDROcodone/acetaminophen 5mg/325mg tablet PO PRN ×2 (05:46→11:05)
[2022-03-08] MEDS: OLANZapine 5mg rapidly disint. tablet PO PRN (05:46)
[2022-03-08] MEDS: clonazePAM 1mg tablet PO PRN (05:51)
--- NOTE | 2022-03-08 05:54 | NUR ---
The patient appears to be responding to internal stimuli and is yelling "shut the fuck up!" and talking about quiting smoking 5 years ago. She repeatedly stating "shut up" Zyprexa given for agitation and she also requested klonopin which she was given.
--- NOTE | 2022-03-08 06:50 | NUR ---
Patient is sitting at bedside, she did get up and started to ambulate around. Patient was redirected to bed.
--- NOTE | 2022-03-08 07:36 | NUR ---
Patient is now sleeping quietly on her left side.
[2022-03-08] MEDS: lisinopril 10 MG tablet PO SCH (09:10)
[2022-03-08] MEDS: furosemide 20MG tablet PO SCH (09:10)
[2022-03-08] MEDS: montelukast 10mg tablet PO SCH (09:10)
[2022-03-08] MEDS: lactose-reduced food (Ensure Enlive) - 237ml bottle PO SCH (09:11)
[2022-03-08] MEDS: pantoprazole 40mg Tablet.DR PO SCH (09:14)
--- NOTE | 2022-03-08 09:23 | NUR ---
Patient is sitting up in bed. She has eaten her breakfast and is sipping coffee. Patient was compliant with her morning medications.
[2022-03-08] MEDS ORDERED: clonazePAM 1mg tablet PO ONE (10:20)
--- NOTE | 2022-03-08 10:33 | NUR ---
Report given to Shy, she is the Director of [facility].
--- NOTE | 2022-03-08 10:59 | NUR ---
Patient is being transported in a couple of minutes by [facility]. The patient is tearful but cooperative. Klonopin was given for anxiety. Motrin and one [place] 5 for her chronic pain.
[2022-03-08] MEDS: ibuprofen tablet 400 MG TABLET PO PRN (11:04)
[2022-03-08 11:10] VITALS: BP 101/64
== END 2022-03-08 11:30 ==
LOC: ER 00:55
DX: F79 Unspecified intellectual disabilities (principal); Z20.822 Contact with and (suspected) exposure to COVID-19; R62.7 Adult failure to thrive; I10 Essential (primary) hypertension; G89.29 Other chronic pain; F31.9 Bipolar disorder, unspecified; F20.9 Schizophrenia, unspecified; F12.90 Cannabis use, unspecified, uncomplicated; F11.90 Opioid use, unspecified, uncomplicated; Z86.69 Personal history of other diseases of the nervous system and sense organs; Z86.19 Personal history of other infectious and parasitic diseases; Z87.440 Personal history of urinary (tract) infections; Z86.14 Personal history of Methicillin resistant Staphylococcus aureus infection; Z85.118 Personal history of other malignant neoplasm of bronchus and lung; Z90.89 Acquired absence of other organs; Z98.890 Other specified postprocedural states; Z56.0 Unemployment, unspecified; Z59.00 Homelessness unspecified; Z79.899 Other long term (current) drug therapy
CPT/HCPCS: 36415; 80053; 80305; 80320; 81001; 84443; 85025; 87077; 87088; 87186; 87635; 96361; 96372; 99285; C9803; J3486